=== PATIENT | female | born 2000 | race Caucasian/White ===

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

== ENCOUNTER → 2021-02-01 13:47 | Outpatient (BNVA) | payer BC, MEDICAID, SELFPAY | PROVIDERS: Family Provider Nurse Practitioner Family; PCP Nurse Practitioner; Visit Provider Specialist | DX: G43.709 Chronic migraine without aura, not intractable, without status migrainosus (principal); M79.7 Fibromyalgia; G80.1 Spastic diplegic cerebral palsy; F41.9 Anxiety disorder, unspecified; G25.0 Essential tremor | CPT/HCPCS: 20550; 20552; 64615; 99214; J0585; J1030; J3490 ==

== ENCOUNTER → 2021-05-03 11:42 | Outpatient (BNVA) | payer BC, MEDICAID, SELFPAY | PROVIDERS: Family Provider Nurse Practitioner Family; PCP Nurse Practitioner; Visit Provider Specialist | DX: G43.711 Chronic migraine without aura, intractable, with status migrainosus (principal); G80.1 Spastic diplegic cerebral palsy; M46.1 Sacroiliitis, not elsewhere classified; M79.7 Fibromyalgia; F41.9 Anxiety disorder, unspecified; G25.0 Essential tremor | CPT/HCPCS: 64615; J0585 ==

== ENCOUNTER 2021-06-28 13:09 | Emergency (ER) | payer BC, MEDICAID, SELFPAY ==
[2021-06-28 13:30] VITALS: BP 143/94; PULSE 97; RESP 16; TEMP 36.7; O2SAT 96; BMI 35.2
--- NOTE | 2021-06-28 15:24 | W.ED.GENADLT ---
HPI - General Adult General: Chief complaint: General Medical Stated complaint: LOWER ABD PAIN/PRESSURE, NAUSEA Time Seen by Provider: 06/28/21 14:45 History of Present Illness: HPI narrative: Patient comes in complaining of numbness in her bilateral legs that started yesterday. States it started in her right leg and moved to the left leg. Denies any weakness. States this started after getting the COVID-vaccine. Denies any fever, nausea, vomiting, diarrhea. Associated symptoms: Deny chest pain, dyspnea, headache(s), nausea, rash, palpitations or vomiting Review of Systems Const: Denies: fever(s) or body aches Eyes: Denies: change in vision or blurry vision ENMT: Denies: throat pain or odynophagia Card: Denies: chest pain or palpitations Resp: Denies: dyspnea or productive cough GI: Reports: abdominal pain; Denies: nausea or vomiting : Denies: flank pain or dysuria Musc: Denies: neck pain or back pain Skin/Breast: Denies: rash or pruritus Neuro: Reports: numbness in extremities; Denies: headache(s) Psych: Denies: anxiety or change in appetite Endo: Denies: polyuria or excessive sweating PFSH ED PFSH: Medical History Cerebral palsy Chronic migraine without aura, intractable, with status migrainosus Foot anomaly, congenital Surgical History H/O release of tendon Social History Smoking risk assessment/counseling performed?: No Alcohol intake: never Counseling given: No Counseling given: No Lives independently: Yes Household members: family Marital status: Single Current occupational status: student and disabled History of recent travel: No Current gender identity: Female Physical Exam Const: COMMON NORMALS: no acute distress, patient oriented x3, healthy appearing and alert HENMT: COMMON NORMALS: normocephalic and atraumatic HEAD & SCALP: normocephalic and atraumatic Eye: COMMON NORMALS: Equal, round and reactive pupils present and EOMs intact bilaterally PUPIL: Yes Equal, round and reactive pupils present Neck/C-Spine: COMMON NORMALS: full ROM and supple Resp: COMMON NORMALS: normal respiratory effort, No retractions and No use of accessory muscles Cardio: COMMON NORMALS: regular rate and regular rhythm RATE: regular rate RHYTHM: regular rhythm GI: COMMON NORMALS: Normal to inspection, nondistended, normoactive bowel sounds present, Soft to palpation and non-tender PALPATION: Yes Soft to palpation Back/Pelvis: COMMON NORMALS: thoracic and lumbar spine normal to inspection and no thoracic nor lumbar tenderness Extremity: COMMON NORMALS: normal to inspection and full ROM Neuro: COMMON NORMALS: patient oriented x3 SENSORIUM/ORIENTATION: Yes alert SENSORY EXAM: Yes extremities (Subjective mild decrease in sensation of bilateral legs) Psych: COMMON NORMALS: mental status grossly normal and cooperative Skin: COMMON NORMALS: no rashes or lesions noted and no wounds GENERAL SKIN EXAM: no rashes or lesions noted Course Vital Signs: Vital signs: Vital Signs Temperature 98.0 F 06/28/21 13:30 Pulse Rate 97 06/28/21 13:30 Respiratory Rate 16 06/28/21 13:30 Blood Pressure 143/94 06/28/21 13:30 Pulse Oximetry 96 06/28/21 13:30 MDM - General Adult MDM Narrative: Medical decision making narrative: Patient comes in complaining of numbness in her bilateral legs that started yesterday. States it started in her right leg and moved to the left leg. Denies any weakness. States this started after getting the COVID-vaccine. Denies any fever, nausea, vomiting, diarrhea. She also complains of some mild suprapubic abdominal pain. Physical exam is unremarkable. Strength is 5 out of 5 in bilateral lower extremities. Reflexes are equal in all 4 extremities. Will check labs, and reassess. On reassessment I talked to the patient about the test results. Will discharge at this time with precautions return for worsening or changing symptoms. Lab Data: Labs: Lab Results 06/28/21 06/28/21 16:30 16:30 WBC 7.9 10^3/uL 10^3/ uL (4.5-13.0) RBC 5.20 10^6/uL 10^6 /uL (4.1-5.3) Hgb 15.8 g/dL H g/dL (11.5-15.3) Hct 47.3 % H % (37.0-47.0) MCV 91.0 fl fl (81-99) MCH 30.4 pg pg (28.0-34.0) MCHC 33.4 g/dL g/dL (30.0-36.0) RDW 12.2 % % (12.1-15.1) Plt Count 375 10^3/cmm 10^3 /cmm (130-400) MPV 8.8 fL fL (7.4-10.4) Neut % (Auto) 49.6 % % Lymph % (Auto) 39.7 % % [place] % (Auto) 9.1 % % Eos % (Auto) 0.9 % % Baso % (Auto) 0.6 % % Neut # (Auto) 3.91 10^3/uL 10^3 /uL (1.8-8.0) Lymph # (Auto) 3.1 10^3/uL 10^3/ uL (1.5-6.5) [place] # (Auto) 0.7 10^3/uL 10^3/ uL (0.2-0.9) Eos # (Auto) 0.1 10^3/uL 10^3/ uL (0.0-0.8) Baso # (Auto) 0.1 10^3/uL 10^3/ uL (0.0-0.1) Nucleated RBC % (a uto) 0 % % Nucleated RBCs # 0.0 /100WBC /100W BC ESR 30 mm/hr H mm/hr (0-15) Sodium 138 mmol/L mmol/L (136-145) Potassium 3.9 mmol/L mmol/L (3.5-5.1) Chloride 100 mmol/L mmol/L (98-107) Carbon Dioxide 22 mmol/L mmol/L (22-29) Anion Gap 19.9 H (5-19) BUN 6 mg/dL mg/dL (6-20) Creatinine 0.5 mg/dL mg/dL (0.5-0.9) GFR Calculation 158.9 mL/min H mL /min (90-130) Glucose 87 mg/dL mg/dL (65-115) Calculated Osmolal ity 283 mOsm/kg L mOs m/kg (285-295) Calcium 9.0 mg/dL mg/dL (8.5-10.5) Total Bilirubin 0.9 mg/dL mg/dL (0.15-1.2) AST 33 U/L H U/L (0-32) ALT 39 U/L H U/L (0-33) Alkaline Phosphata se 103 IU/L IU/L (35-105) C-Reactive Protein 48.0 mg/L H mg/L (0.0-4.9) Total Protein 8.0 g/dL g/dL (6.6-8.7) Albumin 4.3 g/dL g/dL (3.5-5.2) Globulin 3.7 g/dL g/dL (1.3-4.6) Lipase 26 U/L U/L (13-60) Discharge Plan Discharge Patient Disposition: Home Clinical Impression: Adverse effect of COVID-19 vaccine Condition: Stable Prescriptions: No Action ciprofloxacin 250 mg/5 mL suspension,microcapsule recon 250 mg PO BID RF: 0 desvenlafaxine 50 mg tablet extended release 24 hr 50 mg PO DAILY RF: 0 cranberry 400 mg capsule 400 mg PO DAILY RF: 0 wenyfgsotjis-Dn-mnbc-minerals 18-0.4 mg tablet PO RF: 0 multivitamin with minerals [Hair,Skin and Nails] Tablet 1 tab PO DAILY RF: 0 ondansetron HCl [Zofran] 4 mg tablet 4 mg PO Q6H RF: 0 diclofenac potassium 50 mg tablet 50 mg PO BID RF: 0 cetirizine 10 mg capsule 10 mg PO QDAY RF: 0 melatonin 10 mg capsule 10 mg PO QDAY PRNRF: 0 tizanidine 4 mg capsule 4 mg PO Q8H PRNRF: 0 omeprazole 40 mg capsule,delayed release(DR/EC) 40 mg PO DAILY RF: 0 diazepam [Valium] 10 mg tablet 10 mg PO .PRN PRN (Reason: anxiety) 90 Days Qty: 7 RF: 2 Mirena 20 mcg/24 hours (6 yrs) 52 mg intrauterine device intrauterine RF: 0 sumatriptan succinate [Imitrex] 100 mg tablet 100 mg PO Q2H Qty: 9 RF: 3 venlafaxine [Effexor XR] 150 mg capsule,extended release 24hr 150 mg PO DAILY Qty: 30 RF: 4 propranolol 40 mg tablet 20 mg PO BID Qty: 60 RF: 2 Discharge Orders: Discharge ED (Routine); Ordered 06/28/21 Ordered By: Juan Pablo Ayala Referrals: Magnus Jiang, DOCTOR OF NURSE ANESTHESIA [Primary Care Provider] - Coding Level of Care Code ED Network Security Consultant for Chg Fwd Exam Comprehensive
[2021-06-28 16:44] LABS: Basophils # 0.1 10^3/uL (0.0-0.1); Basophils % 0.6 %; Eosinophils # 0.1 10^3/uL (0.0-0.8); Eosinophils % 0.9 %; Hematocrit 47.3 % (37.0-47.0); Hemoglobin 15.8 g/dL (11.5-15.3); Lymphocytes # 3.1 10^3/uL (1.5-6.5); Lymphocytes % 39.7 %; Mean Corpuscular HGB Conc 33.4 g/dL (30.0-36.0); Mean Corpuscular Hemoglobin 30.4 pg (28.0-34.0); Mean Platelet Volume 8.8 fL (7.4-10.4); Monocytes # 0.7 10^3/uL (0.2-0.9); Monocytes % 9.1 %; Neutrophils # 3.91 10^3/uL (1.8-8.0); Neutrophils % 49.6 %; Nucleated Red Blood Cells % 0 %; Platelet Count 375 10^3/cmm (130-400); Red Cell Distribution Width 12.2 % (12.1-15.1); White Blood Count 7.9 10^3/uL (4.5-13.0)
[2021-06-28 16:53] LABS: Erythrocyte Sedimentation Rate 30 mm/hr (0-15)
[2021-06-28 17:17] LABS: Alanine Aminotransferase 39 U/L (0-33); Albumin Level 4.3 g/dL (3.5-5.2); Alkaline Phosphatase 103 IU/L (35-105); Anion Gap 19.9 (5-19); Aspartate Amino Transferase 33 U/L (0-32); Blood Urea Nitrogen 6 mg/dL (6-20); Carbon Dioxide 22 mmol/L (22-29); Chloride 100 mmol/L (98-107); Globulin 3.7 g/dL (1.3-4.6); Glomerular Filtration Rate 158.9 mL/min (90-130); Glucose 87 mg/dL (65-115); Lipase 26 U/L (13-60); Osmolality Calculated 283 mOsm/kg (285-295); Potassium 3.9 mmol/L (3.5-5.1); Sodium 138 mmol/L (136-145); Total Bilirubin 0.9 mg/dL (0.15-1.2)
[2021-06-28 19:05] VITALS: BP 143/94; PULSE 96; RESP 16; O2SAT 97
== END 2021-06-28 19:07 | disposition home or self-care (01) ==
PROVIDERS: Nurse Practitioner Family; Emergency Provider Emergency Medicine; PCP Nurse Practitioner
DX: T88.7XXA Unspecified adverse effect of drug or medicament, initial encounter (principal); T50.B95A Adverse effect of other viral vaccines, initial encounter; G80.9 Cerebral palsy, unspecified
CPT/HCPCS: 36415; 80053; 83690; 85025; 85651; 86140; 99282

== ENCOUNTER → 2021-07-26 11:39 | Outpatient (BNVA) | payer BC, MEDICAID, SELFPAY | PROVIDERS: PCP Nurse Practitioner; Visit Provider Specialist | DX: G43.711 Chronic migraine without aura, intractable, with status migrainosus (principal) | CPT/HCPCS: 64615; J0585 ==

== ENCOUNTER → 2021-09-27 07:50 | Outpatient (BNVA) | payer BC, MEDICAID, SELFPAY | PROVIDERS: PCP Nurse Practitioner; Visit Provider Podiatrist Foot & Ankle Surgery | DX: L60.0 Ingrowing nail (principal); Z98.890 Other specified postprocedural states; L60.3 Nail dystrophy | CPT/HCPCS: 11750; 99213 ==

== ENCOUNTER → 2021-10-09 08:51 | Outpatient (BNVA) | payer BC, MEDICAID, SELFPAY | PROVIDERS: PCP Nurse Practitioner; Visit Provider Podiatrist Foot & Ankle Surgery | DX: L60.0 Ingrowing nail (principal); Z98.890 Other specified postprocedural states | CPT/HCPCS: 99213 ==

== ENCOUNTER → 2021-10-18 11:46 | Outpatient (BNVA) | payer BC, MEDICAID, SELFPAY | PROVIDERS: PCP Nurse Practitioner; Visit Provider Specialist | DX: G43.711 Chronic migraine without aura, intractable, with status migrainosus (principal) | CPT/HCPCS: 64615; J0585 ==

== ENCOUNTER → 2022-01-10 13:19 | Outpatient (BNVA) | payer MEDICARE, BC, MEDICAID, SELFPAY | PROVIDERS: PCP Nurse Practitioner; Visit Provider Specialist | DX: G43.711 Chronic migraine without aura, intractable, with status migrainosus (principal) | CPT/HCPCS: 64615; J0585 ==

== ENCOUNTER 2022-01-15 23:18 | Emergency (ER) | payer MEDICARE, BC, MEDICAID, SELFPAY ==
[2022-01-15 23:44] VITALS: BP 157/108; PULSE 98; RESP 18; TEMP 36.7; O2SAT 98; BMI 37.1
[2022-01-16 00:15] LABS: Basophils # 0.1 10^3/uL (0.0-0.1); Basophils % 0.7 %; Eosinophils % 0.2 %; Hematocrit 46.2 % (37.0-47.0); Hemoglobin 15.7 g/dL (11.5-15.3); Lymphocytes # 4.2 10^3/uL (1.5-6.5); Mean Corpuscular Hemoglobin 30.5 pg (28.0-34.0); Mean Corpuscular Volume 89.9 fl (81-99); Mean Platelet Volume 8.8 fL (7.4-10.4); Monocytes # 0.7 10^3/uL (0.2-0.9); Monocytes % 4.7 %; Neutrophils # 10.37 10^3/uL (1.8-8.0); Neutrophils % 67.1 %; Nucleated Red Blood Cells % 0 %; Platelet Count 481 10^3/cmm (130-400); Red Blood Count 5.14 10^6/uL (4.1-5.3); Red Cell Distribution Width 11.9 % (12.1-15.1); White Blood Count 15.5 10^3/uL (4.5-13.0)
[2022-01-16 00:29] LABS: Alanine Aminotransferase 36 U/L (0-33); Albumin Level 4.3 g/dL (3.5-5.2); Alkaline Phosphatase 105 IU/L (35-105); Anion Gap 18.8 (5-19); Aspartate Amino Transferase 31 U/L (0-32); Blood Urea Nitrogen 9 mg/dL (6-20); Calcium 9.9 mg/dL (8.5-10.5); Carbon Dioxide 22 mmol/L (22-29); Chloride 103 mmol/L (98-107); Glomerular Filtration Rate 157.3 mL/min (90-130); Glucose 98 mg/dL (65-115); Lipase 42 U/L (13-60); Osmolality Calculated 289 mOsm/kg (285-295); Potassium 3.8 mmol/L (3.5-5.1); Sodium 140 mmol/L (136-145); Total Bilirubin 0.9 mg/dL (0.15-1.2); Total Protein 8.3 g/dL (6.6-8.7)
[2022-01-16 00:35] LABS: HCG, Serum Qual Negative (Negative)
[2022-01-16] MEDS: ondansetron 2 mg/ML SDV 2 mL 4 MG IVP (00:58)
--- NOTE | 2022-01-16 01:44 | CTR_ITS ---
PROCEDURE INFORMATION: Exam: CT Abdomen And Pelvis Without Contrast Exam date and time: 01/16/2022 2:01 AM Age: 21 years old Clinical indication: Nausea and vomiting; Abdominal pain; Generalized; Prior surgery; Surgery type: Iud. Back. Patient HX: Abd pain with n/v and recent abnormal weight loss. TECHNIQUE: Imaging protocol: Computed tomography of the abdomen and pelvis without contrast. Radiation optimization: All CT scans at this facility use at least one of these dose optimization techniques: automated exposure control; mA and/or kV adjustment per patient size (includes targeted exams where dose is matched to clinical indication); or iterative reconstruction. COMPARISON: CT abdomen pelvis w con* [id number] 06/04/2018 12:00 PM RADIATION DOSE METRICS: Total DLP (mGy-cm): 994.97 FINDINGS: Lungs: The lung bases are clear. Liver: There is fatty infiltration of the liver. Evaluated portions of the liver otherwise appear essentially unremarkable. The upper liver is not included. Gallbladder and bile ducts: No definite gallbladder abnormality by CT. No biliary tree dilation. Pancreas: Unremarkable. Spleen: Unremarkable. Adrenal glands: Unremarkable. Kidneys and ureters: Relatively small right kidney, with areas of parenchymal scarring, similar to the prior exam. No hydronephrosis of either kidney. No visible renal or ureteral calculus. No perinephric fluid. Stomach and bowel: Possibility of somewhat thickened mucosa/wall in the distal antrum of the stomach. This is a nonspecific appearance, and could be transient on CT, but could also represent evidence for gastritis or peptic ulcer disease. Please correlate clinically. No significant bowel distention. There are no CT findings to strongly suggest diverticulitis. Appendix: The appendix is visualized and appears normal. Intraperitoneal space: No free intraperitoneal air, or ascites. Vasculature: No evidence for abdominal aortic aneurysm. Lymph nodes: No retroperitoneal adenopathy. Urinary bladder: No visible calculus in the urinary bladder. Possibly some mild diffuse urinary bladder wall thickening. However, evaluation is somewhat limited, as the bladder is not well distended. While nonspecific, this could indicate evidence for cystitis. Please correlate clinically. Reproductive: An IUD is present within the uterus. 55 x 43 x 55 mm right adnexal/ovarian cyst. This is somewhat large for a physiologic cyst, but that is still fairly likely in this young age group. Other etiologies are not excluded. Ultrasound could further evaluate these ovarian findings if felt clinically indicated, and could also be used for appropriate follow-up, to insure against a persistent or enlarging lesion/neoplasm. Ultrasound may also be useful if there is clinical concern for ovarian torsion. No significant cul-de-sac fluid. Bones/joints: No significant acute finding. Soft tissues: No significant acute finding. CT/CT abdomen pelvis wo con [id number] IMPRESSION: 1. 55 x 43 x 55 mm right adnexal/ovarian cyst, see above discussion. 2. No free air or bowel distention. No evidence for bowel obstruction. 3. Normal appendix. 4. Possible thickened mucosa/wall in the distal stomach, see above discussion. 5. No hydronephrosis of either kidney. No visible ureteral calculus. 6. Possible mild urinary bladder wall thickening, see above. 7. Other findings discussed above.
--- NOTE | 2022-01-16 01:44 | ED_ITS ---
HPI - Abdominal Pain General: Chief Complaint: Abdominal Pain Stated Complaint: ABD Pain/N/V/D Time Seen by Provider: 01/15/22 23:43 Source: patient Mode of arrival: ambulatory Limitations: no limitations History of Present Illness: 21-year-old female who has chronic history of GI issues. States she is actually scheduled next week for scope with general surgeon here. States that tonight started having vomiting diarrhea but is having more pain than typical she is having diffuse pain she rates a 7 out of 10 denies any fevers. She denies any worsening improving factors. Associated Symptoms: Reports diarrhea, nausea and vomiting; Denies chills, dysuria and fever(s) Review of Systems Const: Denies: fever(s), chills, body aches or change in appetite Eyes: Denies: blurry vision or eye discomfort ENMT: Denies: throat pain or dental pain Card: Denies: chest pain Resp: Denies: dyspnea GI: Reports: abdominal pain, nausea, vomiting and diarrhea : Denies: dysuria Musc: Denies: neck pain or back pain Skin/Breast: Denies: rash Neuro: Denies: headache(s) Psych: Denies: depression Madhu/Lymph: Denies: easy bruising All/Imm: Denies: urticaria PFSH ED PFSH: Medical History Cerebral palsy Chronic migraine without aura, intractable, with status migrainosus Foot anomaly, congenital Surgical History H/O release of tendon Social History Smoking and tobacco status: never smoked Smoking risk assessment/counseling performed?: No Alcohol intake: never Counseling given: No Counseling given: No Lives independently: Yes Household members: family Marital status: Single Current occupational status: student and disabled History of recent travel: No Current gender identity: Female Physical Exam Const: COMMON NORMALS: no acute distress, patient oriented x3 and healthy appearing HENMT: COMMON NORMALS: normocephalic and atraumatic HEAD & SCALP: normocephalic and atraumatic Eye: COMMON NORMALS: Equal, round and reactive pupils present and EOMs intact bilaterally PUPIL: Yes Equal, round and reactive pupils present Neck/C-Spine: COMMON NORMALS: full ROM and supple Chest: COMMONS NORMALS: normal inspection of the chest and normal palpation of entire chest wall Resp: COMMON NORMALS: normal respiratory effort, No retractions, No use of accessory muscles and clear to auscultation bilaterally AUSCULTATION: clear to auscultation bilaterally Cardio: COMMON NORMALS: regular rate, regular rhythm and No murmurs present (Cardio) RATE: regular rate RHYTHM: regular rhythm GI: COMMON NORMALS: Soft to palpation, non-tender and no masses PALPATION: Yes Soft to palpation OTHER: diffuse tenderness Extremity: COMMON NORMALS: normal to inspection and full ROM Neuro: COMMON NORMALS: patient oriented x3, moves all extremities and no focal motor deficits Psych: COMMON NORMALS: mental status grossly normal, Normal thought process present and cooperative THOUGHT PROCESS: Normal thought process present Skin: COMMON NORMALS: no rashes or lesions noted and no wounds GENERAL SKIN EXAM: no rashes or lesions noted Course Vital Signs: Vital signs: Vital Signs Temperature 98.1 F 01/15/22 23:44 Pulse Rate 98 01/15/22 23:44 Respiratory Rate 18 01/16/22 01:59 Blood Pressure 157/108 01/15/22 23:44 Pulse Oximetry 98 01/16/22 01:59 Oxygen Delivery Me thod 01/15/22 23:44 MDM - Abdominal Pain Medical Decision Making Patient presents here with vomiting is been chronic in nature she feels much improved here after Reglan she has follow-up with Dr. Pringle of surgery for scope on Friday. Her CT showed a ovarian cyst she has a history of ovarian cyst she is not in severe pain she has no signs of torsion here she stable for discharge we will get her OB follow-up as well she is to return if worsening she understands agrees to plan. 0 Lab Data : 01/15/22 23:57 01/15/22 23:57 Labs/Radiology: Radiology Impressions Abdomen/Pelvis CT 01/16/22 01:44 IMPRESSION: 1. 55 x 43 x 55 mm right adnexal/ovarian cyst, see above discussion. 2. No free air or bowel distention. No evidence for bowel obstruction. 3. Normal appendix. 4. Possible thickened mucosa/wall in the distal stomach, see above discussion. 5. No hydronephrosis of either kidney. No visible ureteral calculus. 6. Possible mild urinary bladder wall thickening, see above. 7. Other findings discussed above. Laboratory Results WBC 15.5 10^3/uL (4.5-13.0) H 01/15/22 23:57 RBC 5.14 10^6/uL (4.1-5.3) 01/15/22 23:57 Hgb 15.7 g/dL (11.5-15.3) H 01/15/22 23:57 Hct 46.2 % (37.0-47.0) 01/15/22 23:57 MCV 89.9 fl (81-99) 01/15/22 23:57 MCH 30.5 pg (28.0-34.0) 01/15/22 23:57 MCHC 34.0 g/dL (30.0-36.0) 01/15/22 23:57 RDW 11.9 % (12.1-15.1) L 01/15/22 23:57 Plt Count 481 10^3/cmm (130-400) H 01/15/22 23:57 MPV 8.8 fL (7.4-10.4) 01/15/22 23:57 Neut % (Auto) 67.1 % 01/15/22 23:57 Lymph % (Auto) 27.0 % 01/15/22 23:57 [place] % (Auto) 4.7 % 01/15/22 23:57 Eos % (Auto) 0.2 % 01/15/22 23:57 Baso % (Auto) 0.7 % 01/15/22 23:57 Neut # (Auto) 10.37 10^3/uL (1.8-8.0) H 01/15/22 23:57 Lymph # (Auto) 4.2 10^3/uL (1.5-6.5) 01/15/22 23:57 [place] # (Auto) 0.7 10^3/uL (0.2-0.9) 01/15/22 23:57 Eos # (Auto) 0.0 10^3/uL (0.0-0.8) 01/15/22 23:57 Baso # (Auto) 0.1 10^3/uL (0.0-0.1) 01/15/22 23:57 Nucleated RBC % (auto) 0 % 01/15/22 23:57 Nucleated RBCs # 0.0 /100WBC 01/15/22 23:57 Sodium 140 mmol/L (136-145) 01/15/22 23:57 Potassium 3.8 mmol/L (3.5-5.1) 01/15/22 23:57 Chloride 103 mmol/L (98-107) 01/15/22 23:57 Carbon Dioxide 22 mmol/L (22-29) 01/15/22 23:57 Anion Gap 18.8 (5-19) 01/15/22 23:57 BUN 9 mg/dL (6-20) 01/15/22 23:57 Creatinine 0.5 mg/dL (0.5-0.9) 01/15/22 23:57 GFR Calculation 157.3 mL/min (90-130) H 01/15/22 23:57 Glucose 98 mg/dL (65-115) 01/15/22 23:57 Calculated Osmolality 289 mOsm/kg (285-295) 01/15/22 23:57 Calcium 9.9 mg/dL (8.5-10.5) 01/15/22 23:57 Total Bilirubin 0.9 mg/dL (0.15-1.2) 01/15/22 23:57 AST 31 U/L (0-32) 01/15/22 23:57 ALT 36 U/L (0-33) H 01/15/22 23:57 Alkaline Phosphatase 105 IU/L (35-105) 01/15/22 23:57 Total Protein 8.3 g/dL (6.6-8.7) 01/15/22 23:57 Albumin 4.3 g/dL (3.5-5.2) 01/15/22 23:57 Globulin 4.0 g/dL (1.3-4.6) 01/15/22 23:57 Lipase 42 U/L (13-60) 01/15/22 23:57 HCG, Qual Negative (Negative) 01/15/22 23:57 Urine Color Yellow (Yellow) 01/16/22 01:17 Urine Appearance Clear (CLEAR) 01/16/22 01:17 Urine pH 6 (5-7) 01/16/22 01:17 Ur Specific Revloc 1.020 (1.005-1.030) 01/16/22 01:17 Urine Protein Neg (Negative) 01/16/22 01:17 Urine Glucose (UA) Norm (Normal) 01/16/22 01:17 Urine Ketones 2+ (Negative) H 01/16/22 01:17 Urine Blood 3+ (Negative) H 01/16/22 01:17 Urine Nitrate Negative (Negative) 01/16/22 01:17 Urine Bilirubin Neg (Negative) 01/16/22 01:17 Urine Urobilinogen Norm mg/dL (Negative) 01/16/22 01:17 Ur Leukocyte Esterase Negative (Negative) 01/16/22 01:17 Urine RBC 0-4 /hpf (0-2) H 01/16/22 01:17 Urine WBC 15-25 /hpf (0-5) H 01/16/22 01:17 Ur Squamous Epith Cells 25-40 /hpf (0-5) H 01/16/22 01:17 Amorphous Sediment Not Reportable 01/16/22 01:17 Urine Bacteria 2+ /hpf (NONE) H 01/16/22 01:17 Urine Mucus 2+ /hpf 01/16/22 01:17 Discharge Plan Discharge Patient Disposition: Home Clinical Impression: Vomiting, Ovarian cyst Condition: Stable Prescriptions: New hydrocodone-acetaminophen 5-325 mg tablet 1 tab PO Q6H PRN (Reason: pain) Qty: 14 0RF ondansetron 4 mg tablet,disintegrating 4 mg PO Q6H PRN (Reason: nausea and vomiting) Qty: 14 0RF No Action desvenlafaxine 50 mg tablet extended release 24 hr 50 mg PO DAILY diclofenac potassium 50 mg tablet 50 mg PO BID cetirizine 10 mg capsule 10 mg PO QDAY tizanidine 4 mg capsule 4 mg PO Q8H PRN diazepam [Valium] 10 mg tablet 10 mg PO .PRN PRN (Reason: anxiety) 90 Days Qty: 7 2RF Rx Instructions: As needed for Botox Mirena 20 mcg/24 hours (6 yrs) 52 mg intrauterine device intrauterine escitalopram oxalate [Lexapro] 10 mg tablet 10 mg PO DAILY fluticasone propionate [Children's Flonase Allergy Rlf] 50 mcg/actuation sp ray,suspension 1 spray intranasal BID Rx Instructions: administer into each nostril pantoprazole 40 mg tablet,delayed release (DR/EC) 40 mg PO DAILY famotidine 20 mg tablet 20 mg PO DAILY ondansetron 8 mg tablet,disintegrating 8 mg PO Q8H imipramine HCl 10 mg tablet 50 mg PO .at bedtime sumatriptan succinate [Imitrex] 100 mg tablet 100 mg PO Q2H Qty: 9 3RF propranolol 40 mg tablet See Rx Instructions .ROUTE .COMPLEX Qty: 60 2RF Dose Instruction: TAKE ONE HALF (1/2) TABLET BY MOUTH TWICE A DAY Rx Instructions: TAKE ONE HALF (1/2) TABLET BY MOUTH TWICE A DAY peg 3350-electrolytes [Golytely] 236-22.74-6.74 -5.86 gram recon soln 240 ml PO Q10M Qty: 4000 0RF Rx Instructions: until fecal effluent is clear Discharge Orders: Discharge ED (Routine); Ordered 01/16/22 Ordered By: Belia Roche Referrals: Magnus Jiang FNP [Primary Care Provider] - Ashlee Leija MD [Physician] - 1-3 days Discharge Diet: Advance as tolerated Discharge Activity: Resume usual activity Patient Instructions: Ovarian Cyst (ED), Opioid Safety Coding Level of Care Code ED Orthopaedic General for Chg Fwd Exam Comprehensive
[2022-01-16 01:59] VITALS: RESP 18; O2SAT 98
[2022-01-16] MEDS: morphine 4 mg/mL SDV 1 mL IVP (01:59)
--- NOTE | 2022-01-16 01:59 | PC.NURSE ---
patient transported to ct via wheelchair per Ct techinican with no difficulties.
[2022-01-16 02:02] LABS: Add Urine Microscopic? YES; Bacteria Urine 2+ /hpf; Bilirubin Urine Neg (Negative); Blood Urine 3+ (Negative); Glucose Urine UA Norm (Normal); Ketones Urine 2+ (Negative); Leukocyte Esterase Urine Negative (Negative); Mucus Urine 2+ /hpf; Nitrate Urine Negative (Negative); Protein Urine Neg (Negative); RBC Urine 0-4 /hpf (0-2); Squamous Epithelial Cell Urine 25-40 /hpf (0-5); Urine Appearance Clear (CLEAR); Urine Color Yellow (Yellow); Urobilinogen Urine Norm (Negative); WBC Urine 15-25 /hpf (0-5); pH Urine 6 (5-7)
[2022-01-16 02:03] LABS: Add Urine Culture? No
[2022-01-16] MEDS: diphenhydrAMINE 50 mg/mL SDV 1mL IVP (02:36)
[2022-01-16] MEDS: metoclopramide 5 mg/mL SDV 2 mL 10 MG IVP (02:36)
[2022-01-16] MEDS: sodium chloride 0.9% 1,000 ML 999 ML IV ×2 (02:36)
[2022-01-16 05:12] VITALS: BP 157/101; PULSE 94; RESP 18; TEMP 37.1; O2SAT 98
--- NOTE | 2022-01-16 21:04 | DCPLANNER ---
Addendum entered by Lilian Salgado 02/14/22 08:02: manager commercial was sent the following message from [facility] regarding follow up appointment: LEFT PT. TO VOICEMAILS AND SENT LETTER Original Note: manager commercial had message to schedule a follow up appointment for patient with [facility]. manager commercial sent patients information to the front office staff at [facility]. Patients information will be printed and reviewed. Clinic will call patient with appointment information.
== END 2022-01-16 05:14 | disposition home or self-care (01) ==
PROVIDERS: Emergency Provider Emergency Medicine; PCP Nurse Practitioner
DX: N83.201 Unspecified ovarian cyst, right side (principal); R11.11 Vomiting without nausea; G80.9 Cerebral palsy, unspecified
CPT/HCPCS: 74176; 80053; 81001; 83690; 84703; 85025; 96361; 96374; 96375; 99285; J1200; J2270; J2405; J2765; J7030

== ENCOUNTER 2022-01-21 06:06 | Day surgery (SDC) | payer MEDICARE, BC, MEDICAID, SELFPAY ==
[2022-01-18 07:41] VITALS: BMI 37.0
[2022-01-21 06:29] VITALS: BP 140/107; PULSE 97; RESP 18; TEMP 36.3; O2SAT 95
[2022-01-21] MEDS: sodium chloride 0.9% 1,000 ML 30 ML IV (06:43)
[2022-01-21 06:46] LABS: OR HCG Qualitative Urine Negative (Negative)
--- NOTE | 2022-01-21 06:54 | P.ANESASSM_ITS ---
Pre-Anesthetic Assessment Height/Weight: Height 1.52 m Weight 86.183 kg Temp Pulse Resp BP Pulse Ox O2 Del Method 97.4 F L 97 18 140/107 95 01/21/22 06:29 01/21/22 06:29 01/21/22 06:29 01/21/22 06:29 01/21/22 06:29 01/21/22 06:29 Preop Diagnosis: Heartburn Operation Date: 01/21/22 07:30 Proposed Procedures p EGD 15824,R10.3(Not Applicable) - Artie Do MD Familial anesthetic complications: none Was Beta Gavin taken within 24 hours: N/A Was Clonidine taken within 24 hours: N/A Last intake: Intake Last Liquid Date 01/20/22 Last Liquid Time 21:00 Last Solid Date 01/20/22 Last Solid Time 17:45 Last Intake: 20:00 Social No alcohol and No tobacco Exam alert and oriented x 3 Airway Submandibular: within normal limits Cervical ROM: within normal limits Mallampati: Class III Dentition: full History/ROS No significant history except as noted Pulmonary None reported CV/HEM None reported None reported Hepatic None reported GI Gastroesophageal Reflux Disease Metabolic Morbid Obesity [facility] [place] Lower Back Pain Neuropsych Anxiety and Depression Anesthetic Plan ASA status: 3 Anesthesia: Anesthesia Evaluation and MAC Risk of > 500 ml blood loss (7ml/kg in children): No Medications/Allergies Home Medications Medication Instructions Recorded Confirmed Last Taken Type cetirizine 10 mg capsule 10 mg PO QDAY 07/01/19 01/21/22 01/20/22 History diclofenac potassium 50 mg tablet 50 mg PO BID 07/01/19 01/21/22 01/20/22 His tory diazepam 10 mg tablet (Valium) 10 mg PO .PRN PRN anxiety 3 months 03/16/20 01/21/22 Unknown Rx #7 tabs tizanidine 4 mg capsule 4 mg PO Q8H PRN Muscle Spasm 03/16/20 01/21/22 01/20/22 History levonorgestrel 20 mcg/24 hours (7 20 mcg intrauterine DIRECTED 12/27/20 01/21/22 Unknown History yrs) 52 mg intrauterine device (Mirena) desvenlafaxine 50 mg 50 mg PO DAILY 02/01/21 01/21/22 01/20/22 History tablet,extended release 24 hr famotidine 20 mg tablet 20 mg PO DAILY 11/27/21 01/21/22 01/20/22 History fluticasone propionate 50 1 spray intranasal BID 11/27/21 01/21/22 Unknown History mcg/actuation nasal spray,suspension (Children's Flonase Allergy Relief) imipramine HCl 10 mg tablet 50 mg PO .at bedtime 11/27/21 01/21/22 01/20/22 H istory pantoprazole 40 mg tablet,delayed 40 mg PO DAILY 11/27/21 01/21/22 01/20/22 History release propranolol 40 mg tablet See Rx Instructions .Route 12/18/21 01/21/22 01/20/22 Rx .COMPLEX #60 tabs hydrocodone 5 mg-acetaminophen 325 1 tab PO Q6H PRN pain #14 tabs 01/16/22 01/21/22 Unknown Rx mg tablet ondansetron 4 mg disintegrating 4 mg PO Q6H PRN nausea and 01/16/22 01/21/22 01/20/22 Rx tablet vomiting #14 tabs sumatriptan succinate 100 mg 100 mg PO Q2H PRN migraines 01/18/22 01/21/22 01/19/22 History tablet (Imitrex) Allergies Allergy/AdvReac Type Severity Reaction Status Date / Time Penicillins Allergy rash Verified 01/21/22 06:25 Current Medications Generic Name Dose Route Start Last Admin Trade Name Freq PRN Reason Stop Dose Admin Sodium Chloride 1,000 mls @ 30 mls/hr 01/21/22 06:15 01/21/22 06:43 Sodium Chloride 0.9% IV 30 mls/hr .Q24H DEMETRI Administration PFSH Anesthesia Medical History Cerebral palsy Chronic migraine without aura, intractable, with status migrainosus Foot anomaly, congenital Surgical History H/O release of tendon Social History Smoking and tobacco status: never smoked Smoking risk assessment/counseling performed?: No Alcohol intake: never Counseling given: No Counseling given: No Lives independently: Yes Household members: family Marital status: Single Current occupational status: student and disabled History of recent travel: No Current gender identity: Female Female Reproductive History Date of last menstrual period: 01/17/22 Data Anesthesia Cardiac Studies: No Data to Display
--- NOTE | 2022-01-21 07:33 | P.HP_ITS ---
Same Day Surgery H&P Indication for Procedure/HPI DATE OF PROCEDURE: January 21, 2022 CHIEF COMPLAINT/INDICATIONFOR SURGICAL PROCEDURE: Abdominal pain PREOP DIAGNOSIS: Heartburn PLANNED PROCEDURE: Operation Date: 01/21/22 07:30 Proposed Procedures p EGD 30625,R10.3(Not Applicable) - Artie Do MD Medications/Allergies* Home Medications Medication Instructions Recorded Confirmed Type cetirizine 10 mg capsule 10 mg PO QDAY 07/01/19 01/21/22 History diclofenac potassium 50 mg tablet 50 mg PO BID 07/01/19 01/21/22 History tizanidine 4 mg capsule 4 mg PO Q8H PRN Muscle Spasm 03/16/20 01/21/22 History levonorgestrel 20 mcg/24 hours (7 20 mcg intrauterine DIRECTED 12/27/20 01/21/22 History yrs) 52 mg intrauterine device (Mirena) desvenlafaxine 50 mg 50 mg PO DAILY 02/01/21 01/21/22 History tablet,extended release 24 hr famotidine 20 mg tablet 20 mg PO DAILY 11/27/21 01/21/22 History fluticasone propionate 50 1 spray intranasal BID 11/27/21 01/21/22 History mcg/actuation nasal spray,suspension (Children's Flonase Allergy Relief) imipramine HCl 10 mg tablet 50 mg PO .at bedtime 11/27/21 01/21/22 History pantoprazole 40 mg tablet,delayed 40 mg PO DAILY 11/27/21 01/21/22 History release sumatriptan succinate 100 mg 100 mg PO Q2H PRN migraines 01/18/22 01/21/22 History tablet (Imitrex) Allergies/Adverse Reactions Allergy/AdvReac Type Severity Reaction Status Date / Time Penicillins Allergy rash Verified 01/21/22 06:25 Current Medications: Generic Name Dose Route Start Last Admin Trade Name Freq PRN Reason Stop Dose Admin Sodium Chloride 1,000 mls @ 30 mls/hr 01/21/22 06:15 01/21/22 06:43 Sodium Chloride 0.9% IV 30 mls/hr .Q24H DEMETRI Administration Pertinent History/Comorbid Conditions* Medical History (Updated 01/16/22 @ 05:04 by Belia Roche MD) Cerebral palsy Chronic migraine without aura, intractable, with status migrainosus Foot anomaly, congenital Surgical History (Updated 10/09/21 @ 09:26 by Binh Mcfarland DPM) H/O release of tendon Social History Smoking and tobacco status: never smoked Smoking risk assessment/counseling performed?: No Alcohol intake: never Counseling given: No Counseling given: No Lives independently: Yes Household members: family Marital status: Single Current occupational status: student and disabled History of recent travel: No Current gender identity: Female Pertinent Exam Findings alert, oriented x 3, clear to auscultation bilaterally, regular rate & rhythm, operative site marked and procedure specific exam findings Recommendations Surgery/Procedure today Coding Level of Care Code Acute 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
[2022-01-21 07:50] VITALS: BP 151/95; PULSE 103; RESP 18; TEMP 36.6; O2SAT 93
[2022-01-21 07:59] VITALS: BP 128/109; PULSE 102; RESP 18; O2SAT 94
--- NOTE | 2022-01-21 08:21 | ANE.PACU2 ---
Inpatient post-anesthesia follow up: Airway intact: Yes Vital signs: Temperature 98 F Pulse Rate 102 Respiratory Rate 18 Blood Pressure 128/109 Pulse Oximetry 94 Oxygen Delivery Me thod Room Air Oxygen Flow Rate Fraction of Inspir ed Oxygen Hydration adequate: Yes Nausea and vomiting: No Pain level: 1 Mental status: Baseline
[2022-01-22 13:01] LABS: H. Pylori / CLO Test Negative
== END 2022-01-21 08:20 | disposition home or self-care (01) ==
PROVIDERS: Anesthesiology; PCP Nurse Practitioner; Visit Provider Internal Medicine
PROC: 0DJ08ZZ Inspection of Upper Intestinal Tract, Via Natural or Artificial Opening Endoscopic (ICD-10-PCS; CPT 43235; principal; 2022-01-21 07:30)
DX: R12 Heartburn (principal); R10.9 Unspecified abdominal pain; K31.89 Other diseases of stomach and duodenum; K29.70 Gastritis, unspecified, without bleeding
CPT/HCPCS: 43239; 81025; 84703; 87077; J2704; J7030

== ENCOUNTER 2022-04-04 | Outpatient (CLI) | payer MEDICARE, BC, MEDICAID, SELFPAY | END 2022-04-04 23:00 | disposition home or self-care (01) | LOC: RAD 04-16 01:48 | PROVIDERS: PCP Nurse Practitioner; Visit Provider Nurse Practitioner | DX: G43.711 Chronic migraine without aura, intractable, with status migrainosus (principal); G56.03 Carpal tunnel syndrome, bilateral upper limbs; G80.1 Spastic diplegic cerebral palsy | CPT/HCPCS: 64615; 99212; 99213; J0585 ==

== ENCOUNTER → 2022-04-19 11:50 | Outpatient (BNVA) | payer MEDICARE, BC, MEDICAID, SELFPAY | PROVIDERS: PCP Nurse Practitioner; Visit Provider Nurse Practitioner Women's Health | DX: N92.1 Excessive and frequent menstruation with irregular cycle (principal); Z97.5 Presence of (intrauterine) contraceptive device; G25.0 Essential tremor; R10.2 Pelvic and perineal pain | CPT/HCPCS: 84443; 84702; 85025; 87491; 87591; 87661 ==

== ENCOUNTER → 2022-05-16 10:47 | Outpatient (BNVA) | payer MEDICARE, BC, MEDICAID, SELFPAY | PROVIDERS: PCP Nurse Practitioner; Visit Provider Nurse Practitioner Women's Health | DX: R10.2 Pelvic and perineal pain (principal) | CPT/HCPCS: 76830 ==

== ENCOUNTER → 2022-06-27 12:25 | Outpatient (BNVA) | payer MEDICARE, BC, MEDICAID, SELFPAY | PROVIDERS: PCP Nurse Practitioner; Visit Provider Specialist | DX: G43.711 Chronic migraine without aura, intractable, with status migrainosus (principal) | CPT/HCPCS: 64615; J0585 ==

== ENCOUNTER → 2022-09-19 10:50 | Outpatient (BNVA) | payer MEDICARE, BC, MEDICAID, SELFPAY | PROVIDERS: PCP Nurse Practitioner; Visit Provider Specialist | DX: G43.711 Chronic migraine without aura, intractable, with status migrainosus (principal) | CPT/HCPCS: 64615; J0585 ==

== ENCOUNTER 2022-09-25 20:56 | Emergency (ER) | payer MEDICARE, BC, MEDICAID, SELFPAY ==
[2022-09-25 21:00] VITALS: BP 110/62; PULSE 88; RESP 16; TEMP 36.3; O2SAT 99; BMI 36.7
--- NOTE | 2022-09-26 00:24 | CTR_ITS ---
PROCEDURE INFORMATION: Exam: CT Abdomen And Pelvis With Contrast Exam date and time: 09/26/2022 1:23 AM Age: 21 years old Clinical indication: Nausea and vomiting; Abdominal pain; Localized; Right; Prior surgery; Surgery type: Iud; Patient HX: C/O RT sided abd pain with n/v/d. ; Additional info: Right side abdominal pain, n/v/d TECHNIQUE: Imaging protocol: Computed tomography of the abdomen and pelvis with contrast. Radiation optimization: All CT scans at this facility use at least one of these dose optimization techniques: automated exposure control; mA and/or kV adjustment per patient size (includes targeted exams where dose is matched to clinical indication); or iterative reconstruction. Contrast material: OMNI 350; Contrast volume: 100 ml; Contrast route: INTRAVENOUS (IV); REPORTING DATA: Count of CT and Cardiac NM exams in prior 12 months: This patient has received [address] and 0 known cardiac nuclear medicine studies in the 12 months prior to the current study. COMPARISON: CT abdomen pelvis wo con [id number] 01/16/2022 2:01 AM RADIATION DOSE METRICS: Total DLP (mGy-cm): 758.36 FINDINGS: Liver: Normal. No mass. Gallbladder and bile ducts: Normal. No calcified stones. No ductal dilation. Pancreas: Normal. No ductal dilation. Spleen: Normal. No splenomegaly. Adrenal glands: Normal. No mass. Kidneys and ureters: Lobulated right renal cortex with multiple cortical defects. Unremarkable renal parenchyma enhancement. Negative for hydronephrosis. Negative for renal stones. Negative for perinephric inflammation. Stomach and bowel: Unremarkable. No obstruction. No mucosal thickening. Appendix: Normal appendix. Intraperitoneal space: Unremarkable. No free air. No significant fluid collection. Vasculature: Unremarkable. No abdominal aortic aneurysm. Lymph nodes: Unremarkable. No enlarged lymph nodes. Urinary bladder: Unremarkable as visualized. Reproductive: IUD is present with grossly unremarkable position. Unremarkable uterus and adnexa. Bones/joints: Unremarkable. No acute fracture. Soft tissues: Unremarkable. CT/CT abdomen pelvis w con* [id number] IMPRESSION: Negative for acute abdominopelvic pathology.
--- NOTE | 2022-09-26 00:25 | ED_ITS ---
HPI - Abdominal Pain General: Chief Complaint: Nausea/Vomiting/Diarrhea Stated Complaint: N/V/D Time Seen by Provider: 09/25/22 23:31 History of Present Illness: Patient is a 21-year-old female comes to the ED via EMS with abdominal pain, nausea/vomiting/diarrhea. Patient was given a dose of morphine and Zofran while in ambulance. Past medical history of GERD and cerebral palsy. Symptoms started approximately a week ago with diarrhea and states she has been having approximately 5-7 episodes of diarrhea a day. Stool was brown at first but now is gotten more yellow in color. Within the last 24 hours she started developing right-sided abdominal pain, nausea and vomiting. Symptoms worsen after she tries to eat or drink anything. She rates her pain currently a 7 out of 10. Pain is located in the right side of her abdomen and radiates to right side of back. Endorses mouth feeling dry and dehydrated. Denies any fevers, dysuria or hematuria. Associated Symptoms: Reports diarrhea, nausea and vomiting; Denies chills, constipation, dysuria, fever(s), hematochezia and hematuria Review of Systems Const: Denies: fever(s), chills or fatigue Eyes: Denies: change in vision or eye discomfort ENMT: Denies: throat pain, odynophagia, nasal discharge or nasal congestion Card: Denies: chest pain, palpitations, edema, swelling of feet/ankles, dyspnea on exertion or orthopnea Resp: Denies: dyspnea, productive cough or non-productive cough GI: Reports: abdominal pain, nausea, vomiting and diarrhea; Denies: constipation or hematochezia : Denies: flank pain, dysuria or hematuria Musc: Denies: neck pain, back pain or extremity swelling Skin/Breast: Denies: rash or new lesions Neuro: Denies: headache(s), numbness in extremities or weakness in extremities PFS ED PFSH: Medical History Adverse effect of COVID-19 vaccine Cerebral palsy Brain injury at Chronic migraine without aura, intractable, with status migrainosus Foot anomaly, congenital Hypertension No pertinent past medical history negx: dm,thyroid,dvt/pe PCP: [facility] Surgical History History of back surgery at age 13 Hx of release of tendon multiple, most recently was in 2019 S/P matrixectomy of toe Family History Grandmother Diabetes Maternal Hypertension Maternal Stroke Maternal Grandfather Diabetes Maternal Heart disease Paternal Mother Hypertension Denies family history of Colon cancer Ovarian cancer Hypercholesteremia Breast cancer Uterine cancer Thyroid disease Physical Exam Const: COMMON NORMALS: no acute distress, patient oriented x3 and alert GENERAL APPEARANCE: cooperative HENMT: COMMON NORMALS: normocephalic HEAD & SCALP: normocephalic MOUTH: moist mucous membranes abnormal Details: parched THROAT: posterior oropharynx normal and uvula midline Neck/C-Spine: COMMON NORMALS: supple GENERAL: Yes normal visual inspection Resp: COMMON NORMALS: normal respiratory effort, No retractions, No use of ac cessory muscles and clear to auscultation bilaterally AUSCULTATION: clear to auscultation bilaterally Cardio: COMMON NORMALS: regular rate, regular rhythm, S1 normal heart sound present, S2 normal heart sound present, No gallops present (Cardio), No clicks present (Cardio), No murmurs present (Cardio) and Peripheral pulses 2+ throughout RATE: regular rate RHYTHM: regular rhythm HEART SOUNDS: S1 normal heart sound present and S2 normal heart sound present PERIPHERAL PULSES: Peripheral pulses 2+ throughout GI: COMMON NORMALS: Normal to inspection, nondistended, normoactive bowel sounds present, Soft to palpation and no masses PALPATION: Yes Soft to palpation and Yes Tenderness to palpation present (GI) Details: RLQ and RUQ : COMMON NORMALS: Yes no CVA tenderness BLADDER/KIDNEY EXAM: Yes no CVA tenderness Back/Pelvis: COMMON NORMALS: no CVA tenderness Extremity: COMMON NORMALS: normal to inspection Neuro: COMMON NORMALS: patient oriented x3 SENSORIUM/ORIENTATION: Yes alert GAIT: Yes Normal gait present Skin: GENERAL SKIN EXAM: dry skin Course Vital Signs: Vital signs: Vital Signs Temperature 97.4 F L 09/25/22 21:00 Pulse Rate 82 09/26/22 01:25 Respiratory Rate 16 09/26/22 01:25 Blood Pressure 115/63 09/26/22 01:25 Pulse Oximetry 99 09/26/22 01:25 Oxygen Delivery Me thod Room Air 09/26/22 01:25 MDM - Abdominal Pain Medical Decision Making Patient is a 21-year-old female comes to the ED via EMS with abdominal pain, nausea/vomiting/diarrhea. Patient was given a dose of morphine and Zofran while in ambulance. Past medical history of GERD and cerebral palsy. Symptoms started approximately a week ago with diarrhea and states she has been having approximately 5-7 episodes of diarrhea a day. Stool was brown at first but now is gotten more yellow in color. Within the last 24 hours she started developing right-sided abdominal pain, nausea and vomiting. Symptoms worsen after she trie s to eat or drink anything. She rates her pain currently a 7 out of 10. Pain is located in the right side of her abdomen and radiates to right side of back. Endorses mouth feeling dry and dehydrated. Denies any fevers, dysuria or hematuria. Vital stable. Patient appears nontoxic in no acute distress or pain. She has some generalized right sided abdominal tenderness but rest of exam is benign. Labs are all unremarkable. CT of abdomen pelvis shows no acute findings. Patient was given 1 L of IV fluids, pain meds and nausea meds and her symptoms did improve. She was stable for discharge home symptoms likely due to viral gastroenteritis. She was sent home with a prescription for pain med, nausea med and some dicyclomine. Told to follow-up with her PCP in the next week for reevaluation. Return ED precautions given. Patient understood and agreed with plan. Lab Data I reviewed the patient's lab results. 09/25/22 21:09 09/25/22 21:09 Labs/Radiology: Radiology Impressions Abdomen/Pelvis CT 09/26/22 00:24 IMPRESSION: Negative for acute abdominopelvic pathology. Laboratory Results WBC 12.3 10^3/uL (4.5-13.0) 09/25/22 21:09 RBC 5.16 10^6/uL (4.1-5.3) 09/25/22 21:09 Hgb 15.5 g/dL (11.5-15.3) H 09/25/22 21:09 Hct 45.6 % (37.0-47.0) 09/25/22 21:09 MCV 88.4 fl (81-99) 09/25/22 21:09 MCH 30.0 pg (28.0-34.0) 09/25/22 21:09 MCHC 34.0 g/dL (30.0-36.0) 09/25/22 21:09 RDW 12.0 % (12.1-15.1) L 09/25/22 21:09 Plt Count 465 10^3/cmm (130-400) H 09/25/22 21:09 MPV 8.7 fL (7.4-10.4) 09/25/22 21:09 Neut % (Auto) 61.4 % 09/25/22 21:09 Lymph % (Auto) 30.1 % 09/25/22 21:09 [place] % (Auto) 6.7 % 09/25/22 21:09 Eos % (Auto) 0.9 % 09/25/22 21:09 Baso % (Auto) 0.7 % 09/25/22 21:09 Neut # (Auto) 7.54 10^3/uL (1.8-8.0) 09/25/22 21:09 Lymph # (Auto) 3.7 10^3/uL (1.5-6.5) 09/25/22 21:09 [place]erry # (Auto) 0.8 10^3/uL (0.2-0.9) 09/25/22 21:09 Eos # (Auto) 0.1 10^3/uL (0.0-0.8) 09/25/22 21:09 Baso # (Auto) 0.1 10^3/uL (0.0-0.1) 09/25/22 21:09 Nucleated RBC % (auto) 0 % 09/25/22 21:09 Nucleated RBCs # 0.0 /100WBC 09/25/22 21:09 Sodium 140 mmol/L (136-145) 09/25/22 21:09 Potassium 3.6 mmol/L (3.5-5.1) 09/25/22 21:09 Chloride 103 mmol/L (98-107) 09/25/22 21:09 Carbon Dioxide 23 mmol/L (22-29) 09/25/22 21:09 Anion Gap 17.6 (5-19) 09/25/22 21:09 BUN 8 mg/dL (6-20) 09/25/22 21:09 Creatinine 0.5 mg/dL (0.5-0.9) 04/12/23 21:09 GFR Calculation 157.3 mL/min (90-130) H 09/25/22 21:09 Glucose 98 mg/dL (65-115) 09/25/22 21:09 Calculated Osmolality 288 mOsm/kg (285-295) 09/25/22 21:09 Calcium 9.4 mg/dL (8.5-10.5) 09/25/22 21:09 Total Bilirubin 1.3 mg/dL (0.15-1.2) H 09/25/22 21:09 AST 46 U/L (0-32) H 09/25/22 21:09 ALT 44 U/L (0-33) H 09/25/22 21:09 Alkaline Phosphatase 96 U/L (35-105) 09/25/22 21:09 Total Protein 8.5 g/dL (6.6-8.7) 09/25/22 21:09 Albumin 4.7 g/dL (3.5-5.2) 09/25/22 21:09 Globulin 3.8 g/dL (1.3-4.6) 09/25/22 21:09 Lipase 27 U/L (13-60) 09/25/22 21:09 HCG, Qual Negative (Negative) 09/25/22 21:09 Urine Color Dark yellow (Yellow) 09/26/22 01:26 Urine Appearance Cloudy (CLEAR) A 09/26/22 01:26 Urine pH 5 (5-7) 09/26/22 01:26 Ur Specific [place] 1.030 (1.005-1.030) 09/26/22 01:26 Urine Protein Trace (Negative) 09/26/22 01:26 Urine Glucose (UA) Norm (Normal) 09/26/22 01:26 Urine Ketones 3+ (Negative) H 09/26/22 01:26 Urine Blood 2+ (Negative) H 09/26/22 01:26 Urine Nitrate Negative (Negative) 09/26/22 01:26 Urine Bilirubin Neg (Negative) 09/26/22 01:26 Urine Urobilinogen 1 mg/dL (Negative) H 09/26/22 01:26 Ur Leukocyte Esterase Negative (Negative) 09/26/22 01:26 Urine RBC 0-4 /hpf (0-2) H 09/26/22 01:26 Urine WBC None /hpf (0-5) 09/26/22 01:26 Ur Squamous Epith Cells 5-10 /hpf (0-5) H 09/26/22 01:26 Amorphous Sediment Not Reportable 09/26/22 01:26 Urine Bacteria 1+ /hpf (NONE) H 09/26/22 01:26 Urine Mucus 2+ /hpf 09/26/22 01:26 Discharge Plan Discharge Patient Disposition: Home Clinical Impression: Viral gastroenteritis Condition: Stable Prescriptions: New dicyclomine 20 mg tablet 20 mg PO QID PRN (Reason: Abdominal cramping and diarrhea) Qty: 20 0RF ondansetron 4 mg tablet,disintegrating 4 mg PO Q8H PRN (Reason: nausea and vomiting) Qty: 20 0RF No Action desvenlafaxine 50 mg tablet extended release 24 hr 100 mg PO DAILY cetirizine 10 mg capsule 10 mg PO QDAY tizanidine 4 mg capsule 4 mg PO Q8H PRN (Reason: Muscle Spasm) diazepam [Valium] 10 mg tablet 10 mg PO .PRN PRN (Reason: anxiety) 90 Days Qty: 7 2RF Rx Instructions: As needed for Botox Mirena 20 mcg/24 hours (6 yrs) 52 mg intrauterine device 20 mcg intrauterine DIRECTED multivitamin [One-A-Day Essential] Tablet 1 tab PO DAILY fluticasone propionate [Children's Flonase Allergy Rlf] 50 mcg/actuation spray,suspension 1 spray intranasal BID Rx Instructions: administer into each nostril imipramine HCl 10 mg tablet 50 mg PO .at bedtime (DME) [place] [facility] [place]ructions .Route Qty: 2 0RF Rx Instructions: As directed propranolol 40 mg tablet See Rx Instructions .ROUTE .COMPLEX Qty: 60 2RF Dose Instruction: TAKE ONE HALF (1/2) TABLET BY MOUTH TWICE A DAY Rx Instructions: TAKE ONE HALF (1/2) TABLET BY MOUTH TWICE A DAY sumatriptan succinate [Imitrex] 100 mg tablet 100 mg PO Q2H PRN (Reason: migraines) pantoprazole 40 mg tablet,delayed release (DR/EC) 40 mg PO BID Qty: 90 8RF Discharge Orders: Discharge ED (Routine); Ordered 09/26/22 Ordered By: Abilio Beltran Referrals: Magnus Jiang FNP [Primary Care Provider] - Discharge Diet: Advance as tolerated and Clear Liquid Discharge Activity: Increase activity as tolerated Patient Instructions: Gastroenteritis (ED) Activity Restrictions/Additional Instructions: Follow-up with medical provider as directed in the next 5 to 7 days for reev aluation. Drink plenty fluids and stay hydrated. Take medications as prescribed. Return to the ER or your medical provider if condition worsens. Please read and understand discharge instructions. Thank you for choosing [facility] for your healthcare needs today. Please realize this is an emergency room and that we are providing you with a medical screening exam and this may not be complete and all inclusive of all the testing and or work up that you may need to determine your ailment or severity of your illness. It is very important that you follow up as instructed or that you return to the Emergency Department should you have concerns or if your condition changes or worsens in any way. Stand Alone Forms: Work/School Release Coding Level of Care Code ED Regulator Tester for Shelby Barron
[2022-09-26 00:44] LABS: Basophils # 0.1 10^3/uL (0.0-0.1); Basophils % 0.7 %; Eosinophils # 0.1 10^3/uL (0.0-0.8); Eosinophils % 0.9 %; Hematocrit 45.6 % (37.0-47.0); Hemoglobin 15.5 g/dL (11.5-15.3); Lymphocytes # 3.7 10^3/uL (1.5-6.5); Lymphocytes % 30.1 %; Mean Corpuscular Volume 88.4 fl (81-99); Mean Platelet Volume 8.7 fL (7.4-10.4); Monocytes # 0.8 10^3/uL (0.2-0.9); Monocytes % 6.7 %; Neutrophils # 7.54 10^3/uL (1.8-8.0); Neutrophils % 61.4 %; Nucleated Red Blood Cells % 0 %; Platelet Count 465 10^3/cmm (130-400); Red Blood Count 5.16 10^6/uL (4.1-5.3); White Blood Count 12.3 10^3/uL (4.5-13.0)
[2022-09-26 00:50] LABS: HCG, Serum Qual Negative (Negative)
[2022-09-26 00:57] LABS: Alanine Aminotransferase 44 U/L (0-33); Albumin Level 4.7 g/dL (3.5-5.2); Alkaline Phosphatase 96 U/L (35-105); Anion Gap 17.6 (5-19); Aspartate Amino Transferase 46 U/L (0-32); Blood Urea Nitrogen 8 mg/dL (6-20); Calcium 9.4 mg/dL (8.5-10.5); Carbon Dioxide 23 mmol/L (22-29); Chloride 103 mmol/L (98-107); Globulin 3.8 g/dL (1.3-4.6); Glomerular Filtration Rate 157.3 mL/min (90-130); Glucose 98 mg/dL (65-115); Lipase 27 U/L (13-60); Osmolality Calculated 288 mOsm/kg (285-295); Potassium 3.6 mmol/L (3.5-5.1); Sodium 140 mmol/L (136-145); Total Bilirubin 1.3 mg/dL (0.15-1.2); Total Protein 8.5 g/dL (6.6-8.7)
[2022-09-26] MEDS: sodium chloride 0.9% 1,000 ML 999 ML IV (01:03)
[2022-09-26 01:06] VITALS: RESP 18; O2SAT 95
[2022-09-26] MEDS: morphine 4 mg/mL SDV 1 mL IVP (01:06)
[2022-09-26] MEDS: metoclopramide 5 mg/mL SDV 2 mL 10 MG IVP (01:06)
[2022-09-26 01:25] VITALS: BP 115/63; PULSE 82; RESP 16; O2SAT 99
[2022-09-26] MEDS: iohexol 350 mg/mL 500 mL Btl (per mL) IV (01:26)
[2022-09-26 01:49] LABS: Add Urine Microscopic? YES; Bilirubin Urine Neg (Negative); Blood Urine 2+ (Negative); Glucose Urine UA Norm (Normal); Ketones Urine 3+ (Negative); Leukocyte Esterase Urine Negative (Negative); Nitrate Urine Negative (Negative); Protein Urine Trace (Negative); RBC Urine 0-4 /hpf (0-2); Urine Appearance Cloudy (CLEAR); Urine Color Dark Yellow (Yellow); Urobilinogen Urine 1 mg/dL (Negative); pH Urine 5 (5-7)
[2022-09-26 01:50] LABS: Add Urine Culture? No; Bacteria Urine 1+ /hpf; Mucus Urine 2+ /hpf
[2022-09-26] MEDS: ondansetron 2 mg/ML SDV 2 mL 4 MG IVP (02:54)
[2022-09-26] MEDS: morphine 4 mg/mL SDV 1 mL 2 MG IVP (02:54)
[2022-09-26] MEDS: HYDROcodone-acetaminophen 7.5-325 mg Tablet 1 TAB PO (03:08)
[2022-09-26 03:09] VITALS: PULSE 84; RESP 18; O2SAT 99
== END 2022-09-26 03:09 | disposition home or self-care (01) ==
PROVIDERS: Emergency Provider Physician Assistant; PCP Nurse Practitioner
DX: K52.9 Noninfective gastroenteritis and colitis, unspecified (principal)
CPT/HCPCS: 74177; 80053; 81001; 83690; 84703; 85025; 96374; 96375; 96376; 99285; J2270; J2405; J2765; J7030; Q9967

== ENCOUNTER → 2022-12-26 09:40 | Outpatient (BNVA) | payer MEDICARE, BC, MEDICAID, SELFPAY | PROVIDERS: PCP Nurse Practitioner; Visit Provider Specialist | DX: G43.711 Chronic migraine without aura, intractable, with status migrainosus (principal) | CPT/HCPCS: 64615; J1030; J3490 ==

== ENCOUNTER → 2023-03-27 09:59 | Outpatient (BNVA) | payer MEDICARE, MEDICAID, SELFPAY | PROVIDERS: PCP Nurse Practitioner; Visit Provider Specialist | DX: M79.7 Fibromyalgia (principal); G43.711 Chronic migraine without aura, intractable, with status migrainosus | CPT/HCPCS: 64615; 99214; J0585 ==

== ENCOUNTER → 2023-07-03 11:20 | Outpatient (BNVA) | payer MEDICARE, MEDICAID, SELFPAY | PROVIDERS: PCP Nurse Practitioner; Visit Provider Specialist | DX: G43.711 Chronic migraine without aura, intractable, with status migrainosus (principal); G80.1 Spastic diplegic cerebral palsy; M54.50 Low back pain, unspecified | CPT/HCPCS: 99212; 64615 ==

== ENCOUNTER → 2023-10-09 13:53 | Outpatient (BNVA) | payer MEDICARE, MEDICAID, SELFPAY | PROVIDERS: PCP Nurse Practitioner; Visit Provider Specialist | DX: G43.711 Chronic migraine without aura, intractable, with status migrainosus (principal); G80.1 Spastic diplegic cerebral palsy | CPT/HCPCS: 64615 ==

== ENCOUNTER → 2024-01-08 13:40 | Outpatient (BNVA) | payer MEDICARE, MEDICAID, SELFPAY | PROVIDERS: PCP Nurse Practitioner; Visit Provider Specialist | DX: G43.711 Chronic migraine without aura, intractable, with status migrainosus (principal); G80.1 Spastic diplegic cerebral palsy | CPT/HCPCS: 64615 ==

== ENCOUNTER → 2024-04-02 13:58 | Outpatient (BNVA) | payer MEDICARE, MEDICAID, SELFPAY | PROVIDERS: PCP Nurse Practitioner; Visit Provider Specialist | DX: G43.711 Chronic migraine without aura, intractable, with status migrainosus (principal); G80.1 Spastic diplegic cerebral palsy; G25.0 Essential tremor; M79.7 Fibromyalgia | CPT/HCPCS: 64615; 99214; 99215 ==

== ENCOUNTER 2024-04-28 12:43 | Emergency (ER) | payer MEDICARE, SELFPAY ==
[2024-04-28] VITALS (10 sets, daily range): BP systolic 140–160; BP diastolic 72–109; PULSE 96–134; RESP 11–18; TEMP 36.7; O2SAT 96–100; BMI 33.8
--- NOTE | 2024-04-28 13:07 | ED_ITS ---
HPI - Abdominal Pain 2 General: Chief Complaint: Abdominal Pain Stated Complaint: abd pain, NV, poss fever Time Seen by Provider: 04/28/24 12:52 History of Present Illness: 21-year-old female presents emergency ro om with complaint of left lower quadrant pain this been going on for several days. She is very anxious and tachycardic on arrival she is complaining of some abdominal pain and nausea. No hematemesis or coffee-ground emesis. Associated Symptoms: Reports nausea and vomiting; Denies chills, dysuria and fever(s) Related Data Home Medications Medication Instructions Recorded Confirmed levonorgestrel 21 mcg/24 hr (up to 20 mcg intrauterine DIRECTED 12/27/20 04/28/24 8 years) 52 mg intrauterine device (Mirena) imipramine HCl 10 mg tablet 50 mg PO .at bedtime 11/27/21 04/28/24 desvenlafaxine 50 mg 100 mg PO DAILY 04/19/22 04/28/24 tablet,extended release 24 hr multivitamin (One-A-Day Essential 1 tab PO DAILY 04/19/22 04/28/24 tablet) buspirone 5 mg tablet 5 mg PO TID 07/03/23 04/28/24 diclofenac potassium 50 mg tablet 50 mg PO TID PRN Pain 04/02/24 04/28/24 gabapentin 300 mg capsule 300 mg PO BID 04/02/24 04/28/24 dicyclomine 10 mg capsule 10 mg PO TID 04/28/24 04/28/24 Previous Rx's Medication Instructions Recorded pantoprazole 40 mg tablet,delayed 40 mg PO BID #90 tabs 01/21/22 release arm brace #2 ea 06/27/22 onabotulinumtoxinA 100 unit 155 unit IM ONCE #2 ea 03/09/24 solution for injection (Botox) diazepam 10 mg tablet (Valium) 10 mg PO .PRN PRN anxiety 3 months 04/08/24 #7 tabs propranolol 40 mg tablet See Rx Instructions .Route 04/08/24 .COMPLEX #60 tabs sumatriptan succinate 100 mg 100 mg PO Q2H PRN migraines #30 04/08/24 tablet (Imitrex) tabs tizanidine 4 mg capsule 8 mg (2 x 4 mg) PO Q8H PRN Muscle 04/08/24 Spasm #360 caps cefdinir 300 mg capsule 300 mg PO BID 10 days #14 caps 04/28/24 hydrocodone 5 mg-acetaminophen 325 1 tab PO Q6H PRN pain #10 tabs 04/28/24 mg tablet promethazine 25 mg tablet 25 mg PO Q6H PRN nausea and 04/28/24 vomiting #20 tabs Allergies Allergy/AdvReac Type Severity Reaction Status Date / Time Penicillins Allergy rash Verified 04/02/24 14:08 Review of Systems 2 Const: Denies: fever(s) or chills Card: Denies: chest pain Resp: Denies: dyspnea GI: Reports: abdominal pain, nausea and vomiting : Denies: dysuria, urinary frequency or urinary urgency Musc: Denies: neck pain or back pain Skin/Breast: Denies: rash PFSH ED 2 PFSH: Medical History Hypertension No pertinent past medical history negx: dm,thyroid,dvt/pe PCP: [facility] Adverse effect of COVID-19 vaccine Cerebral palsy Brain injury at Chronic migraine without aura, intractable, with status migrainosus Foot anomaly, congenital Surgical History History of back surgery at age 13 Hx of release of tendon multiple, most recently was in 2019 S/P matrixectomy of toe Family History Grandmother Diabetes Maternal Hypertension Maternal Stroke Maternal Grandfather Diabetes Maternal Heart disease Paternal Mother Hypertension Denies family history of Colon cancer Ovarian cancer Hypercholesteremia Breast cancer Uterine cancer Thyroid disease Social History Smoking and tobacco/nicotine status: never used tobacco/nicotine Substance/Drug Use: never Do you think of yourself as: Straight/Heterosexual Physical Exam 2 Const: GENERAL APPEARANCE: cooperative ORIENTATION/CONSCIOUSNESS: Yes awake, Yes oriented to person, Yes oriented to place and Yes oriented to time HENMT: COMMON NORMALS: normocephalic, atraumatic and hearing grossly normal bilaterally HEAD & SCALP: normocephalic and atraumatic Resp: COMMON NORMALS: normal respiratory effort, No retractions, No use of accessory muscles and clear to auscultation bilaterally AUSCULTATION: clear to auscultation bilaterally Cardio: COMMON NORMALS: regular rate, regular rhythm and No murmurs present (Cardio) RATE: regular rate RHYTHM: regular rhythm GI: COMMON NORMALS: Soft to palpation and No hepatosplenomegaly present A USCULTATION: Yes normoactive bowel sounds PALPATION: Yes Soft to palpation, No Tenderness to palpation present (GI), No Guarding due to palpation present (GI) and Yes No hepatosplenomegaly present Extremity: COMMON NORMALS: normal to inspection, capillary refill normal, no clubbing, cyanosis or edema, no calf tenderness and no pedal edema Neuro: SENSORIUM/ORIENTATION: Yes oriented to person, Yes oriented to place and Yes oriented to time Skin: COMMON NORMALS: no rashes or lesions noted GENERAL SKIN EXAM: no rashes or lesions noted Course 2 Vital Signs: Vital signs: Vital Signs Temperature 98.0 F 04/28/24 12:47 Pulse Rate 120 H 04/28/24 19:23 Respiratory Rate 16 04/28/24 19:23 Blood Pressure 140/82 04/28/24 19:23 Pulse Oximetry 96 04/28/24 19:23 Oxygen Delivery Me thod Room Air 04/28/24 18:04 MDM - Abdominal Pain Medical Decision Making CT of the abdomen did not show any acute findings. There is a 5.5 x 4.7 cm ovarian cyst which was further evaluated by ultrasound. No fever. No evidence ovarian torsion there is good blood flow to the ovary. White count is markedly elevated and she is tachycardic I think this is from demargination and abdominal discomfort she is improved by the time we discharged the patient. Repeat abdominal exam did not show any acute abdominal findings no peritoneal signs. Discharged home on oral antibiotics. She was given IV fluids here as well. Medical Records I reviewed the patient's medical records. Lab Data I reviewed the patient's lab results. 04/28/24 13:18 04/28/24 13:18 Labs/Radiology: Radiology Impressions Abdomen/Pelvis CT 04/28/24 13:34 IMPRESSION: 1. 5.5 x 4.7 cm right ovarian cyst. 2. Stable smaller right kidney with cortical scarring. Pelvic/Transvag US 04/28/24 16:54 IMPRESSION: 1. No evidence of ovarian torsion. 2. 5.7 x 3.6 x 5.5 cm right ovarian cyst, recommend follow-up in 2-6 months to confirm resolution. Laboratory Results WBC 21.70 10^3/uL (3.29-11.43) H 04/28/24 13:18 RBC 5.11 10^6/uL (3.85-5.65) 04/28/24 13:18 Hgb 16.20 g/dL (11.27-16.99) 04/28/24 13:18 Hct 46.4 % (36-47) 04/28/24 13:18 MCV 90.8 fl (85-98) 04/28/24 13:18 MCH 31.7 pg (27-33) 04/28/24 13:18 MCHC 34.9 g/dL (30-55) 04/28/24 13:18 RDW 11.9 % (12.1-15.1) L 04/28/24 13:18 Plt Count 473 10^3/cmm (157-399) H 04/28/24 13:18 MPV 8.3 fL (7.4-10.4) 04/28/24 13:18 Neut % (Auto) 80.2 % 04/28/24 13:18 Lymph % (Auto) 13.3 % 04/28/24 13:18 [place] % (Auto) 5.5 % 04/28/24 13:18 Eos % (Auto) 0.1 % 04/28/24 13:18 Baso % (Auto) 0.3 % 04/28/24 13:18 Neut # (Auto) 17.40 10^3/uL (1.8-7.7) H 04/28/24 13:18 Lymph # (Auto) 2.9 10^3/uL (0.8-4.8) 04/28/24 13:18 [place] # (Auto) 1.2 10^3/uL (0.2-0.9) H 04/28/24 13:18 Eos # (Auto) 0.0 10^3/uL (0.0-0.8) 04/28/24 13:18 Baso # (Auto) 0.1 10^3/uL (0.0-0.1) 04/28/24 13:18 Nucleated RBC % (auto) 0 % 04/28/24 13:18 Nucleated RBCs # 0.0 /100WBC 04/28/24 13:18 Sodium 136 mmol/L (136-145) 04/28/24 13:18 Potassium 3.3 mmol/L (3.5-5.1) L 04/28/24 13:18 Chloride 99 mmol/L (98-107) 04/28/24 13:18 Carbon Dioxide 21 mmol/L (22-29) L 04/28/24 13:18 Anion Gap 19.3 (5-19) H 04/28/24 13:18 BUN 7 mg/dL (6-20) 04/28/24 13:18 Creatinine 0.5 mg/dL (0.5-0.9) 04/28/24 13:18 GFR Calculation 154.3 mL/min (90-130) H 04/28/24 13:18 Glucose 107 mg/dL (65-115) 04/28/24 13:18 Calculated Osmolality 280 mOsm/kg (285-295) L 04/28/24 13:18 Lactic Acid 1.9 mmol/L (0.5-2.2) 04/28/24 13:18 Calcium 9.6 mg/dL (8.5-10.5) 04/28/24 13:18 Magnesium 1.8 mg/dL (1.7-2.3) 04/28/24 13:18 Total Bilirubin 0.9 mg/dL (0.15-1.2) 04/28/24 13:18 AST 21 U/L (0-32) 04/28/24 13:18 ALT 27 U/L (0-33) 04/28/24 13:18 Alkaline Phosphatase 86 U/L (35-105) 04/28/24 13:18 Total Protein 8.9 g/dL (6.6-8.7) H 04/28/24 13:18 Albumin 4.6 g/dL (3.5-5.2) 04/28/24 13:18 Globulin 4.3 g/dL (1.3-4.6) 04/28/24 13:18 Lipase 33 U/L (13-60) 04/28/24 13:18 HCG, Qual Negative (Negative) 04/28/24 13:18 Urine Color Yellow (Yellow) 04/28/24 13:10 Urine Appearance Clear (CLEAR) 04/28/24 13:10 Urine pH 6.5 (5-7) 04/28/24 13:10 Ur Specific [place] 1.016 (1.005-1.030) 04/28/24 13:10 Urine Protein 1+ (Negative) A 04/28/24 13:10 Urine Glucose (UA) Negative (Normal) 04/28/24 13:10 Urine Ketones 3+ (Negative) H 04/28/24 13:10 Urine Blood Negative (Negative) 04/28/24 13:10 Urine Nitrate Negative (Negative) 04/28/24 13:10 Urine Bilirubin Negative (Negative) 04/28/24 13:10 Urine Urobilinogen 1.0 mg/dL (Negative) 04/28/24 13:10 Ur Leukocyte Esterase Trace (Negative) A 04/28/24 13:10 Urine RBC 3-5 /hpf (0-2) 04/28/24 13:10 Urine WBC 11-20 /hpf (0-5) H 04/28/24 13:10 Ur Squamous Epith Cells 11-20 /hpf (0-5) 04/28/24 13:10 Amorphous Sediment Not Reportable 04/28/24 13:10 Urine Bacteria 2+ /hpf (NONE) H 04/28/24 13:10 Hyaline Casts 0.40 /lpf 04/28/24 13:10 All radiology interpretation(s) finalized by discharge Discharge Plan Discharge Patient Disposition: Home Clinical Impression: Cyst of right ovary, Cystitis Condition: Stable Prescriptions: New cefdinir 300 mg capsule 300 mg PO BID 10 Days Qty: 14 0RF hydrocodone-acetaminophen 5-325 mg tablet 1 tab PO Q6H PRN (Reason: pain) Qty: 10 0RF promethazine 25 mg tablet 25 mg PO Q6H PRN (Reason: nausea and vomiting) Qty: 20 0RF No Action desvenlafaxine 50 mg tablet extended release 24 hr 100 mg PO DAILY Mirena 20 mcg/24 hours (6 yrs) 52 mg intrauterine device 20 mcg intrauterine DIRECTED multivitamin [One-A-Day Essential] Tablet 1 tab PO DAILY diclofenac potassium 50 mg tablet 50 mg PO TID PRN (Reason: Pain) gabapentin 300 mg capsule 300 mg PO BID imipramine HCl 10 mg tablet 50 mg PO .at bedtime (DME) arm brace Misc See Rx Instructions .Route Qty: 2 0RF Rx Instructions: As directed buspirone 5 mg tablet 5 mg PO TID diazepam [Valium] 10 mg tablet 10 mg PO .PRN PRN (Reason: anxiety) 90 Days Qty: 7 2RF Rx Instructions: As needed for Botox propranolol 40 mg tablet See Rx Instructions .ROUTE .COMPLEX Qty: 60 2RF Dose Instruction: TAKE 1/2 TABLET BY MOUTH TWICE DAILY Rx Instructions: TAKE 1/2 TABLET BY MOUTH TWICE DAILY sumatriptan succinate [Imitrex] 100 mg tablet 100 mg PO Q2H PRN (Reason: migraines) Qty: 30 3RF tizanidine 4 mg capsule 8 mg PO Q8H PRN (Reason: Muscle Spasm) Qty: 360 3RF Botox 100 unit recon soln 155 unit IM ONCE Qty: 2 0RF dicyclomine 10 mg capsule 10 mg PO TID pantoprazole 40 mg tablet,delayed release (DR/EC) 40 mg PO BID Qty: 90 8RF Discharge Orders: Discharge ED (Routine); Ordered 04/28/24 Ordered By: Alexandre Sarabia Referrals: Magnus Jiang, CHILD PROTECTIVE INVESTIGATOR [Primary Care Provider] - Discharge Diet: Clear Liquid Discharge Activity: Increase activity as tolerated Patient Instructions: Opioid Safety, Pain Management Activity Restrictions/Additional Instructions: Thank you for choosing [facility] for your healthcare needs today. It is very important that you follow up as instructed or that you return to the Emergency Department should you have concerns or if your condition changes or worsens in any way. You are seen in the emergency room with complaint of pelvic abdominal pain. CT showed a right ovarian cyst there is no evidence of any acute appendicitis. There was evidence of a mild bladder infection for which we gave you antibiotics 1 pill twice a day for 7 days. Recommend you increase fluid intake and stick with a clear liquid diet for the next 24 to 48 hours. We also given promethazine to use as needed for nausea and vomiting and hydrocodone to use for pain if you symptoms change or worsen return to the emergency room. Coding Level of Care Code ED Dehydration Unit Operator for Shelby Barron
[2024-04-28 13:27] LABS: Basophils # 0.1 10^3/uL (0.0-0.1); Basophils % 0.3 %; Eosinophils % 0.1 %; Hematocrit 46.4 % (36-47); Lymphocytes # 2.9 10^3/uL (0.8-4.8); Lymphocytes % 13.3 %; Mean Corpuscular HGB Conc 34.9 g/dL (30-55); Mean Corpuscular Hemoglobin 31.7 pg (27-33); Mean Corpuscular Volume 90.8 fl (85-98); Mean Platelet Volume 8.3 fL (7.4-10.4); Monocytes # 1.2 10^3/uL (0.2-0.9); Monocytes % 5.5 %; Neutrophils % 80.2 %; Nucleated Red Blood Cells % 0 %; Platelet Count 473 10^3/cmm (157-399); Red Blood Count 5.11 10^6/uL (3.85-5.65); Red Cell Distribution Width 11.9 % (12.1-15.1)
[2024-04-28 13:31] LABS: Bilirubin Urine Negative (Negative); Blood Urine Negative (Negative); Glucose Urine UA Negative (Normal); Ketones Urine 3+ (Negative); Leukocyte Esterase Urine Trace (Negative); Nitrate Urine Negative (Negative); Protein Urine 1+ (Negative); Specific Gravity, Urine 1.016 (1.005-1.030); Urine Appearance Clear (CLEAR); Urine Color Yellow (Yellow); pH Urine 6.5 (5-7)
--- NOTE | 2024-04-28 13:34 | CTR_ITS ---
PROCEDURE INFORMATION: Exam: CT Abdomen And Pelvis With Contrast Exam date and time: 04/28/2024 4:08 PM Age: 23 years old Clinical indication: Abdominal pain; Additional info: Abd pain TECHNIQUE: Imaging protocol: Computed tomography of the abdomen and pelvis with contrast. Radiation optimization: All CT scans at this facility use at least one of these dose optimization techniques: automated exposure control; mA and/or kV adjustment per patient size (includes targeted exams where dose is matched to clinical indication); or iterative reconstruction. Contrast material: OMNI 350; Contrast volume: 100 ml; Contrast route: INTRAVENOUS (IV); COMPARISON: CT abdomen pelvis w con* [id number] 09/26/2022 1:23 AM RADIATION DOSE METRICS: Total DLP (mGy-cm): 731.05 FINDINGS: Lungs: Lung bases are unremarkable. Liver: The liver is unremarkable. Gallbladder and biliary ducts: No intrahepatic or extrahepatic biliary ductal dilatation. The gallbladder is unremarkable with no radioopaque stone. Pancreas: Pancreas is unremarkable. No ductal dilation or peripancreatic inflammation. Spleen: The spleen is unremarkable. Adrenal glands: Stable left adrenal calcification. Kidneys and ureters: Cortical scarring of a smaller right kidney. No hydronephrosis or nephrolithiasis. Stomach and bowel: The stomach is not fully distended. Small and large bowel are normal in caliber without evidence of obstruction. Appendix: Appendix is unremarkable. Intraperitoneal space: No free intraperitoneal air. No fluid collection. Vasculature: Origins of the celiac, SMA, NONA and renal arteries are patent. Lymph nodes: No pathologically enlarged lymph nodes (by short axis size criteria). Urinary bladder: Bladder is not fully distended. Reproductive: Appropriately positioned IUD in place. There is an 55 x 47 mm right adnexal cystic mass presumed to be an ovarian cyst. Bones/joints: No acute osseous abnormality. Stable 8 mm sclerotic focus in the anterior aspect of the left L5 vertebral body. Soft tissues: Unremarkable. CT/CT abdomen pelvis w con* [id number] IMPRESSION: 1. 5.5 x 4.7 cm right ovarian cyst. 2. Stable smaller right kidney with cortical scarring.
[2024-04-28 13:36] LABS: Add Urine Microscopic? YES; Bacteria Urine 2+ /hpf
[2024-04-28] MEDS: sodium chloride 0.9% 1,000 ML 999 ML IV ×2 (13:41→15:32)
[2024-04-28 13:47] LABS: Alanine Aminotransferase 27 U/L (0-33); Albumin Level 4.6 g/dL (3.5-5.2); Alkaline Phosphatase 86 U/L (35-105); Anion Gap 19.3 (5-19); Aspartate Amino Transferase 21 U/L (0-32); Blood Urea Nitrogen 7 mg/dL (6-20); Calcium 9.6 mg/dL (8.5-10.5); Carbon Dioxide 21 mmol/L (22-29); Chloride 99 mmol/L (98-107); Creatinine Clr Calc Pharmacy 170.3908; Globulin 4.3 g/dL (1.3-4.6); Glomerular Filtration Rate 154.3 mL/min (90-130); Glucose 107 mg/dL (65-115); Lipase 33 U/L (13-60); Osmolality Calculated 280 mOsm/kg (285-295); Potassium 3.3 mmol/L (3.5-5.1); Sodium 136 mmol/L (136-145); Total Bilirubin 0.9 mg/dL (0.15-1.2); Total Protein 8.9 g/dL (6.6-8.7)
--- NOTE | 2024-04-28 13:50 | PC.PHAR ---
patient hasnt been able to keep anything down so she hasnt taken any meds since pain started
[2024-04-28 13:55] LABS: HCG, Serum Qual Negative (Negative)
[2024-04-28 14:02] LABS: Lactic Sepsis W/Reflex 1.9 mmol/L (0.5-2.2)
[2024-04-28 14:17] LABS: Magnesium 1.8 mg/dL (1.7-2.3)
[2024-04-28] MEDS: ondansetron 2 mg/ML SDV 2 mL 4 MG IVP (14:25)
[2024-04-28] MEDS: morphine 4 mg/mL SDV 1 mL IVP ×2 (15:31→17:04)
[2024-04-28] MEDS: ketorolac 30 mg/mL INJ IVP (15:31)
[2024-04-28] MEDS: iohexol 350 mg/mL 500 mL Btl (per mL) IV (16:12)
--- NOTE | 2024-04-28 16:54 | USR_ITS ---
PROCEDURE INFORMATION: Exam: US Pelvis Transabdominal, Limited, and US Pelvis Transvaginal, Non-Obstetric Exam date and time: 04/28/2024 5:11 PM Age: 23 years old Clinical indication: Pelvic pain; Additional info: R ovarian cyst - eval blood flow TECHNIQUE: Imaging protocol: Real-time transabdominal and transvaginal pelvic ultrasound (non-obstetric) with image documentation. Transabdominal imaging is limited. Transvaginal imaging was used for better evaluation of the endometrium, adnexa, and/or cervix. COMPARISON: CT abdomen pelvis w con* [id number] 04/28/2024 4:08 PM FINDINGS: Uterus: Uterus measures 7.7 x 2.7 x 3.6 cm. Endometrial stripe is within normal limits. Appropriately positioned IUD in place. Right ovary/adnexa: Right ovary measures 6.9 x 6.1 x 4.7 cm. There is a 5.7 x 3.6 x 5.5 cm right ovarian cyst with low-level internal echoes, recommend follow-up in 2-6 months to confirm resolution. There is normal ovarian blood flow noted on color Doppler. Left ovary/adnexa: Left ovary measures 2.3 x 1.9 x 1.1 cm. There is normal ovarian blood flow noted on color Doppler. Urinary bladder: Urinary bladder is limited. Intraperitoneal space: There is a small amount of free fluid noted adjacent to the left cornua. US/US pelvis lmt w transvag IMPRESSION: 1. No evidence of ovarian torsion. 2. 5.7 x 3.6 x 5.5 cm right ovarian cyst, recommend follow-up in 2-6 months to confirm resolution.
[2024-04-28] MEDS: metoclopramide 5 mg/mL SDV 2 mL 10 MG IVP (17:05)
== END 2024-04-28 19:24 | disposition home or self-care (01) ==
PROVIDERS: Emergency Medicine; Family Medicine; Emergency Provider Emergency Medicine; PCP Nurse Practitioner
DX: N83.201 Unspecified ovarian cyst, right side (principal); N30.90 Cystitis, unspecified without hematuria; I10 Essential (primary) hypertension
CPT/HCPCS: 36415; 74177; 76830; 76857; 80053; 81001; 83605; 83690; 83735; 84703; 85025; 87040; 96361; 96374; 96375; 96376; 99285; J1885; J2270; J2405; J2765; J7030

== ENCOUNTER 2024-05-18 09:04 | Outpatient (CLI) | payer MEDICARE, SELFPAY ==
--- NOTE | 2024-05-18 09:07 | MR_ITS ---
WS: [id number] MRI LUMBAR SPINE NONCONTRAST HISTORY: G80.1 - Spastic diplegic cerebral palsy COMPARISON: 10/21/2018 TECHNIQUE: Sagittal and axial multisequence imaging is submitted. Mild motion artifact on several sequences. Normal lumbar alignment with no compression fractures or marrow edema. Disc spaces and vertebral body heights are well-preserved. Conus terminates normally at L1-2 disc level. Prior large bilateral laminectomy defects at L1-2. L1-L2: Normal. L2-L3: Normal. L3-L4: Mild facet arthritis and annular disc bulging. No stenosis. L4-L5: Mild annular disc bulging. Mild facet arthritis. No stenosis. L5-S1: Mild annular disc bulging. No stenosis. Normal paravertebral soft tissues. Mild atrophy of the LEFT kidney with cortical thinning. Similar to the prior study. MR/MR lumbar spine wo con* [id number] IMPRESSION: 1. Postoperative laminectomy defects at L1-2, stable. 2. No significant central or foraminal stenosis. 3. No disc protrusions.
--- NOTE | 2024-05-18 09:07 | MR_ITS ---
WS: [id number] MRI CERVICAL SPINE NONCONTRAST HISTORY: G80.1 - Spastic diplegic cerebral palsy COMPARISON: None available. Technique: Multiplanar, multisequence noncontrast imaging of the cervical spine. Normal cervical alignment with no compression fracture or significant disc space narrowing. Signal within the cervical cord is normal. Visualized posterior fossa is unremarkable. Craniocervical junction, C1 and C2 relationship, odontoid process and soft tissues are normal. C2-C3: Normal. C3-C4: Normal. C4-C5: Normal. C5-C6: Normal. C6-C7: Normal. C7-T1: Normal. Paraspinal soft tissue are normal. MR/MR cervical spin wo con* [id number] IMPRESSION: Normal MRI C-spine.
--- NOTE | 2024-05-18 09:07 | MR_ITS ---
WS: [id number] MRI THORACIC SPINE noncontrast HISTORY: G80.1 - Spastic diplegic cerebral palsy COMPARISON: None available. TECHNIQUE: Multiplanar sequences are performed in sagittal and axial planes. Normal thoracic alignment. Disc spaces and vertebral body heights are well-maintained. Signal within the cord is normal. No cord atrophy or enlargement. Conus tapers normally at L1-2. No cord syrinx. No central stenosis. T1-2: Normal. T2-3: Normal. T3-4: Normal. T4-5: Normal. T5-6: Normal. T6-7: Normal. T7-8: Normal. T8-9: Normal. T9-10: Normal. T10-11: Normal. T11-12: Normal. MR/MR thoracic spin wo con* [id number] IMPRESSION: Normal MRI thoracic spine.
== END 2024-05-18 09:05 | disposition home or self-care (01) ==
LOC: RAD 09:06
PROVIDERS: PCP Nurse Practitioner; Visit Provider Specialist
DX: G80.1 Spastic diplegic cerebral palsy (principal)
CPT/HCPCS: 72141; 72146; 72148

== ENCOUNTER 2024-06-19 14:27 | Emergency (ER) | payer MEDICARE, SELFPAY ==
[2024-06-19 14:52] VITALS: BP 150/120; PULSE 102; RESP 18; TEMP 36.9; O2SAT 96; BMI 33.0
[2024-06-19 15:28] LABS: Bilirubin Urine Negative (Negative); Blood Urine Negative (Negative); Glucose Urine UA Negative (Normal); Ketones Urine Negative (Negative); Leukocyte Esterase Urine Negative (Negative); Nitrate Urine Negative (Negative); Protein Urine Negative (Negative); Specific Gravity, Urine 1.005 (1.005-1.030); Urine Appearance Clear (CLEAR); Urine Color Yellow (Yellow); Urobilinogen Urine 0.2 mg/dL (Negative); pH Urine 6.5 (5-7)
[2024-06-19 15:31] LABS: Basophils # 0.1 10^3/uL (0.0-0.1); Basophils % 1.2 %; Eosinophils # 0.3 10^3/uL (0.0-0.8); Eosinophils % 2.7 %; Hematocrit 44.2 % (36-47); Lymphocytes # 3.8 10^3/uL (0.8-4.8); Lymphocytes % 38.8 %; Mean Corpuscular HGB Conc 33.7 g/dL (30-55); Mean Corpuscular Hemoglobin 30.7 pg (27-33); Mean Corpuscular Volume 90.9 fl (85-98); Mean Platelet Volume 8.3 fL (7.4-10.4); Monocytes # 0.8 10^3/uL (0.2-0.9); Monocytes % 7.7 %; Neutrophils # 4.88 10^3/uL (1.8-7.7); Neutrophils % 49.4 %; Nucleated Red Blood Cells % 0 %; Platelet Count 452 10^3/cmm (157-399); Red Blood Count 4.86 10^6/uL (3.85-5.65); Red Cell Distribution Width 11.9 % (12.1-15.1); White Blood Count 9.89 10^3/uL (3.29-11.43)
--- NOTE | 2024-06-19 15:31 | ED_ITS ---
HPI - Abdominal Pain 2 General: Chief Complaint: Abdominal Pain Stated Complaint: abdominal pain Time Seen by Provider: 06/19/24 15:23 History of Present Illness: 23-year-old female comes in complaining of pelvic pain. She has been seen about 2 months ago found to have a right ovarian cyst she has a follow-up with gynecology upcoming. She denies any vaginal bleeding denies any dysuria urgency or frequency no hematuria. Associated Symptoms: Denies chills, dysuria and fever(s) Related Data Date of Last Menstrual Period: 06/15/25 Home Medications Medication Instructions Recorded Confirmed levonorgestrel 21 mcg/24 hr (up to 20 mcg intrauterine DIRECTED 12/27/20 06/19/24 8 years) 52 mg intrauterine device (Mirena) imipramine HCl 10 mg tablet 50 mg PO .at bedtime 11/27/21 06/19/24 desvenlafaxine 50 mg 100 mg PO DAILY 04/19/22 06/19/24 tablet,extended release 24 hr buspirone 5 mg tablet 5 mg PO TID 07/03/23 06/19/24 diclofenac potassium 50 mg tablet 50 mg PO TID PRN Pain 04/02/24 06/19/24 gabapentin 300 mg capsule 300 mg PO BID 04/02/24 06/19/24 dicyclomine 10 mg capsule 10 mg PO TID 04/28/24 06/19/24 propranolol 40 mg tablet 20 mg PO BID 06/19/24 06/19/24 Previous Rx's Medication Instructions Recorded pantoprazole 40 mg tablet,delayed 40 mg PO BID #90 tabs 01/21/22 release arm brace #2 ea 06/27/22 diazepam 10 mg tablet (Valium) 10 mg PO .PRN PRN anxiety 3 months 04/08/24 #7 tabs sumatriptan succinate 100 mg 100 mg PO Q2H PRN migraines #30 04/08/24 tablet (Imitrex) tabs tizanidine 4 mg capsule 8 mg (2 x 4 mg) PO Q8H PRN Muscle 04/08/24 Spasm #360 caps hydrocodone 5 mg-acetaminophen 325 1 tab PO Q6H PRN pain #10 tabs 04/28/24 mg tablet promethazine 25 mg tablet 25 mg PO Q6H PRN nausea and 04/28/24 vomiting #20 tabs diclofenac sodium 75 mg 75 mg PO Q12H PRN pain #20 tabs 06/19/24 tablet,delayed release hydrocodone 5 mg-acetaminophen 325 1 tab PO Q6H PRN pain #7 tabs 06/19/24 mg tablet promethazine 25 mg tablet 25 mg PO Q6H PRN nausea and 06/19/24 vomiting #20 tabs onabotulinumtoxinA 100 unit See Rx Instructions .Route 06/21/24 solution for injection (Botox) .COMPLEX #2 ea Allergies Allergy/AdvReac Type Severity Reaction Status Date / Time Penicillins Allergy rash Verified 06/19/24 14:55 Review of Systems 2 Const: Denies: fever(s) or chills Card: Denies: chest pain Resp: Denies: dyspnea GI: Denies: abdominal pain : Denies: dysuria, urinary frequency or urinary urgency Musc: Denies: neck pain or back pain Skin/Breast: Denies: rash PFSH ED 2 PFSH: Medical History Hypertension No pertinent past medical history negx: dm,thyroid,dvt/pe PCP: [facility] Adverse effect of COVID-19 vaccine Cerebral palsy Brain injury at Chronic migraine without aura, intractable, with status migrainosus Foot anomaly, congenital Surgical History History of back surgery at age 13 Hx of release of tendon multiple, most recently was in 2019 S/P matrixectomy of toe Family History Grandmother Diabetes Maternal Hypertension Maternal Stroke Maternal Grandfather Diabetes Maternal Heart disease Paternal Mother Hypertension Denies family history of Colon cancer Ovarian cancer Hypercholesteremia Breast cancer Uterine cancer Thyroid disease Social History Smoking and tobacco/nicotine status: never used tobacco/nicotine Substance/Drug Use: never Do you think of yourself as: Straight/Heterosexual Female Reproductive History: Date of last menstrual period: 06/15/25 Physical Exam 2 Const: GENERAL APPEARANCE: cooperative ORIENTATION/CONSCIOUSNESS: Yes awake, Yes oriented to person, Yes oriented to place and Yes oriented to time HENMT: COMMON NORMALS: normocephalic, atraumatic and hearing grossly normal bilaterally HEAD & SCALP: normocephalic and atraumatic Resp: COMMON NORMALS: normal respiratory effort, No retractions, No use of accessory muscles and clear to auscultation bilaterally AUSCULTATION: clear to auscultation bilaterally Cardio: COMMON NORMALS: regular rate, regular rhythm and No murmurs present (Cardio) RATE: regular rate RHYTHM: regular rhythm GI: COMMON NORMALS: Soft to palpation and No hepatosplenomegaly present A USCULTATION: Yes normoactive bowel sounds PALPATION: Yes Soft to palpation, No Tenderness to palpation present (GI), No Guarding due to palpation present (GI) and Yes No hepatosplenomegaly present Extremity: COMMON NORMALS: normal to inspection, capillary refill normal, no clubbing, cyanosis or edema, no calf tenderness and no pedal edema Neuro: SENSORIUM/ORIENTATION: Yes oriented to person, Yes oriented to place and Yes oriented to time Skin: COMMON NORMALS: no rashes or lesions noted GENERAL SKIN EXAM: no rashes or lesions noted Course 2 Vital Signs: Vital signs: Vital Signs Temperature 98.4 F 06/19/24 14:52 Pulse Rate 92 06/19/24 17:17 Respiratory Rate 15 06/19/24 17:17 Blood Pressure 152/94 06/19/24 17:12 Pulse Oximetry 98 06/19/24 17:17 Oxygen Delivery Me thod Room Air 06/19/24 14:52 MDM - Abdominal Pain 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 Patient's pain is improved with medication discharge home have her follow-up with AGRICULTURAL EDUCATION PROFESSOR. Radiology report reported noted no ovarian cyst and difficulty visualizing the right ovary. She has follow-up with Jackie should complete this. Pain medications were given. hCG was negative. Lab Data 06/19/24 15:26 06/19/24 15:26 Labs/Radiology: Radiology Impressions Transvaginal US 06/19/24 15:54 IMPRESSION: 1. No acute findings. 2. Intrauterine device in place, grossly unchanged in position, although assessment of positioning is limited due to artifact. 3. The right ovary was not visualized. No visualized right adnexal cysts or lesions. Laboratory Results WBC 9.89 10^3/uL (3.29-11.43) 06/19/24 15:26 RBC 4.86 10^6/uL (3.85-5.65) 06/19/24 15:26 Hgb 14.90 g/dL (11.27-16.99) 06/19/24 15:26 Hct 44.2 % (36-47) 06/19/24 15:26 MCV 90.9 fl (85-98) 06/19/24 15:26 MCH 30.7 pg (27-33) 06/19/24 15:26 MCHC 33.7 g/dL (30-55) 06/19/24 15:26 RDW 11.9 % (12.1-15.1) L 06/19/24 15:26 Plt Count 452 10^3/cmm (157-399) H 06/19/24 15:26 MPV 8.3 fL (7.4-10.4) 06/19/24 15:26 Neut % (Auto) 49.4 % 06/19/24 15:26 Lymph % (Auto) 38.8 % 06/19/24 15:26 [place] % (Auto) 7.7 % 06/19/24 15:26 Eos % (Auto) 2.7 % 06/19/24 15:26 Baso % (Auto) 1.2 % 06/19/24 15:26 Neut # (Auto) 4.88 10^3/uL (1.8-7.7) 06/19/24 15:26 Lymph # (Auto) 3.8 10^3/uL (0.8-4.8) 06/19/24 15:26 [place] # (Auto) 0.8 10^3/uL (0.2-0.9) 06/19/24 15:26 Eos # (Auto) 0.3 10^3/uL (0.0-0.8) 06/19/24 15:26 Baso # (Auto) 0.1 10^3/uL (0.0-0.1) 06/19/24 15:26 Nucleated RBC % (auto) 0 % 06/19/24: Nucleated RBCs # 0.0 /100WBC 06/19/24 15:26 Sodium 140 mmol/L (136-145) 06/19/24 15:26 Potassium 4.1 mmol/L (3.5-5.1) 06/19/24 15:26 Chloride 103 mmol/L (98-107) 06/19/24 15:26 Carbon Dioxide 25 mmol/L (22-29) 06/19/24 15:26 Anion Gap 16.1 (5-19) 06/19/24 15:26 BUN 7 mg/dL (6-20) 06/19/24 15:26 Creatinine 0.5 mg/dL (0.5-0.9) 06/19/24 15:26 GFR Calculation 154.3 mL/min (90-130) H 06/19/24 15:26 Glucose 113 mg/dL (65-115) 06/19/24 15: Calculated Osmolality 289 mOsm/kg (285-295) 06/19/24 15:26 Calcium 9.6 mg/dL (8.5-10.5) 06/19/24 15: Total Bilirubin 0.6 mg/dL (0.15-1.2) 06/19/24 15:26 AST 13 U/L (0-32) 06/19/24 15:26 ALT 16 U/L (0-33) 06/19/24 15:26 Alkaline Phosphatase 76 U/L (35-105) 06/19/24 15:26 C-Reactive Protein 3.0 mg/L (0.0-4.9) 06/19/24 15: Total Protein 7.7 g/dL (6.6-8.7) 06/19/24 15: Albumin 4.1 g/dL (3.5-5.2) 06/19/24 15: Globulin 3.6 g/dL (1.3-4.6) 06/19/24 15:26 Lipase 39 U/L (13-60) 06/19/24 15:26 HCG, Qual Negative (Negative) 06/19/24 15:21 Urine Color Yellow (Yellow) 06/19/24 15: Urine Appearance Clear (CLEAR) 06/19/24 15:21 Urine pH 6.5 (5-7) 06/19/24 15:21 Ur Specific [place] 1.005 (1.005-1.030) 06/19/24 15:21 Urine Protein Negative (Negative) 06/19/24 15: Urine Glucose (UA) Negative (Normal) 06/19/24 15:21 Urine Ketones Negative (Negative) 06/19/24 15:21 Urine Blood Negative (Negative) 06/19/24 15:21 Urine Nitrate Negative (Negative) 06/19/24 15:21 Urine Bilirubin Negative (Negative) 06/19/24 15:21 Urine Urobilinogen 0.2 mg/dL (Negative) 06/19/24 15:21 Ur Leukocyte Esterase Negative (Negative) 06/19/24 15:21 Urine RBC 0-2 /hpf (0-2) 06/19/24 15:21 Urine WBC 0-5 /hpf (0-5) 06/19/24 15:21 Ur Squamous Epith Cells 0-5 /hpf (0-5) 06/19/24 15:21 Amorphous Sediment Not Reportable 06/19/24 15:21 Urine Bacteria None seen /hpf (NONE) 06/19/24 15:21 Hyaline Casts 0-4 /lpf H 06/19/24 15:21 All radiology interpretation(s) finalized by discharge Discharge Plan Discharge Patient Disposition: Home Clinical Impression: Ovarian cyst Condition: Stable Prescriptions: New hydrocodone-acetaminophen 5-325 mg tablet 1 tab PO Q6H PRN (Reason: pain) Qty: 7 0RF diclofenac sodium 75 mg tablet,delayed release (DR/EC) 75 mg PO Q12H PRN (Reason: pain) Qty: 20 0RF promethazine 25 mg tablet 25 mg PO Q6H PRN (Reason: nausea and vomiting) Qty: 20 0RF No Action desvenlafaxine 50 mg tablet extended release 24 hr 100 mg PO DAILY Mirena 20 mcg/24 hours (6 yrs) 52 mg intrauterine device 20 mcg intrauterine DIRECTED diclofenac potassium 50 mg tablet 50 mg PO TID PRN (Reason: Pain) gabapentin 300 mg capsule 300 mg PO BID imipramine HCl 10 mg tablet 50 mg PO .at bedtime (DME) [place] [facility] [place] .Route Qty: 2 0RF Rx Instructions: As directed buspirone 5 mg tablet 5 mg PO TID diazepam [Valium] 10 mg tablet 10 mg PO .PRN PRN (Reason: anxiety) 90 Days Qty: 7 2RF Rx Instructions: As needed for Botox sumatriptan succinate [Imitrex] 100 mg tablet 100 mg PO Q2H PRN (Reason: migraines) Qty: 30 3RF tizanidine 4 mg capsule 8 mg PO Q8H PRN (Reason: Muscle Spasm) Qty: 360 3RF Botox 100 unit recon soln See Rx Instructions .ROUTE .COMPLEX Qty: 2 0RF Dose Instruction: Inject 155 units IM-31 sites, 5 units/site per FDA protocol: in procerus, in bilateral vp respiratory, frontalis (2 sites bilaterally),temporalis (4 sites bilateral), occipitalis (3 sites bilateral), paraspinosus cervical bilaterally (2 injections), trapezius (3 sites bilateral) Rx Instructions: Inject 155 units IM-31 sites, 5 units/site per FDA protocol: in procerus, in bilateral vp respiratory, frontalis (2 sites bilaterally),temporalis (4 sites bilateral), occipitalis (3 sites bilateral), paraspinosus cervical bilaterally (2 injections), trapezius (3 sites bilateral) dicyclomine 10 mg capsule 10 mg PO TID hydrocodone-acetaminophen 5-325 mg tablet 1 tab PO Q6H PRN (Reason: pain) Qty: 10 0RF promethazine 25 mg tablet 25 mg PO Q6H PRN (Reason: nausea and vomiting) Qty: 20 0RF propranolol 40 mg tablet 20 mg PO BID Rx Instructions: TAKE 1/2 TABLET BY MOUTH TWICE DAILY pantoprazole 40 mg tablet,delayed release (DR/EC) 40 mg PO BID Qty: 90 8RF Discharge Orders: Discharge ED (Routine); Ordered 06/19/24 Ordered By: Alexandre Sarabia Referrals: Magnus Jiang, EXERCISE MANAGER [Primary Care Provider] - Patient Instructions: Opioid Safety, Pain Management Activity Restrictions/Additional Instructions: Thank you for choosing [facility] for your healthcare needs today. It is very important that you follow up as instructed or that you return to the Emergency Department should you have concerns or if your condition changes or worsens in any way. You are seen in the emergency room for pelvic pain. There is an ovarian cyst noted on the ultrasound. There is no evidence of fluid your white count was normal. Your other laboratory test including chemistries liver functions kidney functions and urine were all normal as well. Follow-up with gynecology as previously planned. You are given diclofenac hydrocodone or promethazine to use for symptoms. Coding Level of Care Code ED Juice Mixer for Shelby Barron
[2024-06-19 15:32] LABS: HCG Qualitative Urine. Negative (Negative)
[2024-06-19 15:33] LABS: Add Urine Microscopic? YES; Bacteria Urine None Seen /hpf; Hyaline Casts Urine 0-4 /lpf; RBC Urine 0-2 /hpf (0-2); Squamous Epithelial Cell Urine 0-5 /hpf (0-5); WBC Urine 0-5 /hpf (0-5)
[2024-06-19] MEDS: ketorolac 30 mg/mL INJ IVP (15:49)
[2024-06-19 15:52] LABS: Alanine Aminotransferase 16 U/L (0-33); Albumin Level 4.1 g/dL (3.5-5.2); Alkaline Phosphatase 76 U/L (35-105); Anion Gap 16.1 (5-19); Aspartate Amino Transferase 13 U/L (0-32); Blood Urea Nitrogen 7 mg/dL (6-20); Calcium 9.6 mg/dL (8.5-10.5); Carbon Dioxide 25 mmol/L (22-29); Chloride 103 mmol/L (98-107); Creatinine Clr Calc Pharmacy 168.3692; Globulin 3.6 g/dL (1.3-4.6); Glomerular Filtration Rate 154.3 mL/min (90-130); Glucose 113 mg/dL (65-115); Lipase 39 U/L (13-60); Osmolality Calculated 289 mOsm/kg (285-295); Potassium 4.1 mmol/L (3.5-5.1); Sodium 140 mmol/L (136-145); Total Bilirubin 0.6 mg/dL (0.15-1.2); Total Protein 7.7 g/dL (6.6-8.7)
--- NOTE | 2024-06-19 15:54 | USR_ITS ---
PROCEDURE INFORMATION: Exam: US Pelvis, Transvaginal, Non-Obstetric Exam date and time: 06/19/2024 4:38 PM Age: 23 years old Clinical indication: Pelvic pain TECHNIQUE: Imaging protocol: Real-time transvaginal pelvic (non-obstetric) ultrasound with image documentation. Transvaginal imaging was used for better evaluation of the endometrium, adnexa, and/or cervix. COMPARISON: US pelvis lmt w transvag 04/28/2024 5:11 PM FINDINGS: Uterus: The uterus is anteverted and measures 2.3 x 3.4 x 6.1 cm. There is trace amount of fluid within the cervix. There is an intrauterine device in place, which appears unchanged in position, suboptimally assessed due to artifact. The endometrial echo complex measures 0.4 cm. Right ovary/adnexa: Not visualized. No abnormality seen in the right adnexal region. Left ovary/adnexa: The left ovary measures 2.2 x 2.4 x 1.5 cm. There is a 1.7 cm dominant follicle. Normal flow is seen on color Doppler, with preserved waveforms. Urinary bladder: Urinary bladder is limited. Intraperitoneal space: No free fluid. US/US transvaginal [id number] IMPRESSION: 1. No acute findings. 2. Intrauterine device in place, grossly unchanged in position, although assessment of positioning is limited due to artifact. 3. The right ovary was not visualized. No visualized right adnexal cysts or lesions.
[2024-06-19 17:12] VITALS: BP 152/94; PULSE 90; O2SAT 96
[2024-06-19 17:17] VITALS: PULSE 92; RESP 15; O2SAT 98
== END 2024-06-19 17:19 | disposition home or self-care (01) ==
PROVIDERS: Nurse Practitioner; Emergency Provider Family Medicine; PCP Nurse Practitioner
DX: N83.201 Unspecified ovarian cyst, right side (principal); I10 Essential (primary) hypertension
CPT/HCPCS: 76830; 80053; 81001; 81025; 83690; 85025; 86140; 96374; 99284; J1885

== ENCOUNTER → 2024-07-02 13:51 | Outpatient (BNVA) | payer MEDICARE, SELFPAY | PROVIDERS: PCP Nurse Practitioner; Visit Provider Specialist | DX: G43.711 Chronic migraine without aura, intractable, with status migrainosus (principal) | CPT/HCPCS: 64615 ==

== ENCOUNTER 2024-07-07 08:06 | Observation (INO) | payer MEDICARE, SELFPAY ==
[2024-07-07] VITALS (11 sets, daily range): BP systolic 148–174; BP diastolic 83–131; PULSE 88–123; RESP 14–24; TEMP 36.4–36.8; O2SAT 94–100; BMI 37.7
--- NOTE | 2024-07-07 08:09 | XR_ITS ---
WS: [id number] Portable AP upright chest, 07/07/2024 Clinical Data: dyspnea/cough Comparison: Two-view chest, 07/03/2017. Findings: No nodules, masses or effusions are seen. The heart is normal. The pulmonary vascularity is not increased. No pneumonia or pneumothorax is seen. XR/XR chest 1V portable [id number] Impression: Negative chest.
--- NOTE | 2024-07-07 08:15 | ED_ITS ---
HPI - Abdominal Pain 2 General: Chief Complaint: Abdominal Pain Stated Complaint: right side abdominal pain Time Seen by Provider: 07/07/24 08:08 History of Present Illness: 23-year-old female presents to the [facility] ency room with right-sided abdominal pain. She is previously been seen and had an ovarian cyst 1 point looks like it may had ruptured or drained a bit. She had a Mirena which she was concerned may be causing the Mirena was removed despite this she still has symptoms. She has not had any biliary colic like symptoms. More of her abdominal pain is right mid abdomen to lower abdomen. Previous CT did not show any significant abnormality liver functions were normal she has not really noticed anything that triggers or relieves it. Patient had extensive diarrhea that began yesterday. No hematochezia or melena. She states her rectal area is very sore and raw from frequent diarrhea and when she wipes she has small smears of blood from the localized irritation but no actual blood in the stool. She denies any hematuria. Associated Symptoms: Reports nausea and vomiting; Denies chills, dysuria and fever(s) Related Data Home Medications Medication Instructions Recorded Confirmed buspirone 5 mg tablet 5 mg PO TID 07/03/23 07/07/24 dicyclomine 10 mg capsule 10 mg PO TID 04/28/24 07/07/24 propranolol 40 mg tablet 20 mg PO BID 06/19/24 07/07/24 desvenlafaxine succinate 100 mg 100 mg PO DAILY 07/07/24 07/07/24 tablet,extended release 24 hr drospirenone 3 mg-ethinyl 1 tab PO DAILY 07/07/24 07/07/24 estradiol 0.02 mg tablet (Loryna (28)) tizanidine 4 mg tablet 4 mg PO Q8H 07/07/24 07/07/24 Previous Rx's Medication Instructions Recorded pantoprazole 40 mg tablet,delayed 40 mg PO BID #90 tabs 01/21/22 release arm brace #2 ea 06/27/22 diazepam 10 mg tablet (Valium) 10 mg PO .PRN PRN anxiety 3 months 04/08/24 #7 tabs sumatriptan succinate 100 mg 100 mg PO Q2H PRN migraines #30 04/08/24 tablet (Imitrex) tabs promethazine 25 mg tablet 25 mg PO Q6H PRN nausea and 04/28/24 vomiting #20 tabs diclofenac sodium 75 mg 75 mg PO Q12H PRN pain #20 tabs 06/19/24 tablet,delayed release onabotulinumtoxinA 100 unit See Rx Instructions .Route 06/21/24 solution for injection (Botox) .COMPLEX #2 ea gabapentin 600 mg tablet 600 mg PO TID #90 tabs 07/08/24 Allergies Allergy/AdvReac Type Severity Reaction Status Date / Time Penicillins Allergy rash Verified 07/02/24 13:53 Review of Systems 2 Const: Denies: fever(s) or chills Card: Denies: chest pain Resp: Denies: dyspnea GI: Reports: abdominal pain, nausea and vomiting : Denies: dysuria, urinary frequency or urinary urgency Musc: Denies: neck pain or back pain Skin/Breast: Denies: rash PFSH ED 2 PFSH: Medical History Hypertension No pertinent past medical history negx: dm,thyroid,dvt/pe PCP: [facility] Adverse effect of COVID-19 vaccine Cerebral palsy Brain injury at Chronic migraine without aura, intractable, with status migrainosus Foot anomaly, congenital Surgical History History of back surgery at age 13 Hx of release of tendon multiple, most recently was in 2019 S/P matrixectomy of toe Family History Grandmother Diabetes Maternal Hypertension Maternal Stroke Maternal Grandfather Diabetes Maternal Heart disease Paternal Mother Hypertension Denies family history of Colon cancer Ovarian cancer Hypercholesteremia Breast cancer Uterine cancer Thyroid disease Social History Smoking and tobacco/nicotine status: never used tobacco/nicotine Substance/Drug Use: never Do you think of yourself as: Straight/Heterosexual Physical Exam 2 Const: GENERAL APPEARANCE: cooperative ORIENTATION/CONSCIOUSNESS: Yes awake, Yes oriented to person, Yes oriented to place and Yes oriented to time HENMT: COMMON NORMALS: normocephalic, atraumatic and hearing grossly normal bilaterally HEAD & SCALP: normocephalic and atraumatic Resp: COMMON NORMALS: normal respiratory effort, No retractions, No use of accessory muscles and clear to auscultation bilaterally AUSCULTATION: clear to auscultation bilaterally Cardio: COMMON NORMALS: regular rate, regular rhythm and No murmurs present (Cardio) RATE: regular rate RHYTHM: regular rhythm GI: COMMON NORMALS: No hepatosplenomegaly present AUSCULTATION: Yes normoactive bowel sounds PALPATION: Yes Tenderness to palpation present (GI), No Guarding due to palpation present (GI) and Yes No hepatosplenomegaly present Extremity: COMMON NORMALS: normal to inspection, capillary refill normal, no clubbing, cyanosis or edema, no calf tenderness and no pedal edema Neuro: SENSORIUM/ORIENTATION: Yes oriented to person, Yes oriented to place and Yes oriented to time Skin: COMMON NORMALS: no rashes or lesions noted GENERAL SKIN EXAM: no rashes or lesions noted Course 2 Vital Signs: Vital signs: Vital Signs Temperature 98.7 F 07/08/24 17:14 Pulse Rate 105 H 07/08/24 17:14 Respiratory Rate 15 07/08/24 17:14 Blood Pressure 135/87 07/08/24 17:14 Pulse Oximetry 98 07/08/24 17:14 Oxygen Delivery Me thod Room Air 07/08/24 15:30 MDM - Abdominal Pain Medical Decision Making Patient has a white count of 15,000 there is concern of early appendicitis on the CT. Discussed with Dr. Pringle patient was given Zosyn will keep her n.p.o. Dr. Pringle will see the patient will admit to her his services. Medical Records I reviewed the patient's medical records. Lab Data I reviewed the patient's lab results. 07/08/24 05:47 07/08/24 05:47 Labs/Radiology: Radiology Impressions Chest X-Ray 07/07/24 08:09 Impression: Negative chest. Abdomen/Pelvis CT 07/08/24 07:56 IMPRESSION: 1. No suspicion for appendicitis on today's exam. There is less wall thickening and the appendix as decreased slightly in size and now contains air. 2. No free fluid or free air. 3. No GI tract obstruction. 4. Small bilateral ovarian follicles. 5. No renal obstruction. Laboratory Results WBC 15.06 10^3/uL (3.29-11.43) H 07/07/24 08:30 RBC 5.05 10^6/uL (3.85-5.65) 07/07/24 08:30 Hgb 15.40 g/dL (11.27-16.99) 07/07/24 08:30 Hct 48.1 % (36-47) H 07/07/24 08:30 MCV 95.2 fl (85-98) 07/07/24 08:30 MCH 30.5 pg (27-33) 07/07/24 08: MCHC 32.0 g/dL (30-55) 07/07/24 08:30 RDW 11.8 % (12.1-15.1) L 07/07/24 08:30 Plt Count 458 10^3/cmm (157-399) H 07/07/24 08:30 MPV 8.7 fL (7.4-10.4) 07/07/24 08:30 Neut % (Auto) 81.1 % 07/07/24 08:30 Lymph % (Auto) 14.7 % 07/07/24 08:30 [place] % (Auto) 2.1 % 07/07/24 08:30 Eos % (Auto) 1.1 % 07/07/24 08:30 Baso % (Auto) 0.7 % 07/07/24 08:30 Neut # (Auto) 12.22 10^3/uL (1.8-7.7) H 07/07/24 08:30 Lymph # (Auto) 2.2 10^3/uL (0.8-4.8) 07/07/24 08:30 [place] # (Auto) 0.3 10^3/uL (0.2-0.9) 07/07/24 08:30 Eos # (Auto) 0.2 10^3/uL (0.0-0.8) 07/07/24 08:30 Baso # (Auto) 0.1 10^3/uL (0.0-0.1) 07/07/24 08:30 Nucleated RBC % (auto) 0 % 07/07/24 08:30 Nucleated RBCs # 0.0 /100WBC 07/07/24 08:30 Sodium 139 mmol/L (136-145) 07/07/24 08:55 Potassium 3.5 mmol/L (3.5-5.1) 01/22/25 08:55 Chloride 103 mmol/L (98-107) 07/07/24 08:55 Carbon Dioxide 19 mmol/L (22-29) L 07/07/24 08:55 Anion Gap 20.5 (5-19) H 07/07/24 08:55 BUN 10 mg/dL (6-20) 07/07/24 08:55 Creatinine 0.5 mg/dL (0.5-0.9) 07/07/24 08:55 GFR Calculation 154.3 mL/min (90-130) H 07/07/24 08:55 Glucose 121 mg/dL (65-115) H 07/07/24 08:55 Calculated Osmolality 288 mOsm/kg (285-295) 07/07/24 08:55 Lactic Acid 2.7 mmol/L (0.5-2.2) H 07/07/24 08:55 Calcium 9.6 mg/dL (8.5-10.5) 07/07/24 08:55 Total Bilirubin 0.9 mg/dL (0.15-1.2) 07/07/24 08:55 AST 17 U/L (0-32) 07/07/24 08:55 ALT 22 U/L (0-33) 07/07/24 08:55 Alkaline Phosphatase 72 U/L (35-105) 07/07/24 08:55 Total Protein 8.5 g/dL (6.6-8.7) 07/07/24 08:55 Albumin 4.2 g/dL (3.5-5.2) 07/07/24 08:55 Globulin 4.3 g/dL (1.3-4.6) 07/07/24 08:55 HCG, Qual Negative (Negative) 07/07/24 08:55 Urine Color [place] (Yellow) A 07/07/24 08:34 Urine Appearance Cloudy (CLEAR) A 07/07/24 08:34 Urine pH 7.5 (5-7) 07/07/24 08:34 Ur Specific [place] 1.023 (1.005-1.030) 07/07/24 08:34 Urine Protein 2+ (Negative) A 07/07/24 08:34 Urine Glucose (UA) Negative (Normal) 07/07/24 08:34 Urine Ketones 3+ (Negative) H 07/07/24 08:34 Urine Blood Negative (Negative) 07/07/24 08:34 Urine Nitrate Negative (Negative) 07/07/24 08:34 Urine Bilirubin Negative (Negative) 07/07/24 08:34 Urine Urobilinogen 1.0 mg/dL (Negative) 07/07/24 08:34 Ur Leukocyte Esterase Negative (Negative) 07/07/24 08:34 Urine RBC 3-5 /hpf (0-2) 07/07/24 08:34 Urine WBC 0-5 /hpf (0-5) 07/07/24 08:34 Ur Squamous Epith Cells 11-20 /hpf (0-5) H 07/07/24 08:34 Amorphous Sediment Not Reportable 07/07/24 08:34 Urine Bacteria 2+ /hpf (NONE) H 07/07/24 08:34 Hyaline Casts 0.81 /lpf 07/07/24 08:34 Urine Opiates Screen Positive ng/mL (Negative) H 07/07/24 08:34 Ur Barbiturates Screen Negative ng/mL (Negative) 07/07/24 08:34 Ur Phencyclidine Scrn Negative ng/mL (Negative) 07/07/24 08:34 Ur Amphetamines Screen Negative ng/mL (Negative) 07/07/24 08:34 U Benzodiazepines Scrn Negative ng/mL (Negative) 07/07/24 08:34 Urine Cocaine Screen Negative ng/mL (Negative) 07/07/24 08:34 U Marijuana (THC) Screen Positive ng/mL (Negative) H 07/07/24 08:34 All radiology interpretation(s) finalized by discharge Discharge Plan Discharge Patient Disposition: Admitted As Inpatient Admit Provider: Juna Antonio Pringle Clinical Impression: Acute appendicitis, Abdominal pain Condition: Stable Discharge Diet: Advance as tolerated Discharge Activity: Resume usual activity Coding Level of Care Code ED Commercial Sales Consultant for Shelby Barron
--- NOTE | 2024-07-07 08:29 | CT_ITS ---
WS: [id number] CT ABDOMEN AND PELVIS WITH CONTRAST HISTORY: RIGHT abdominal pain. Known cyst. TECHNIQUE: Imaging performed of the abdomen and pelvis with IV contrast. Single phase imaging of the abdomen. Coronal and sagittal reformats are submitted. All CT scans at [facility] use at [address] one of these dose optimization techniques: automated exposure control; mA and/or kV adjustment per patient size (includes targeted exams where dose is matched to clinical indication); or iterative re construction. IV CONTRAST: Omnipaque 350; 100 mL IV. Oral contrast: No DLP: 826.27 mGy.cm COMPARISON: 04/28/2024 Lower thorax: Lung bases are clear. Heart is normal size. No hiatal hernia. Liver/biliary system: Normal size with no intrahepatic dilatation. Gallbladder: Normal. No gallstones or wall thickening. No pericholecystic fluid. Pancreas: Normal size pancreas and pancreatic duct. No adjacent inflammation. Spleen: Normal size spleen. No mass or infarct. Adrenal glands: Normal RIGHT adrenal gland. Calcification LEFT adrenal gland is stable. Right kidney: Mild atrophy of the kidney. Kidney measures 8.8 cm in length. Multifocal areas of corti jordan thinning and scarring. There is normal enhancement within the renal parenchyma remaining. No obst ruction. Left kidney: Normal. Aorta: Normal. Lymphadenopathy: Small mesenteric lymph nodes are noted in the RIGHT lower quadrant with the largest measuring 6 mm. Free fluid: None. GI tract: Interval change in appearance of the appendix since the prior study of 04/28/2024. The appe ndix now measures 6.6 mm in diameter with mild hyperemia. There is no adjacent inflammation but the w all of the appendix is irregular and there is no remaining air in the appendix. Highly suspicious for early acute appendicitis. There is no adjacent fluid. The remaining GI tract is negative. Abdominal wall: Unremarkable abdominal wall. No hernia. Pelvis: No free fluid or adenopathy within the pelvis. Recently described RIGHT ovarian cyst has sign ificantly collapsed. Residual cyst is 2.3 x 2.0 cm. Dominant follicle LEFT ovary 1.8 x 2.1 cm. Bones: Unremarkable. CT/CT abdomen pelvis w con* [id number] IMPRESSION: 1. Interval change in appearance of the appendix since 09/26/2022 and 4. The appendix has increased in size to 6.6 mm with no residual air. There is mild hyperemia. No appendicolith and no adjacent inflammation. Highly suspiciou s for early appendicitis. No appendiceal rupture. 2. RIGHT ovarian cyst has collapsed. No residual cyst. 3. No free fluid. Notified Alexandre Sarabia DO at 07/07/2024 10:25 AM.
[2024-07-07 08:39] LABS: Basophils # 0.1 10^3/uL (0.0-0.1); Basophils % 0.7 %; Eosinophils # 0.2 10^3/uL (0.0-0.8); Eosinophils % 1.1 %; Hematocrit 48.1 % (36-47); Lymphocytes # 2.2 10^3/uL (0.8-4.8); Lymphocytes % 14.7 %; Mean Corpuscular Hemoglobin 30.5 pg (27-33); Mean Corpuscular Volume 95.2 fl (85-98); Mean Platelet Volume 8.7 fL (7.4-10.4); Monocytes # 0.3 10^3/uL (0.2-0.9); Monocytes % 2.1 %; Neutrophils # 12.22 10^3/uL (1.8-7.7); Neutrophils % 81.1 %; Nucleated Red Blood Cells % 0 %; Platelet Count 458 10^3/cmm (157-399); Red Blood Count 5.05 10^6/uL (3.85-5.65); Red Cell Distribution Width 11.8 % (12.1-15.1); White Blood Count 15.06 10^3/uL (3.29-11.43)
[2024-07-07 08:43] LABS: Bilirubin Urine Negative (Negative); Blood Urine Negative (Negative); Glucose Urine UA Negative (Normal); Ketones Urine 3+ (Negative); Leukocyte Esterase Urine Negative (Negative); Nitrate Urine Negative (Negative); Protein Urine 2+ (Negative); Specific Gravity, Urine 1.023 (1.005-1.030); Urine Appearance Cloudy (CLEAR); pH Urine 7.5 (5-7)
[2024-07-07 08:48] LABS: Add Urine Microscopic? YES; Bacteria Urine 2+ /hpf; Hyaline Casts Urine 0.81 /lpf; WBC Urine 0-5 /hpf (0-5)
[2024-07-07] MEDS: ondansetron 2 mg/ML SDV 2 mL 4 MG IVP ×3 (09:02→20:06)
[2024-07-07] MEDS: ketorolac 30 mg/mL INJ IVP (09:02)
[2024-07-07] MEDS: morphine 4 mg/mL SDV 1 mL IVP ×2 (09:02→11:11)
[2024-07-07 09:16] LABS: Urine Color Orange (Yellow)
[2024-07-07 09:32] LABS: HCG, Serum Qual Negative (Negative)
[2024-07-07 09:33] LABS: Lactic Sepsis W/Reflex 2.7 mmol/L (0.5-2.2)
[2024-07-07 09:39] LABS: Alanine Aminotransferase 22 U/L (0-33); Albumin Level 4.2 g/dL (3.5-5.2); Alkaline Phosphatase 72 U/L (35-105); Anion Gap 20.5 (5-19); Aspartate Amino Transferase 17 U/L (0-32); Blood Urea Nitrogen 10 mg/dL (6-20); Calcium 9.6 mg/dL (8.5-10.5); Carbon Dioxide 19 mmol/L (22-29); Chloride 103 mmol/L (98-107); Creatinine Clr Calc Pharmacy 173.6226; Globulin 4.3 g/dL (1.3-4.6); Glomerular Filtration Rate 154.3 mL/min (90-130); Glucose 121 mg/dL (65-115); Osmolality Calculated 288 mOsm/kg (285-295); Potassium 3.5 mmol/L (3.5-5.1); Sodium 139 mmol/L (136-145); Total Bilirubin 0.9 mg/dL (0.15-1.2); Total Protein 8.5 g/dL (6.6-8.7)
[2024-07-07 09:42] LABS: Amphetamines Screen Urine Negative (Negative); Barbiturates Screen Urine Negative (Negative); Benzodiazepines Screen Urine Negative (Negative); Cocaine Screen Urine Negative (Negative); Opiate Screen Urine Positive (Negative); PCP Screen Urine Negative (Negative); THC Screen Urine Positive (Negative)
[2024-07-07] MEDS: iohexol 350 mg/mL 500 mL Btl (per mL) IV (09:54)
[2024-07-07 10:45] LABS: Reflex Lactate Order REFLEX LACTIC ORDERD
[2024-07-07] MEDS: sodium chloride 0.9% 1,000 ML 999 ML IV (11:11)
[2024-07-07] MEDS: prochlorperazine 10 mg/2 mL Inj IVP (11:11)
[2024-07-07] MEDS: metroNIDAZOLE IV 500 MG/100 ML PREMIX 100 MG IV (11:11)
--- NOTE | 2024-07-07 12:09 | PC.NURSE ---
This nurse took report from Lalita GhoshRN in ER at 1208 for TAZ Abrams.
--- NOTE | 2024-07-07 12:14 | PC.NURSE ---
REPORT CALLED TO VANIA VARELA LPN ABX BAG SENT WITH PATIENT TO FLOOR NURSE PULLED BUT DID NOT START MEDICATION UNTIL 1ST ABX WAS FINISHED.
[2024-07-07] MEDS: ciprofloxacin 400 MG/200 ML PREMIX 200 MG IV (12:49)
[2024-07-07 13:24] LABS: Lactic Acid level (Lactate) 1.3 mmol/L (0.5-2.2)
[2024-07-07] MEDS: HYDROmorphone 1 mg/mL INJ 1 mL IVP ×3 (14:24→23:16)
--- NOTE | 2024-07-07 15:08 | P.CONIM_ITS ---
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 She had been seen in the ER due to pelvic pain. Review of Systems 2 General: Reports: 10 or more systems reviewed and unremarkable except in HPI and below Const: Denies: fever(s) or chills ENMT: Denies: throat pain Card: Denies: chest pain Resp: Denies: dyspnea, productive cough or non-productive cough GI: Denies: abdominal pain : Reports: pelvic pain; Denies: flank pain, difficulty voiding, dysuria, urinary frequency, urinary urgency, urinary incontinence, genital lesions, genital pruritis, vaginal dryness, vaginal odor, vaginal bleeding, vaginal discharge, dysmenorrhea, irregular period, metrorrhagia, amenorrhea, prolapse symptoms or dyspareunia Medications/Allergies Home Medications Medication Instructions Recorded Confirmed Last Taken Type pantoprazole 40 mg tablet,delayed 40 mg PO BID #90 tabs 01/21/22 07/07/24 06/18/24 Rx release arm brace #2 ea 06/27/22 07/07/24 Unknown Rx buspirone 5 mg tablet 5 mg PO TID 07/03/23 07/07/24 06/18/24 History gabapentin 300 mg capsule 300 mg PO BID 04/02/24 07/07/24 06/18/24 History diazepam 10 mg tablet (Valium) 10 mg PO .PRN PRN anxiety 3 months 04/08/24 07/07/24 06/18/24 Rx #7 tabs sumatriptan succinate 100 mg 100 mg PO Q2H PRN migraines #30 04/08/24 07/07/24 04/26/24 Rx tablet (Imitrex) tabs dicyclomine 10 mg capsule 10 mg PO TID 04/28/24 07/07/24 06/18/24 History promethazine 25 mg tablet 25 mg PO Q6H PRN nausea and 04/28/24 07/07/24 Unknown Rx vomiting #20 tabs diclofenac sodium 75 mg 75 mg PO Q12H PRN pain #20 tabs 06/19/24 07/07/24 Unknown Rx tablet,delayed release propranolol 40 mg tablet 20 mg PO BID 06/19/24 07/07/24 06/18/24 History onabotulinumtoxinA 100 unit See Rx Instructions .Route 06/21/24 07/07/24 Unknown Rx solution for injection (Botox) .COMPLEX #2 ea desvenlafaxine succinate 100 mg 100 mg PO DAILY 07/07/24 07/07/24 Unknown History tablet,extended release 24 hr drospirenone 3 mg-ethinyl 1 tab PO DAILY 07/07/24 07/07/24 Unknown History estradiol 0.02 mg tablet (Loryna (28)) tizanidine 4 mg tablet 4 mg PO Q8H 07/07/24 07/07/24 Unknown History Allergies Allergy/AdvReac Type Severity Reaction Status Date / Time Penicillins Allergy rash Verified 07/02/24 13:53 Current Medications Generic Name Dose Route Start Last Admin Trade Name Freq PRN Reason Stop Dose Admin Hydromorphone HCl 1 mg 07/07/24 13:21 07/07/24 14:24 Hydromorphone 1 Mg/Ml Inj 1 Ml IVP 1 mg Q3H PRN Administration PAIN Ondansetron HCl 4 mg 07/07/24 13:22 07/07/24 13:49 Ondansetron 2 Mg/Ml Sdv 2 Ml IVP 4 mg Q6H PRN Administration NAUSEA AND VOMITING PFSH GEOLOGY TECHNICIAN 2 PFSH: Medical History Hypertension No pertinent past medical history negx: dm,thyroid,dvt/pe PCP: [facility] Adverse effect of COVID-19 vaccine Cerebral palsy Brain injury at Chronic migraine without aura, intractable, with status migrainosus Foot anomaly, congenital Surgical History History of back surgery at age 13 Hx of release of tendon multiple, most recently was in 2019 S/P matrixectomy of toe Family History Grandmother Diabetes Maternal Hypertension Maternal Stroke Maternal Grandfather Diabetes Maternal Heart disease Paternal Mother Hypertension Denies family history of Colon cancer Ovarian cancer Hypercholesteremia Breast cancer Uterine cancer Thyroid disease Social History Smoking and tobacco/nicotine status: never used tobacco/nicotine Substance/Drug Use: never Do you think of yourself as: Straight/Heterosexual Vitals/I&O/Wt Last Vital Signs Temp 97.6 F 07/07/24 12:44 Pulse 90 07/07/24 12:44 Resp 14 07/07/24 14:24 BP 163/125 07/07/24 12:44 Pulse Ox 96 07/07/24 12:44 O2 Del Method Room Air 07/07/24 12:44 07/07/24 07/07/24 07/07/24 06:59 14:59 22:59 Intake Total 1300 / 1300 Balance 1300 / 1300 Weight last 48 hrs Weight 87.543 kg Physical Exam 2 Const: COMMON NORMALS: no acute distress, average body habitus and patient oriented x3 GENERAL APPEARANCE: cooperative and well kempt HENMT: COMMON NORMALS: normocephalic and atraumatic HEAD & SCALP: n ormocephalic and atraumatic Neck/C-Spine: COMMON NORMALS: full ROM Chest: COMMONS NORMALS: normal inspection of the chest Resp: COMMON NORMALS: normal respiratory effort Cardio: COMMON NORMALS: regular rate and regular rhythm RATE: regular rate RHYTHM: regular rhythm GI: COMMON NORMALS: Soft to palpation INSPECTION: Yes normal to inspection PALPATION: Yes Soft to palpation and Yes Other GI palpation findings present (Right lower quadrant tenderness) Neuro: COMMON NORMALS: patient oriented x3 Psych: APPEARANCE: Yes well kempt Data 07/07/24 08:30 07/07/24 08:55 A&P Assessment and plan (1) Pelvic pain: Mrs. Riojas 23 y/o female with history of pelvic pain, she was counseled regarding Chronic pelvic pain is defined as pain that occurs below the umbilicus (belly button) that lasts for at least six months. Causes of chronic pelvic pain include a variety of gynecologic, gastrointestinal, urologic, musculoskeletal and body-wide disorders can cause chronic pelvic pain. Gynecologic causes include endometriosis, pelvic inflammatory disease, pelvic adhesive disease, and enlarged fibroid uterus. Other causes include Irritable bowel syndrome, Painful bladder syndrome and interstitial cystitis, diverticulitis, pelvic floor pain, abdominal myofascial pain, and fibromyalgia. Treatment modalities include medical treatment, physical therapy, pain management clinics, and surgical treatment. She had been treated medically without significant improvement. A few causes of gynecologic pelvic pain can be treated surgically like a hysterectomy may alleviate chronic pelvic pain, especially when it is due to uterine disorders such as adenomyosis or fibroids. She was counseled about the need to evaluate the pelvis via a diagnostic laparoscopy. CT scan shows no ENVIRONMENTAL DESIGNER pathology, transvaginal ultrasound on June 19, 2024 was unremarkable. Differential at this time may be endometriosis for for which she is already being treated via hormonal IUD. Follow-up at the ENVIRONMENTAL DESIGNER clinic after discharge. Coding Level [facility] Pelvic pain R10.2
--- NOTE | 2024-07-07 18:12 | P.HP_ITS ---
Providers/Chief Complaint 2 Admitting Physician: Juan Antonio Pringle DO Primary Care Provider: BELA Enrique Chief Complaint: right side abdominal pain History of Present Illness Shonna Riojas is a 23 year old female with a several year history of abdominal pain nausea and vomiting, including a nearly constant history of abdominal pain nausea and vomiting for the past 4 months along with several hospital visits with a history of spastic diplegic cerebral palsy, chronic migraine, ovarian cyst and menometrorrhagia, presented to the hospital with a 4-month history of abdominal pain, usually more right-sided nausea and emesis. She is crying and very distressed. She reports that she has an appointment to see a flume ride operator but has not seen one yet. She had her IUD removed to consent has been oral hormonal control. She denies any sick contacts, recent travel or possibility of eating bad food. A CT of the abdomen pelvis no longer shows a right ovarian cyst that was present 2 months ago but does show a 6 mm somewhat hyperemic appendix without appendicolith or surrounding inflammation. Review of Systems 2 General: Reports: 10 or more systems reviewed and unremarkable except in HPI and below Medications/Allergies Home Medications Medication Instructions Recorded Confirmed Last Taken Type pantoprazole 40 mg tablet,delayed 40 mg PO BID #90 tabs 01/21/22 07/07/24 06/18/24 Rx release arm brace #2 ea 06/27/22 07/07/24 Unknown Rx buspirone 5 mg tablet 5 mg PO TID 07/03/23 07/07/24 06/18/24 History gabapentin 300 mg capsule 300 mg PO BID 04/02/24 07/07/24 06/18/24 History diazepam 10 mg tablet (Valium) 10 mg PO .PRN PRN anxiety 3 months 04/08/24 07/07/24 06/18/24 Rx #7 tabs sumatriptan succinate 100 mg 100 mg PO Q2H PRN migraines #30 04/08/24 07/07/24 04/26/24 Rx tablet (Imitrex) tabs dicyclomine 10 mg capsule 10 mg PO TID 04/28/24 07/07/24 06/18/24 History promethazine 25 mg tablet 25 mg PO Q6H PRN nausea and 04/28/24 07/07/24 Unknown Rx vomiting #20 tabs diclofenac sodium 75 mg 75 mg PO Q12H PRN pain #20 tabs 06/19/24 07/07/24 Unknown Rx tablet,delayed release propranolol 40 mg tablet 20 mg PO BID 06/19/24 07/07/24 06/18/24 History onabotulinumtoxinA 100 unit See Rx Instructions .Route 06/21/24 07/07/24 Unknown Rx solution for injection (Botox) .COMPLEX #2 ea desvenlafaxine succinate 100 mg 100 mg PO DAILY 07/07/24 07/07/24 Unknown History tablet,extended release 24 hr drospirenone 3 mg-ethinyl 1 tab PO DAILY 07/07/24 07/07/24 Unknown History estradiol 0.02 mg tablet (Loryna (28)) tizanidine 4 mg tablet 4 mg PO Q8H 07/07/24 07/07/24 Unknown History Allergies Allergy/AdvReac Type Severity Reaction Status Date / Time Penicillins Allergy rash Verified 07/02/24 13:53 PFSH Acute 2 PFSH: Medical History Hypertension No pertinent past medical history negx: dm,thyroid,dvt/pe PCP: [facility] Adverse effect of COVID-19 vaccine Cerebral palsy Brain injury at Chronic migraine without aura, intractable, with status migrainosus Foot anomaly, congenital Surgical History History of back surgery at age 13 Hx of release of tendon multiple, most recently was in 2019 S/P matrixectomy of toe Family History Grandmother Diabetes Maternal Hypertension Maternal Stroke Maternal Grandfather Diabetes Maternal Heart disease Paternal Mother Hypertension Denies family history of Colon cancer Ovarian cancer Hypercholesteremia Breast cancer Uterine cancer Thyroid disease Social History Smoking and tobacco/nicotine status: never used tobacco/nicotine Substance/Drug Use: never Do you think of yourself as: Straight/Heterosexual Vitals/I&O/Wt Last Vital Signs Temp 98.0 F 07/07/24 19:11 Pulse 107 H 07/07/24 19:11 Resp 16 07/07/24 20:06 BP 148/89 07/07/24 19:11 Pulse Ox 94 07/07/24 19:11 O2 Del Method Room Air 07/07/24 19:11 07/07/24 07/07/24 07/07/24 06:59 14:59 22:59 Intake Total 1300 / 1300 240 / 1540 Balance 1300 / 1300 240 / 1540 Weight last 48 hrs Weight 193 lb Physical Exam 2 Narrative: General : Patient is well developed, obese, no acute distress, oriented x3 Head : Normal cephalic, a-traumatic. Ears : Pinnae and external canal are normal. Hearing is normal. Eyes : PERRLA, Sclera and injection are normal. No conjunctival discharge. Nose : Mucous membranes are without erythema. Throat : buccal mucosa is normal, gums are without significant recession or hypertrophy. Lungs : Equal chest rise bilaterally, no use of accessory muscles, trachea is midline. Cor : Rate and rhythm are normal. Abdomen : Soft, possible mild distenstion, diffuse tenderness- mostly right- sided, negative Rovsings, no g/r/m Extremities : No edema, no cyanosis or clubbing, dorsalis pedis pulses are present bilaterally, non-tender to palpation of calves. Upper extremities are normal bilaterally. Back : non-tender to palpation, no CVA tenderness. Data 07/07/24 08:30 07/07/24 08:55 A&P Assessment and plan (1) Chronic abdominal pain: (2) Nausea & vomiting: (3) Menometrorrhagia: (4) Spastic diplegic cerebral palsy: (5) Chronic migraine without aura, intractable, with status migrainosus: (6) Anxiety: Plan It is very unlikely this patient has acute appendicitis with at least a 4-month history of abdominal pain nausea and vomiting, with presentation similar to this dating years back and a 6 mm diameter appendix without surrounding inflammation or appendicolith This may possibly be related to nerve pain from her spine possibly related to her cerebral palsy. She also has a history of right ovarian cysts with rupture. I will consult SHOPPING INVESTIGATOR and admit the patient for observation. Repeat labs and possible CT tomorrow. Will hold antibiotics for now Pain control Antinausea medication N.p.o. after midnight Attestations 2 Medical Necessity Statement*: Patient will need at least 1 night in the hospital for observation to rule out acute appendicitis Coding Level of Care Code 87781 Diagnoses Chronic abdominal pain R10.9; G89.29 Nausea & vomiting R11.2 Menometrorrhagia N92.1 Spastic diplegic cerebral palsy G80.1 Chronic migraine without aura, intractable, with status migrainosus G43.711 Anxiety F41.9
[2024-07-08] VITALS (9 sets, daily range): BP systolic 133–167; BP diastolic 80–102; PULSE 90–116; RESP 14–21; TEMP 36.7–37.1; O2SAT 96–98
[2024-07-08] MEDS: ondansetron 2 mg/ML SDV 2 mL 4 MG IVP ×2 (03:14→11:16)
[2024-07-08] MEDS: HYDROmorphone 1 mg/mL INJ 1 mL IVP ×3 (03:15→11:17)
[2024-07-08 06:14] LABS: Basophils # 0.1 10^3/uL (0.0-0.1); Basophils % 0.4 %; Eosinophils # 0.1 10^3/uL (0.0-0.8); Eosinophils % 0.5 %; Hematocrit 38.3 % (36-47); Lymphocytes # 3.3 10^3/uL (0.8-4.8); Lymphocytes % 22.3 %; Mean Corpuscular HGB Conc 34.7 g/dL (30-55); Mean Corpuscular Hemoglobin 30.9 pg (27-33); Mean Corpuscular Volume 88.9 fl (85-98); Mean Platelet Volume 8.5 fL (7.4-10.4); Monocytes # 0.8 10^3/uL (0.2-0.9); Monocytes % 5.7 %; Neutrophils # 10.44 10^3/uL (1.8-7.7); Neutrophils % 70.9 %; Nucleated Red Blood Cells % 0 %; Platelet Count 447 10^3/cmm (157-399); Red Blood Count 4.31 10^6/uL (3.85-5.65); Red Cell Distribution Width 11.8 % (12.1-15.1); White Blood Count 14.73 10^3/uL (3.29-11.43)
[2024-07-08 06:34] LABS: Blood Urea Nitrogen 8 mg/dL (6-20); Calcium 8.7 mg/dL (8.5-10.5); Carbon Dioxide 23 mmol/L (22-29); Chloride 103 mmol/L (98-107); Creatinine Clr Calc Pharmacy 174.8363; Glomerular Filtration Rate 154.3 mL/min (90-130); Glucose 107 mg/dL (65-115); Osmolality Calculated 287 mOsm/kg (285-295); Sodium 139 mmol/L (136-145)
[2024-07-08 06:35] LABS: Anion Gap 16.7 (5-19); Potassium 3.7 mmol/L (3.5-5.1)
--- NOTE | 2024-07-08 07:56 | CT_ITS ---
WS: [id number] CT ABDOMEN AND PELVIS WITH CONTRAST HISTORY: abdominal pain TECHNIQUE: Imaging performed of the abdomen and pelvis with IV contrast. Single phase imaging of the abdomen. Coronal and sagittal reformats are submitted. All CT scans at [facility] use at [address] one of these dose optimization techniques: automated exposure control; mA and/or kV adjustment per patient size (includes targeted exams where dose is matched to clinical indication); or iterative re construction. IV CONTRAST: Omnipaque 350; 100 mL IV. Oral contrast: No DLP: 869.12 mGy.cm COMPARISON: 09/26/2022, 07/07/2024 Lower thorax: Lung bases are clear. Heart is normal size. No hiatal hernia. Liver/biliary system: Normal size with no intrahepatic dilatation. Gallbladder: Increased density in the gallbladder from vicarious excretion from prior contrast CT. Pancreas: Normal size pancreas and pancreatic duct. No adjacent inflammation. Spleen: Normal size spleen. No mass or infarct. Adrenal glands: Normal RIGHT adrenal gland. Calcification associated with the LEFT adrenal gland is u nchanged. Right kidney: Mild atrophy RIGHT kidney with cortical thinning and scarring is chronic. No obstructio n. Left kidney: Normal. Aorta: Normal. Lymphadenopathy: Small lymph nodes in the RIGHT lower quadrant. No adenopathy. Free fluid: None. GI tract: The appendix is visualized and more normal in appearance than on the prior study of 07/07/19 25. There is now air within the appendix and the diameter has decreased to 5 mm. There is less hypere wes and wall irregularity. Otherwise GI tract is negative. Abdominal wall: Unremarkable abdominal wall. No hernia. Pelvis: No free fluid or adenopathy within the pelvis. Small follicles associated with each ovary. Th ere is no cyst or solid mass. No hyperemia or abnormal enhancement. Bones: Unremarkable. CT/CT abdomen pelvis w con* [id number] IMPRESSION: 1. No suspicion for appendicitis on today's exam. There is less wall thickenin g and the appendix as decreased slightly in size and now contains air. 2. No free fluid or free air. 3. No GI tract obstruction. 4. Small bilateral ovarian follicles. 5. No renal obstruction.
[2024-07-08] MEDS: iohexol 350 mg/mL 500 mL Btl (per mL) IV (08:52)
--- NOTE | 2024-07-08 13:24 | P.CONIM_ITS ---
Providers/Reason For Consult 2 Consulting Physician/Specialty*: dr. pringle Reason for Consult*: Persistent pain Requesting Physician: Dr. Pringle Attending Physician: Juan Antonio Pringle DO Primary Care Provider: BLEA Enrique History of Present Illness History of Present Illness Shonna Riojas is a 23 year old female whom I have known for many years. 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 She had previously been treated with heel cord releases on 3 occasions and I am pretty sure I referred her to Dr. Martini for dorsal rhizotomy. I did not see her again until 2018 when she started coming in for chronic migraine and I been treating her with Botox after she tried antidepressants, anticonvulsants and beta- blockers without success. She was first documented to have problems with belly pain when she came to the emergency department in January 2022 and subsequently she had colonoscopy by Dr. Do for that complaint. She thought she had an ovarian cyst in November 2021 and was complaining of severe pain in the left lower quadrant as well as gastritis and increased pain with intercourse. CT showed a 5 cm ovarian cyst. She was back in the ER with abdominal pain, nausea vomiting and diarrhea 09/25/2022 and she was having frequent diarrhea. At that point she had right sided abdominal pain, nausea and vomiting aggravated by eating. In February she complained that her symptoms got worse whenever she had her. Which was only happening once every 6 months. She has been treated with dicyclomine 20 mg 4 times daily for the last 4 years and she has 6 bottles of it in her pill bag. All of the bottles are about half full. She came to me in March 2023 complaining of severe back pain in the left low back radiating down the left leg. Her spastic diplegia was not different. By March 2024 her was having to take care of her. She was no longer able to work. He was having to help her get to the toilet and she was not walking as well. She was having more problems with pain all over and nausea. Because of the patient's complicated neurologic exam from her cerebral palsy I ordered MRI scans of the cervical, thoracic and lumbar spine. Dr. Richardson has seen the patient in consultation and his consult was reviewed. He recommended ongoing follow-up with the [facility]. MRI of the thoracic spine was normal 05/18/2024 MRI of the cervical spine was normal 05/18/2024. MRI LUMBAR SPINE NONCONTRAST 05/18/2024 Prior large bilateral laminectomy defects at L1-2. L1-L2: Normal. L2-L3: Normal. L3-L4: Mild facet arthritis and annular disc bulging. No stenosis. L4-L5: Mild annular disc bulging. Mild facet arthritis. No stenosis. L5-S1: Mild annular disc bulging. No stenosis. Normal paravertebral soft tissues. Mild atrophy of the LEFT kidney with cortical thinning. Similar to the prior study. MR/MR lumbar spine wo con* [id number] IMPRESSION: 1. Postoperative laminectomy defects at L1-2, stable. 2. No significant central or foraminal stenosis. 3. No disc protrusions. Dictated By: Lalita Poole DO DD/ 1213 Review of Systems 2 General: Reports: Other (fatigue) Narrative: - Musculoskeletal: Reports weakness in t he back, neck, and legs; increased muscle spasticity in legs. - Neurological: Reports dizziness, tinni tus, and clonus in legs. - Genitourinary: Reports increased urina ry frequency. - Gastrointestinal: Reports nausea and s tomach disquiet. Const: Denies: fever(s), change in weight or fatigue Eyes: Denies: change in vision, blurry vision, blind spots, photophobia, eye discomfort, seeing flashes or other (Glaucoma) ENMT: Denies: odynophagia, hoarseness, change in hearing, tinnitus, sinus pain or other (Loss of taste/smell) Card: Denies: chest pain, palpitations, syncope or other (Calf cramps) Resp: Denies: dyspnea, non-productive cough, wheezing or hemoptysis GI: Reports: abdominal pain, nausea, vomiting, heartburn and diarrhea; Denies: constipation or hematochezia : Reports: dysuria and urinary frequency; Denies: urinary incontinence Musc: Reports: back pain, extremity pain and muscle weakness; Denies: neck pain or decrease in muscle mass Skin/Breast: Reports: skin pain; Denies: rash Neuro: Reports: headache(s), numbness in extremities and difficulty walking; Denies: weakness in extremities, sensory changes, Slurred speech present or seizure-like activity Psych: Reports: anxiety, depression and difficulty concentrating; Denies: irritability, memory loss or other (Personality changes) Endo: Denies: polyuria, polydipsia, excessive sweating or change in body appearance Madhu/Lymph: Denies: easy bruising, easy bleeding or enlarged lymph nodes Medications/Allergies Home Medications Medication Instructions Recorded Confirmed Last Taken Type pantoprazole 40 mg tablet,delayed 40 mg PO BID #90 tabs 01/21/22 07/07/24 06/18/24 Rx release arm brace #2 ea 06/27/22 07/07/24 Unknown Rx buspirone 5 mg tablet 5 mg PO TID 07/03/23 07/07/24 06/18/24 History gabapentin 300 mg capsule 300 mg PO BID 04/02/24 07/07/24 06/18/24 History diazepam 10 mg tablet (Valium) 10 mg PO .PRN PRN anxiety 3 months 04/08/24 07/07/24 06/18/24 Rx #7 tabs sumatriptan succinate 100 mg 100 mg PO Q2H PRN migraines #30 04/08/24 07/07/24 04/26/24 Rx tablet (Imitrex) tabs dicyclomine 10 mg capsule 10 mg PO TID 04/28/24 07/07/24 06/18/24 History promethazine 25 mg tablet 25 mg PO Q6H PRN nausea and 04/28/24 07/07/24 Unknown Rx vomiting #20 tabs diclofenac sodium 75 mg 75 mg PO Q12H PRN pain #20 tabs 06/19/24 07/07/24 Unknown Rx tablet,delayed release propranolol 40 mg tablet 20 mg PO BID 06/19/24 07/07/24 06/18/24 History onabotulinumtoxinA 100 unit See Rx Instructions .Route 06/21/24 07/07/24 Unknown Rx solution for injection (Botox) .COMPLEX #2 ea desvenlafaxine succinate 100 mg 100 mg PO DAILY 07/07/24 07/07/24 Unknown History tablet,extended release 24 hr drospirenone 3 mg-ethinyl 1 tab PO DAILY 07/07/24 07/07/24 Unknown History estradiol 0.02 mg tablet (Loryna (28)) tizanidine 4 mg tablet 4 mg PO Q8H 07/07/24 07/07/24 Unknown History Allergies Allergy/AdvReac Type Severity Reaction Status Date / Time Penicillins Allergy rash Verified 07/02/24 13:53 Current Medications Generic Name Dose Route Start Last Admin Trade Name Freq PRN Reason Stop Dose Admin Hydromorphone HCl 1 mg 07/07/24 13:21 07/08/24 11:17 Hydromorphone 1 Mg/Ml Inj 1 Ml IVP 1 mg Q3H PRN Administration PAIN Ondansetron HCl 4 mg 07/07/24 13:22 07/08/24 11:16 Ondansetron 2 Mg/Ml Sdv 2 Ml IVP 4 mg Q6H PRN Administration NAUSEA AND VOMITING PFSH Acute 2 PFSH: Medical History Hypertension No pertinent past medical history negx: dm,thyroid,dvt/pe PCP: [facility] Adverse effect of COVID-19 vaccine Cerebral palsy Brain injury at Chronic migraine without aura, intractable, with status migrainosus Foot anomaly, congenital Surgical History History of back surgery at age 13 Hx of release of tendon multiple, most recently was in 2019 S/P matrixectomy of toe Family History Grandmother Diabetes Maternal Hypertension Maternal Stroke Maternal Grandfather Diabetes Maternal Heart disease Paternal Mother Hypertension Denies family history of Colon cancer Ovarian cancer Hypercholesteremia Breast cancer Uterine cancer Thyroid disease Social History Smoking and tobacco/nicotine status: never used tobacco/nicotine Substance/Drug Use: never Do you think of yourself as: Straight/Heterosexual Vitals/I&O/Wt Last Vital Signs Temp 98.7 F 07/08/24 11:56 Pulse 94 07/08/24 11:56 Resp 15 07/08/24 11:56 BP 167/98 07/08/24 11:56 Pulse Ox 96 07/08/24 11:56 O2 Del Method Room Air 07/08/24 11:56 07/07/24 07/08/24 07/08/24 22:59 06:59 14:59 Intake Total 240 / 1540 0 / 1540 Balance 240 / 1540 0 / 1540 Weight last 48 hrs Weight 195 lb 6.4 oz Weight 193 lb Physical Exam 2 Narrative: Pleasant young woman who was standing at the bedside because she felt she got some relief by standing up. She was marching from the bathroom to the bedside and I had to examine her briefly as she was very restless and moving about. She was tender in every location that I touched her including the neck, trapezius, stroking the skin and any location on her body. After I touched her back she said that she needed some pain medicine. She has bilateral scars from her heel cord surgeries. She has a scar in her mid back from previous back surgery that I think was related to her dorsal rhizotomy. She was able to walk independently. She has foot deformities and does not pick her feet up well. 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 She was actually doing extremely well in the last several years with a lot of improvement while she was working. Unfortunately her chronic pelvic pain that she complained of as far back as 2021 in the records as become progressively more severe over time. She is tender all over consistent with fibromyalgia. At this point I think it would be beneficial to stop dicyclomine as it may be having a paradoxical reaction at this point. It looks like she has been taking a lot of it is she has 6 bottles and most of them are at least half empty or more. Similarly diclofenac could be aggravating her irritable bowel and I would recommend that that be stopped. It is comforting that she has already had imaging studies of her entire neuro axis and that was done because the patient has multiple findings on exam and she is often difficult to draw conclusions as she has chronic anxiety in addition to her cerebral palsy. She is not a candidate for physical therapy currently but that something we might think about long-term. She would like to go home today. Increase gabapentin 600 mg 3 times a day for pain and I will make an appointment in my office to see her about her chronic pain. Dr. Sood and Dr. Pringle comanaging the patient and grateful for their care. (2) Fibromyalgia: (3) Anxiety: (4) Chronic abdominal pain: Coding Level of Care Code Acute Code for Chg Fwd Diagnoses Spastic diplegic cerebral palsy G80.1 Fibromyalgia M79.7 Anxiety F41.9 Chronic abdominal pain R10.9; G89.29
[2024-07-08] MEDS: gabapentin 300 mg Capsule 600 MG PO (14:13)
--- NOTE | 2024-07-08 15:25 | P.DS_ITS ---
Discharge Providers Date of Admission: 07/07/24 11:22 Date of Discharge: July 08, 2024 Attending Provider at Admission: Juan Antonio Pringle DO Attending Provider at Discharge: Juan Antonio Pringle DO Primary Care Provider: BELA Enrique Diagnoses at Discharge Discharge Diagnosis (1) Spastic diplegic cerebral palsy: Status: Acute (2) Fibromyalgia: Status: Acute (3) Anxiety: Status: Acute (4) Chronic abdominal pain: Status: Chronic Reason for Visit Reason for Visit: right side abdominal pain Hospital Course Hospital Course Pleasant 83-year-old female presented to the hospital with chronic right-sided abdominal pain nausea and vomiting. She has cerebral palsy with spastic diplegia of her lower extremities. CT of the abdomen pelvis was concerning for possible early acute appendicitis. She was admitted for observation. Clinically, I did not think that she had appendicitis as she had had nearly daily symptoms for the past few months, reportedly. Repeat CT confirms she did not have appendicitis. Gynecology was consulted for pelvic pain and recommended outpatient follow-up. I felt that her symptoms were coming from her spine and in a dermatomal distribution, from the lower back towards the umbilicus. Light touch of her abdominal wall elicited the pain and light touch up to the right side of her lower back made the pain even worse than that. I consulted neurology who increased her gabapentin. Patient was discharged home in good condition Physical Exam Narrative: General : Patient is well developed , no acute distress, oriented x3 Head : Normal cephalic, a-traumatic. Ears : Pinnae and external canal are normal. Hearing is normal. Eyes : PERRLA, Sclera and injection are normal. No conjunctival discharge. Nose : Mucous membranes are without erythema. Throat : buccal mucosa is normal, gums are without significant recession or hypertrophy. Lungs : Equal chest rise bilaterally, no use of accessory muscles, trachea is midline. Cor : Rate and rhythm are normal. Abdomen : Soft, ND, tender to light touch of the abdominal skin on the right hemiabdomen and the skin of the right lower back no g/r/m Extremities : No edema, no cyanosis or clubbing, dorsalis pedis pulses are pre sent bilaterally, non-tender to palpation of calves. Upper extremities are normal bilaterally. Back : non-tender to palpation, no CVA tenderness. Discharge Data Studies Completed and Pending Completed Studies During Hospitalization Category Date Time Status CT abdomen pelvis w con* [id number] Routine Cat Scan 07/08/24 07:[address] abdomen pelvis w con* [id number] Stat Cat Scan 07/07/24 08:29 Completed XR chest 1V portable [id number] Stat Exams 07/07/24 08:09 Completed Pending at discharge Category Date Time Status CBC Auto Diff [Complete Blood Count w/Auto] AM LABS Lab 07/09/24 04:00 Ordered CBC Auto Diff [Complete Blood Count w/Auto] AM LABS Lab 07/10/24 04:00 Ordered Radiology Impressions Chest X-Ray 07/07/24 08:09 Impression: Negative chest. Abdomen/Pelvis CT 07/08/24 07:56 IMPRESSION: 1. No suspicion for appendicitis on today's exam. There is less wall thickening and the appendix as decreased slightly in size and now contains air. 2. No free fluid or free air. 3. No GI tract obstruction. 4. Small bilateral ovarian follicles. 5. No renal obstruction. Laboratory Results WBC 14.73 10^3/uL (3.29-11.43) H 07/08/24 05:47 RBC 4.31 10^6/uL (3.85-5.65) 07/08/24 05:47 Hgb 13.30 g/dL (11.27-16.99) 07/08/24 05:47 Hct 38.3 % (36-47) 07/08/24 05:47 MCV 88.9 fl (85-98) D 07/08/24 05:47 MCH 30.9 pg (27-33) 07/08/24 05:47 MCHC 34.7 g/dL (30-55) D 07/08/24 05:47 RDW 11.8 % (12.1-15.1) L 07/08/24 05:47 Plt Count 447 10^3/cmm (157-399) H 07/08/24 05:47 MPV 8.5 fL (7.4-10.4) 07/08/24 05:47 Neut % (Auto) 70.9 % 07/08/24 05:47 Lymph % (Auto) 22.3 % 07/08/24 05:47 [place] % (Auto) 5.7 % 07/08/24 05:47 Eos % (Auto) 0.5 % 07/08/24 05:47 Baso % (Auto) 0.4 % 07/08/24 05:47 Neut # (Auto) 10.44 10^3/uL (1.8-7.7) H 07/08/24 05:47 Lymph # (Auto) 3.3 10^3/uL (0.8-4.8) 07/08/24 05:47 [place] # (Auto) 0.8 10^3/uL (0.2-0.9) 07/08/24 05:47 Eos # (Auto) 0.1 10^3/uL (0.0-0.8) 07/08/24 05:47 Baso # (Auto) 0.1 10^3/uL (0.0-0.1) 07/08/24 05:47 Nucleated RBC % (auto) 0 % 07/08/24 05:47 Nucleated RBCs # 0.0 /100WBC 07/08/24 05:47 Sodium 139 mmol/L (136-145) 07/08/24 05:47 Potassium 3.7 mmol/L (3.5-5.1) 07/08/24 05:47 Chloride 103 mmol/L (98-107) 07/08/24 05:47 Carbon Dioxide 23 mmol/L (22-29) 07/08/24 05:47 Anion Gap 16.7 (5-19) 07/08/24 05:47 BUN 8 mg/dL (6-20) 07/08/24 05:47 Creatinine 0.5 mg/dL (0.5-0.9) 07/08/24 05:47 GFR Calculation 154.3 mL/min (90-130) H 07/08/24 05:47 Glucose 107 mg/dL (65-115) 07/08/24 05:47 Calculated Osmolality 287 mOsm/kg (285-295) 07/08/24 05:47 Lactic Acid 2.7 mmol/L (0.5-2.2) H 07/07/24 08:55 Lactic Acid (Sepsis) 1.3 mmol/L (0.5-2.2) 07/07/24 12:57 Calcium 8.7 mg/dL (8.5-10.5) 07/08/24 05:47 Total Bilirubin 0.9 mg/dL (0.15-1.2) 07/07/24 08:55 AST 17 U/L (0-32) 07/07/24 08:55 ALT 22 U/L (0-33) 07/07/24 08:55 Alkaline Phosphatase 72 U/L (35-105) 07/07/24 08:55 Total Protein 8.5 g/dL (6.6-8.7) 07/07/24 08:55 Albumin 4.2 g/dL (3.5-5.2) 07/07/24 08:55 Globulin 4.3 g/dL (1.3-4.6) 07/07/24 08:55 HCG, Qual Negative (Negative) 07/07/24 08:55 Urine Color [place] (Yellow) A 07/07/24 08:34 Urine Appearance Cloudy (CLEAR) A 07/07/24 08:34 Urine pH 7.5 (5-7) 07/07/24 08:34 Ur Specific [place] 1.023 (1.005-1.030) 07/07/24 08:34 Urine Protein 2+ (Negative) A 07/07/24 08:34 Urine Glucose (UA) Negative (Normal) 07/07/24 08:34 Urine Ketones 3+ (Negative) H 07/07/24 08:34 Urine Blood Negative (Negative) 07/07/24 08:34 Urine Nitrate Negative (Negative) 07/07/24 08:34 Urine Bilirubin Negative (Negative) 07/07/24 08:34 Urine Urobilinogen 1.0 mg/dL (Negative) 07/07/24 08:34 Ur Leukocyte Esterase Negative (Negative) 07/07/24 08:34 Urine RBC 3-5 /hpf (0-2) 07/07/24 08:34 Urine WBC 0-5 /hpf (0-5) 07/07/24 08:34 Ur Squamous Epith Cells 11-20 /hpf (0-5) H 07/07/24 08:34 Amorphous Sediment Not Reportable 07/07/24 08:34 Urine Bacteria 2+ /hpf (NONE) H 07/07/24 08:34 Hyaline Casts 0.81 /lpf 07/07/24 08:34 Urine Opiates Screen Positive ng/mL (Negative) H 07/07/24 08:34 Ur Barbiturates Screen Negative ng/mL (Negative) 07/07/24 08:34 Ur Phencyclidine Scrn Negative ng/mL (Negative) 07/07/24 08:34 Ur Amphetamines Screen Negative ng/mL (Negative) 07/07/24 08:34 U Benzodiazepines Scrn Negative ng/mL (Negative) 07/07/24 08:34 Urine Cocaine Screen Negative ng/mL (Negative) 07/07/24 08:34 U Marijuana (THC) Screen Positive ng/mL (Negative) H 07/07/24 08:34 Procedures Performed None Vitals Last Vital Signs Temp 98.7 F 07/08/24 11:56 Pulse 94 07/08/24 11:56 Resp 15 07/08/24 11:56 BP 167/98 07/08/24 11:56 Pulse Ox 96 07/08/24 11:56 O2 Del Method Room Air 07/08/24 11:56 Discharge Plan Discharge Patient Disposition: Home Condition: Stable Prescriptions: New gabapentin 600 mg tablet 600 mg PO TID Qty: 90 11RF Continued (DME) arm brace Misc See Rx Instructions .Route Qty: 2 0RF Rx Instructions: As directed buspirone 5 mg tablet 5 mg PO TID diazepam [Valium] 10 mg tablet 10 mg PO .PRN PRN (Reason: anxiety) 90 Days Qty: 7 2RF Rx Instructions: As needed for Botox sumatriptan succinate [Imitrex] 100 mg tablet 100 mg PO Q2H PRN (Reason: migraines) Qty: 30 3RF Botox 100 unit recon soln See Rx Instructions .ROUTE .COMPLEX Qty: 2 0RF Dose Instruction: Inject 155 units IM-31 sites, 5 units/site per FDA protocol: in procerus, in bilateral 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 machine operator, frontalis (2 sites bilaterally),temporalis (4 sites bilateral), occipitalis (3 sites bilateral), paraspinosus cervical bilaterally (2 injections), trapezius (3 sites bilateral) Rx Instructions: Inject 155 units IM-31 sites, 5 units/site per FDA protocol: in procerus, in bilateral 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 machine operator, frontalis (2 sites bilaterally),temporalis (4 sites bilateral), occipitalis (3 sites bilateral), paraspinosus cervical bilaterally (2 injections), trapezius (3 sites bilateral) dicyclomine 10 mg capsule 10 mg PO TID promethazine 25 mg tablet 25 mg PO Q6H PRN (Reason: nausea and vomiting) Qty: 20 0RF propranolol 40 mg tablet 20 mg PO BID Rx Instructions: TAKE 1/2 TABLET BY MOUTH TWICE DAILY diclofenac sodium 75 mg tablet,delayed release (DR/EC) 75 mg PO Q12H PRN (Reason: pain) Qty: 20 0RF tizanidine 4 mg tablet 4 mg PO Q8H drospirenone-ethinyl estradiol [Loryna (28)] 3-0.02 mg tablet 1 tab PO DAILY desvenlafaxine succinate 100 mg tablet extended release 24 hr 100 mg PO DAILY pantoprazole 40 mg tablet,delayed release (DR/EC) 40 mg PO BID Qty: 90 8RF Discontinued gabapentin 300 mg capsule 300 mg PO BID Discharge Orders: Discharge Order (Routine); Ordered 07/08/24 Ordered By: Juan Antonio Pringle Referrals: Magnus Jiang DROP HAMMER MECHANIC [Primary Care Provider] - 4-7 days Discharge Diet: Advance as tolerated Discharge Activity: Resume usual activity Patient Instructions: Acute Wound Care (DC), Opioid Safety, Post Anesthesia Care Discharge Attestations Time Spent in Discharge Care*: less than 30 min Quality Metrics Clinical Quality Measures [ No reported AMI, CVA or VTE this stay] Coding Level of Care Code Acute Code for Chg Fwd Diagnoses Spastic diplegic cerebral palsy G80.1 Fibromyalgia M79.7 Anxiety F41.9 Chronic abdominal pain R10.9; G89.29
== END 2024-07-08 19:00 | disposition home or self-care (01) ==
LOC: ER 10:48 → MEDSURG 12:42
PROVIDERS: Admitting Provider Surgery; Emergency Provider Family Medicine; PCP Nurse Practitioner; Visit Provider Surgery
DX: G80.1 Spastic diplegic cerebral palsy (principal); M79.7 Fibromyalgia; F41.9 Anxiety disorder, unspecified; G89.29 Other chronic pain; R10.9 Unspecified abdominal pain; I10 Essential (primary) hypertension; N83.209 Unspecified ovarian cyst, unspecified side
CPT/HCPCS: 36415; 71045; 74177; 80048; 80053; 80306; 81001; 83605; 84703; 85025; 96365; 96367; 96375; 96376; 99285; G0378; J0744; J0780; J1171; J1885; J2270; J2405; J3490; J7030

== ENCOUNTER → 2024-08-05 10:51 | Outpatient (BNVA) | payer MEDICARE, SELFPAY | PROVIDERS: PCP Nurse Practitioner; Visit Provider Specialist | DX: M79.7 Fibromyalgia (principal); G80.1 Spastic diplegic cerebral palsy; G43.711 Chronic migraine without aura, intractable, with status migrainosus; G25.0 Essential tremor; F41.8 Other specified anxiety disorders; F41.9 Anxiety disorder, unspecified | CPT/HCPCS: 99214 ==

== ENCOUNTER → 2024-08-13 14:05 | Outpatient (BNVA) | payer MEDICARE, SELFPAY | PROVIDERS: PCP Nurse Practitioner; Visit Provider Obstetrics & Gynecology | DX: R10.2 Pelvic and perineal pain (principal) | CPT/HCPCS: 87624 ==

== ENCOUNTER → 2024-08-24 13:11 | Outpatient (BNVA) | payer MEDICARE, SELFPAY | PROVIDERS: PCP Nurse Practitioner; Visit Provider Obstetrics & Gynecology | DX: R10.2 Pelvic and perineal pain (principal) | CPT/HCPCS: 76830 ==

== ENCOUNTER → 2024-09-03 15:04 | Outpatient (BNVA) | payer MEDICARE, SELFPAY | PROVIDERS: PCP Nurse Practitioner; Visit Provider Obstetrics & Gynecology | DX: Z30.430 Encounter for insertion of intrauterine contraceptive device (principal) | CPT/HCPCS: 81025 ==

== ENCOUNTER → 2024-10-08 13:44 | Outpatient (BNVA) | payer MEDICARE, SELFPAY | PROVIDERS: PCP Nurse Practitioner; Visit Provider Specialist | DX: G43.711 Chronic migraine without aura, intractable, with status migrainosus (principal) | CPT/HCPCS: 64615; J9999 ==

== ENCOUNTER → 2024-12-15 14:03 | Outpatient (BNVA) | payer MEDICARE, SELFPAY | PROVIDERS: PCP Nurse Practitioner; Visit Provider Specialist | DX: G43.711 Chronic migraine without aura, intractable, with status migrainosus (principal); G80.1 Spastic diplegic cerebral palsy; G25.0 Essential tremor; M79.7 Fibromyalgia | CPT/HCPCS: 99213 ==

== ENCOUNTER → 2025-01-06 13:44 | Outpatient (BNVA) | payer MEDICARE, SELFPAY | PROVIDERS: PCP Nurse Practitioner; Visit Provider Specialist | DX: G43.711 Chronic migraine without aura, intractable, with status migrainosus (principal) | CPT/HCPCS: 64615; J9999 ==

== ENCOUNTER 2025-01-18 10:46 | Emergency (ER) | payer MEDICARE, MEDICAID, SELFPAY ==
[2025-01-18] VITALS (7 sets, daily range): BP systolic 146–167; BP diastolic 104–120; PULSE 95–104; RESP 19–96; TEMP 36.8; O2SAT 95–98
--- OUTSIDE RECORDS SUMMARY | 2025-01-18 10:57 | XMS_ITS | Encounter Summary ---
Author Organization [facility] Address [address] [place] [address] Care Team Providers Care Vice President Quality Assurance Name Role Phone Julien Giles Primary Care Provider [phone] Reason for Referral * Outpatient Services (Routine) - Closed Specialty Diagnoses / Procedures Referred By Joss sewell Referred To Contact Diagnoses Migraines Cerebral palsy, unspecified type (CMS/HCC) Procedures MRI BRAIN W WO CONTRAST Julien Giles PA [address] [facility] [address] [place] [address] Phone: tel: fax: [facility] [place] CALL TO MAKE APPOINTMENT ONLY [address] [place] [address] Phone: tel: fax: Referral ID Status Reason Start Date Expiration Date V isits Requested Visits Authorized [id number] [place] [facility] [place] [facility] [place] [place] 08/28/2016 09/27/2016 1 1 Encounter Details Date Type Department Care Team (Latest Contact Info) Description 08/27/2016 Ancillary Orders [facility] [place] CALL TO MAKE APPOINTMENT ONLY [address] [place] [address] Julien Giles PA [address] [facility] [address] [place] [address] Migraines; Cerebral palsy, unspecified type (CMS/HCC) Social History Tobacco Use Types Packs/Day Years Used Date Smoking Tobacco: Never Comments Unknown Sex and Gender Information Value Date Recorded Sex Assigned at Not on file Legal 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 Exam: MRI BRAIN W WO CONTRAST Date/Time of Exam: 09/09/2016 2:00 PM Reason For Exam: Migraines,Cerebral palsy, unspecified type. Technique: MRI of the brain was performed prior to and following the administration of intravenous contrast. Contrast: 12 mL MultiHance Findings: The sagittal midline images show mild thinning of the posterior body of the corpus callosum. The brain shows mild signal changes in the cerebral white matter of the parietal lobes with white matter volume loss. No masses or abnormal fluid collections are present. Susceptibility weighted imaging shows no intracranial hemorrhages or abnormal calcifications. The intracranial flow voids and ventricles appear normal. Postcontrast images show no sites of abnormal enhancement. The meninges appear normal. The paranasal sinuses are clear. The skull base is unremarkable. IMPRESSION: 1. 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 2. No acute or active disease is seen. Narrative Procedure Note Damian Price MD - 09/09/2016 IMPRESSION IMPRESSION: Please see below. Exam: MRI BRAIN W WO CONTRAST Date/Time of Exam: 09/09/2016 2:00 PM Reason For Exam: Migraines,Cerebral palsy, unspecified type. Technique: MRI of the brain was performed prior to and following the administration of intravenous contrast. Contrast: 12 mL MultiHance Findings: The sagittal midline images show mild thinning of the posterior body of the corpus callosum. The brain shows mild signal changes in the cerebral white matter of the parietal lobes with white matter volume loss. No masses or abnormal fluid collections are present. Susceptibility weighted imaging shows no intracranial hemorrhages or abnormal calcifications. The intracranial flow voids and ventricles appear normal. Postcontrast images show no sites of abnormal enhancement. The meninges appear normal. The paranasal sinuses are clear. The skull base is unremarkable. IMPRESSION: 1. 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 2. No acute or active disease is seen. Julien PARDO MR ORDERABLES Final Result documented in this encounter Visit Diagnoses Diagnosis Migraines Migraine, unspecified, without mention of intractable migraine without mention of status migrainosus Cerebral palsy, unspecified type (CMS/HCC) Migraines Migraine, unspecified, without mention of intractable migraine without mention of status migrainosus Cerebral palsy, unspecified type (CMS/HCC) documented in this encounter Care Teams Vice President Quality Assurance Relationship Specialty Start Date End Date Julien Giles PA [address] [address] PCP - General Physician Nutritional Services Director 07/24/16 documented as of this encounter
--- OUTSIDE RECORDS SUMMARY | 2025-01-18 10:57 | XMS_ITS | Encounter Summary ---
Author Organization [facility] Address [address] [place] [address] Care Team Providers Care Supervisor Cell Operation Name Role Phone Julien Giles Primary Care Provider Encounter Details Date Type Department Care Team (Latest Contact Info) Description 01/06/2004 Outpatient Historical [facility] 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
--- OUTSIDE RECORDS SUMMARY | 2025-01-18 10:57 | XMS_ITS | Encounter Summary ---
Author Organization [facility] Address [address] [place] [address] Care Team Providers Care Garment Tag Stringer Name Role Phone Julien Giles Primary Care Provider [phone] Encounter Details Date Type Department Care Team (Latest Contact Info) Description 08/30/2004 Outpatient Historical [facility] 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
--- OUTSIDE RECORDS SUMMARY | 2025-01-18 10:57 | XMS_ITS | Clinical Summary ---
Author Organization [facility] Address [address] [facility] Attn: [place] [address] Care Team Providers Care Mechanical Reliability Engineer Name Role Phone Julien Giles Primary Care Provider [phone] Allergies Active Allergy Reactions Criticality Noted Date Comments Penicillins Hives,Shortness of Breath/Wheezing,Swelling,Abdominal Pain High 10/19/2007 Medications baclofen (LIORESAL) 10 mg tablet Take 10 mg by mouth 3 times daily. 04/06/2019 Active propranoloL (INDERAL) 40 mg tablet Take 40 mg by mouth 2 times daily. 04/06/2019 Active topiramate (TOPAMAX) 25 mg tablet Take 25 mg by mouth daily at bedtime. 04/06/2019 Active venlafaxine (EFFEXOR) 37.5 mg tablet Take 37.5 mg by mouth daily at bedtime. 04/06/2019 Active ondansetron (ZOFRAN) 4 mg Tablet Take 4 mg by mouth every 8 hours as needed for Nausea/Emes is. 04/19/2019 Active melatonin 5 mg Tablet Take 5 mg by mouth daily at bedtime. 04/19/2019 Active SUMAtriptan (IMITREX) 25 mg tablet Take 25 mg by mouth every 2 hours as needed for Other (See Comment). may repeat in 2 hours; max dose 200mg in 24 hours 04/06/2019 Active diclofenac sodium (VOLTAREN) 50 mg Tablet, Delayed Release (E.C.) Take 50 mg by mouth 2 times daily. 04/19/2019 Active cetirizine (ZyrTEC) 10 mg tablet Take 10 mg by mouth daily java project manager. 04/19/2019 Active norgestrel-ethin yl estradiol (CRYSELLE, 28, ORAL) Take 1 Tablet by mouth daily at bedtime. 04/06/2019 Active citalopram (CeleXA) 10 mg tablet Take 10 mg by mouth daily at bedtime. 04/19/2019 Active venlafaxine (EFFEXOR) 75 mg tablet Take 75 mg by mouth daily at bedtime. 04/06/2019 Active diazePAM (VALIUM) 10 mg tablet Take 10 mg by mouth every 8 hours as needed for Other (See Comment) (only for procedures) . 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 Immunizations Immunization Administration Dates Next Due (M-M-R II/PRIORIX)(12 MO UP) MEASLES, MUMPS AND RUBELLA VIRUS VACCINE, 0.5 ML IM/SUBCUT 12/22/2002 (PNEUMOVAX 23)(50 YRS UP) PN EUMOCOCCAL POLYSACCHARIDE (PPV23) 0.5 ML, IM 04/19/2002 (VARIVAX)(12 MOS UP)VARICELL A VIRUS VACCINE (PF) 0.5 ML, SUB CUT 04/09/2005 Dt Dtp Dtap Vaccine 09/11/2006, 3,06/17/2002,04/19,02/10/2002 HIB, Unspecified Formulation 06/17/2002,04/19/20 02,02/10/2002 Hepatitis B Vaccine 12/22/2002,04/19/2002,2001 IPV/OPV 09/11/2006, 3,06/17/2002,04/19,02/10/2002 Influenza Seasonal Unspecifi ed Formulation IM 03/29/2019,05/23/2003 Pneumococcal 7-valent conjug ate vaccine IM 06/17/2002,02/10/2002 Family History Medical History Relation Name Comments Diabetes Maternal Grandmother Asia Hypertension Maternal Grandmother Asia Migraines Mother Ganesh Relation Name Status Comments Father Dillon Alive little to no co ntact Maternal Grandfather Mateo Alive Maternal Grandmother Asia Alive Mother Tenaya Alive Sister Linnette Alive Social History Tobacco Use Types Packs/Day Years Used Date Smoking Tobacco: Never Smokeless Tobacco: Never Alcohol Use Standard Drinks/Week Comments Never 0 (1 standard drink = 0.6 oz pur e alcohol) Comments Unknown Sex and Gender Information Value Date Recorded Sex Assigned at Not on file Legal Sex Female 1:40 PM PHILANTHROPY OFFICER Gender Identity Not on file Sexual Orientation Not on file Last Filed Vital Signs Vital Sign Reading Time Taken Comments Blood Pressure 117/77 07/16/2019 10:14 AM PHILANTHROPY OFFICER Pulse 101 07/16/2019 10:14 AM PHILANTHROPY OFFICER Temperature 36.1 C (97 F) 05/05/2019 9:15 AM PHILANTHROPY OFFICER Respiratory Rate 18 05/05/2019 9:25 AM PHILANTHROPY OFFICER Oxygen Saturation - - Inhaled Oxygen Concentration - - Weight 75 kg (165 lb 6.4 oz) 07/16/2019 10:14 AM PHILANTHROPY OFFICER Height 152.4 cm (5') 06/17/2019 10:10 AM PHILANTHROPY OFFICER Body Mass Index - - Plan of Treatment Health Maintenance Due Date Last Done Comments CHLAMYDIA SCREENING (ANNUAL) 11-24 YEARS 2012 DTAP/TDAP/TD VACCINES (6 - Tdap) 2012 09/11/2006, 12/22/2002, 06/17/2002, Additional history exists HPV VACCINES (1 - 3-dose series) 2016 CERVICAL CANCER SCREENING 2022 HPV/Cotest (21-29) 2022 PAP SMEAR 2022 INFLUENZA VACCINE (#1) 2025 03/29/2019, 2002 HEPATITIS B VACCINES Completed 12/22/2002, 04/19/2002, 02/10/2002 Insurance * Guarantor: ANDIE MENDOZA Account Type Relation to Patient Date of Phone Billing Address Personal/Family [address] [place] [id number] RX INFOCROSSING Medicaid Advance Directives For more information, please contact: [phone] Documents on File Type Date Recorded Patient Manager Of Distribution Expl anation Advance Directive POA 04/21/2019 7:19 AM L egal Guardianship papers Care Teams Mechanical Reliability Engineer Relationship Specialty Start Date End Date Julien Giles PA [address] [place] [id number] PCP - General Physician Automotive Collision Repair Instructor 07/24/16
--- OUTSIDE RECORDS SUMMARY | 2025-01-18 10:57 | XMS_ITS | Encounter Summary ---
Author Organization [facility] Address [address] [place] [address] Care Team Providers Care Installation Manager Name Role Phone Julien Giles Primary Care Provider [phone] Encounter Details Date Type Department Care Team (Latest Contact Info) Description 03/28/2004 Outpatient Historical [facility] 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
--- OUTSIDE RECORDS SUMMARY | 2025-01-18 10:57 | XMS_ITS | Encounter Summary ---
Author Organization [facility] Address [address] [place] [address] Care Team Providers Care Stress Analyst Name Role Phone Julien Giles Primary Care Provider [phone] Encounter Details Date Type Department Care Team (Latest Contact Info) Description 08/30/2004 Outpatient Historical [facility] 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
--- OUTSIDE RECORDS SUMMARY | 2025-01-18 10:57 | XMS_ITS | Encounter Summary ---
Author Organization [facility] Address [address] [place] [address] Care Team Providers Care Stock Driver Name Role Phone Julien Giles Primary Care Provider [phone] Encounter Details Date Type Department Care Team (Latest Contact Info) Description 01/06/2004 Outpatient Historical [facility] 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
--- OUTSIDE RECORDS SUMMARY | 2025-01-18 10:57 | XMS_ITS | Clinical Summary ---
Author Organization [facility] Address [address] [place] [address] Phone Care Team Providers Care Filament Maker Name Role Phone Julien Giles Primary Care Provider [phone] Allergies Active Allergy Reactions Criticality Noted Date Comments Penicillins Hives,Shortness of Breath/Wheezing,Swelling,Abdominal Pain High 10/19/2007 Medications Miscellaneous Medical Supply Misc Misc by [facility]Non-Dr ug; Combo Route) route. Cam Walker non articulated. 1 Each 0 06/27/2009 Active SUMAtriptan (IMITREX) 25 mg tablet Take 25 mg by mouth every 2 hours as needed for Other (See Comment). may repeat in 2 hours; max dose 200mg in 24 hours Active norgestrel-ethi nyl estradiol (CRYSELLE, 28, ORAL) Take 1 Tablet by mouth daily at bedtime. Active venlafaxine (EFFEXOR) 37.5 mg tablet Take 37.5 mg by mouth daily at bedtime. Active venlafaxine (EFFEXOR) 75 mg tablet Take 75 mg by mouth daily at bedtime. Active topiramate (TOPAMAX) 25 mg tablet Take 25 mg by mouth daily at bedtime. Active propranolol (INDERAL) 40 mg tablet Take 40 mg by mouth 2 times daily. Active baclofen (LIORESAL) 10 mg tablet Take 10 mg by mouth 3 times daily. Active diazePAM (VALIUM) 10 mg tablet Take 10 mg by mouth every 8 hours as needed for Other (See Comment) (only for procedures). Active ondansetron (ZOFRAN) 4 mg Tablet Take 4 mg by mouth every 8 hours as needed for Nausea/Emesi s. Active diclofenac sodium (VOLTAREN) 50 mg Tablet, Delayed Release (E.C.) Take 50 mg by mouth 2 times daily. Active cetirizine (ZyrTEC) 10 mg tablet Take 10 mg by mouth daily oracle webcenter consultant. Active citalopram (CeleXA) 10 mg tablet Take 10 mg by mouth daily at bedtime. Active melatonin 5 mg Tablet Take 5 mg by mouth daily at bedtime. Active ibuprofen (MOTRIN) 600 mg tablet Take 1 Tablet (600 mg) by mouth every 6 hours as needed for Pain, Mild. 30 Tablet 04/21/2019 3:54 PM SEROLOGY TECHNICIAN 04/21/2019 Active ibuprofen (MOTRIN) 400 mg tablet Take 2 Tablets (800 mg) by mouth every 6 hours as needed for Pain, Mild. 30 Tablet 05/05/2019 9:36 AM SEROLOGY TECHNICIAN 05/05/2019 Active Active Problems Problem Noted Date Diagnosed [...] = 0.6 oz pur e alcohol) Comments No Sex and Gender Information Value Date Recorded Sex Assigned at Not on file Legal Sex Female 2:48 AM SEROLOGY TECHNICIAN Gender Identity Not on file Sexual Orientation Not on file Last Filed Vital Signs Vital Sign Reading Time Taken Comments Blood Pressure 117/77 07/16/2019 10:14 AM SEROLOGY TECHNICIAN Pulse 101 07/16/2019 10:14 AM SEROLOGY TECHNICIAN Temperature 36.1 C (97 F) 05/05/2019 9:15 AM SEROLOGY TECHNICIAN Respiratory Rate 18 05/05/2019 9:25 AM SEROLOGY TECHNICIAN Oxygen Saturation 95% 05/05/2019 9:25 AM SEROLOGY TECHNICIAN Inhaled Oxygen Concentration - - Weight 75 kg (165 lb 6.4 oz) 07/16/2019 10:14 AM SEROLOGY TECHNICIAN Height 152.4 cm (5') 06/17/2019 10:10 AM SEROLOGY TECHNICIAN Body Mass Index - - Plan of [...] B VACCINES Completed 12/22/2002, 04/19/2002, 02/10/2002 Insurance RX INFOCROSSING Medicaid [employer] MEDICAID PENDING SALE TO [facility] MEDICA[employer] Advance Directives For more information, please contact: [phone] Documents on File Type Date Recorded Patient Blasting Machine Operator Expl anation Advance Directive POA 04/21/2019 7:19 AM L egal Guardianship papers * Full Code (Latest Code Status on File) Date Activated Date Inactivated Comments 05/05/2019 7:02 AM 05/05/2019 8:30 AM * Full Code Date Activated Date Inactivated Comments 04/21/2019 7:57 AM 04/21/2019 12:18 PM * Full Code Date Activated Date Inactivated Comments 05/31/2009 8:01 AM 05/31/2009 3:59 PM * Full Code Date Activated Date Inactivated Comments 05/31/2009 6:06 AM 05/31/2009 8:01 AM * Full Code Date Activated Date Inactivated Comments 07/14/2008 10:11 AM 07/14/2008 2:01 PM Care Teams Filament Maker Relationship Specialty Start Date End Date Julien Giles PA [address] [id number] PCP - General Physician Stand Up Forklift Operator 07/24/16
--- OUTSIDE RECORDS SUMMARY | 2025-01-18 10:57 | XMS_ITS | Encounter Summary ---
Author Organization [facility] Address [address] [place] [address] Care Team Providers Care Distillation Operator Helper Name Role Phone Julien Giles Primary Care Provider [phone] Encounter Details Date Type Department Care Team (Latest Contact Info) Description 12/23/2003 Outpatient Historical [facility] [address] [place] [phone] Gerber Piña MD [address] [facility] [address] [place] [phone] Routine child health exam (Primary Dx) Social History Tobacco Use Types Packs/Day Years Used Date Smoking Tobacco: Never Assessed Comments Unknown Sex and Gender Information Value Date Recorded Sex Assigned at Not on file Legal Sex Female 2:48 AM HAND SPLITTER Gender Identity Not on file Sexual Orientation Not on file documented as of this encounter Plan of Treatment Not on file documented as of this encounter Visit Diagnoses Diagnosis Routine child health exam- Primary Routine or child health check documented in this encounter Care Teams Distillation Operator Helper Relationship Specialty Start Date End Date Julien Giles PA [address] [facility] [address] [place] [address] PCP - General Physician Conductor Sleeping Car 07/24/16 documented as of this encounter
--- OUTSIDE RECORDS SUMMARY | 2025-01-18 10:57 | XMS_ITS | Encounter Summary ---
Author Organization [facility] Address [address] [place] [address] Care Team Providers Care Staff Appraiser Name Role Phone Julien Giles Primary Care Provider [phone] Encounter Details Date Type Department Care Team (Latest Contact Info) Description 03/28/2004 Outpatient Historical [facility] 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
--- NOTE | 2025-01-18 11:03 | W.ED.ABDPA2 ---
Documented by User: EDVIN Mckay 01/18/25 14:25 HPI - Abdominal Pain General: Chief Complaint: Abdominal Pain Stated Complaint: exteme abd pain, doc sent Time Seen by Provider: 01/18/25 10:48 Source: patient Mode of arrival: ambulatory Limitations: no limitations History of Present Illness: Patient is a 24-year-old female presents to ED today with a complaint of lower abdominal pain mainly to her right lower quadrant. She states pain has been present over the past 2 weeks. Her grandmother was recently terminally ill so she has delayed medical care to be with her. Patient states pain has acutely worsened over the past 48 to 72 hours. She is having nausea and vomiting. No fevers. She does feel like when she strains to urinate or defecate, that it makes her pain significantly worse. She does have a history of ovarian cysts but is not sure if this is similar. She does not have any vaginal bleeding. Reportedly denies concern for . MD elicited complaint: abdominal pain Pertinent past history: none Onset (ago): week(s) Pain Consistency: constant Location: RLQ Severity: severe Quality: sharp Radiation: none Migration to: no migration Exacerbating factors: bowel movement and other (urination) Relieving factors: nothing Associated Symptoms: Reports nausea and vomiting; Denies change in bowel habits, chills, constipation, diarrhea, dysuria, fever(s) and hematuria Related Data Home Medications ?Medication ?Instructions ?Recorded ?Confirmed desvenlafaxine succinate 100 mg 100 mg PO DAILY 07/07/24 01/18/25 tablet,extended release 24 hr levonorgestrel (Mirena) 1 device intrauterine .Q8Y 09/03/24 01/18/25 buspirone 10 mg tablet 10 mg PO BID 01/18/25 01/18/25 imipramine HCl 10 mg tablet 10 mg PO BEDTIME 01/18/25 01/18/25 ondansetron 4 mg disintegrating 4 mg PO Q4H PRN Nausea And Vomiting 01/18/25 01/18/25 tablet propranolol 20 mg tablet 20 mg PO BID 01/18/25 01/18/25 Previous Rx's ?Medication ?Instructions ?Recorded pantoprazole 40 mg tablet,delayed 40 mg PO BID #90 tabs 01/21/22 release arm brace #2 ea 06/27/22 diazepam 10 mg tablet (Valium) 10 mg PO .PRN PRN anxiety 3 months 04/08/24 #7 tabs sumatriptan succinate 100 mg 100 mg PO Q2H PRN migraines #30 04/08/24 tablet (Imitrex) tabs promethazine 25 mg tablet 25 mg PO Q6H PRN nausea and 04/28/24 vomiting #20 tabs pregabalin 50 mg capsule (Lyrica) 50 mg PO Q8H #90 caps 08/05/24 tizanidine 4 mg tablet (Zanaflex) 8 mg (2 x 4 mg) PO TID #180 tabs 08/05/24 onabotulinumtoxinA 100 unit See Rx Instructions .Route 12/27/24 solution for injection (Botox) .COMPLEX #2 ea hydrocodone 5 mg-acetaminophen 325 1 tab PO Q6H PRN pain #10 tabs 01/18/25 mg tablet promethazine 50 mg tablet 50 mg PO TID PRN nausea and 01/18/25 vomiting #14 tabs Allergies Allergy/AdvReac Type Severity Reaction Status Date / Time Penicillins Allergy rash Verified 01/06/25 14:20 Review of Systems Const: Denies: fever(s), chills, body aches, fatigue or malaise Card: Denies: chest pain Resp: Denies: dyspnea GI: Reports: abdominal pain, nausea, vomiting and pain on defecation; Denies: diarrhea, constipation or change in bowel habits : Reports: urinary urgency and urinary hesitancy; Denies: flank pain, difficulty voiding, dysuria, urinary frequency, hematuria, vaginal bleeding or vaginal discharge Musc: Denies: back pain Skin/Breast: Denies: rash Neuro: Denies: headache(s) or dizziness PFSH ED PFSH: Medical History Hypertension No pertinent past medical history negx: dm,thyroid,dvt/pe PCP: [facility] Adverse effect of COVID-19 vaccine Cerebral palsy Brain injury at Chronic migraine without aura, intractable, with status migrainosus Foot anomaly, congenital Surgical History History of back surgery at age 13 Hx of release of tendon multiple, most recently was in 2019 S/P matrixectomy of toe Family History Grandmother Diabetes Maternal Hypertension Maternal Stroke Maternal Grandfather Diabetes Maternal Heart disease Paternal Mother Hypertension Denies family history of Colon cancer Ovarian cancer Hypercholesteremia Breast cancer Uterine cancer Thyroid disease Social History Smoking and tobacco/nicotine status: never used tobacco/nicotine Substance/Drug Use: never Do you think of yourself as: Straight/Heterosexual Physical Exam Const: COMMON NORMALS: patient oriented x3, no limitations, alert and well nourished GENERAL APPEARANCE: cooperative and in distress (visibly uncomfortable) NUTRITIONAL APPEARANCE: overweight ORIENTATION/CONSCIOUSNESS: Yes awake, Yes oriented to person, Yes oriented to place and Yes oriented to time Eye: COMMON NORMALS: no scleral icterus Resp: COMMON NORMALS: normal respiratory effort and clear to auscultation bilaterally AUSCULTATION: clear to auscultation bilaterally Cardio: COMMON NORMALS: regular rate and regular rhythm RATE: regular rate RHYTHM: regular rhythm GI: COMMON NORMALS: Normal to inspection, nondistended, normoactive bowel sounds present, Soft to palpation, No hepatosplenomegaly present and no masses INSPECTION: Yes normal to inspection AUSCULTATION: Yes normoactive bowel sounds PALPATION: Yes Soft to palpation, Yes Tenderness to palpation present (GI) (across lower abdomen), Yes Guarding due to palpation present (GI), No Rigid due to palpation and Yes No hepatosplenomegaly present : COMMON NORMALS: Yes no CVA tenderness BLADDER/KIDNEY EXAM: Yes no CVA tenderness Back/Pelvis: COMMON NORMALS: no CVA tenderness, thoracic and lumbar spine normal to inspection, no thoracic nor lumbar tenderness, thoraco-lumbar ROM normal and straight leg raise negative bilaterally Extremity: GENERAL: Yes normal exam except as noted Neuro: AMERICO COMA SCALE: document GCS findings [place] coma scale eye opening: Spontaneous [place] coma scale verbal response: Orientated [place] coma scale motor response: Obey commands [place] coma scale total score: 15 COMMON NORMALS: patient oriented x3, moves all extremities, no focal motor deficits and no sensory deficits noted SENSORIUM/ORIENTATION: Yes alert, Yes oriented to person, Yes oriented to place and Yes oriented to time Skin: COMMON NORMALS: no rashes or lesions noted GENERAL SKIN EXAM: no rashes or lesions noted Course Vital Signs: Vital signs: Vital Signs Temperature 98.3 F 01/18/25 10:49 Pulse Rate 100 01/18/25 14:28 Respiratory Rate 96 H 01/18/25 14:05 Blood Pressure 160/114 01/18/25 14:00 Pulse Oximetry 97 01/18/25 14:28 Oxygen Delivery Me thod Room Air 01/18/25 14:00 MDM - Abdominal Pain Medical Decision Making Patient is a 24-year-old female here for significant right lower quadrant abdominal pain, nausea, vomiting. She does visibly appear uncomfortable. Vital signs are stable. White count is 13.3. Remainder of blood work is unremarkable. UA is contaminated. CT scan of her abdomen showing cystic dilatation of her appendix without adjacent inflammation. Possibility of developing mucocele should be considered with recommendations for surgical evaluation. Spoke to Dr. Pereira who had planned on OR tomorrow. He did come and speak to patient but after speaking with her, she would rather go home. Risks of this discussed with patient. Will place case management referral to get her set up with general surgery as an outpatient. She is requesting pain and nausea medications to go home with. Strict return to ED precautions discussed. Medical Records I reviewed the patient's medical records. Lab Data I reviewed the patient's lab results. 01/18/25 12:18 01/18/25 11:35 Labs/Radiology: Radiology Impressions Abdomen/Pelvis CT 01/18/25 11:08 IMPRESSION: 1. No renal obstruction or perinephric stranding. 2. Mild cystic dilatation of the appendix is new since 07/08/2024. There is no adjacent inflammation. Possibility of a developing mucocele should be considered. Recommend surgical evaluation for consideration of appendectomy. At this time this does not appear to be acute appendicitis. 3. Several small RIGHT lower quadrant lymph nodes can be seen with mesenteric adenitis. 4. Mild stable atrophy RIGHT kidney. Laboratory Results WBC 13.37 10^3/uL (3.29-11.43) H 01/18/25 12:18 Corrected WBC Cancelled 01/18/25 11:35 RBC 4.91 10^6/uL (3.85-5.65) 01/18/25 12:18 Hgb 14.70 g/dL (11.27-16.99) 01/18/25 12:18 Hct 43.7 % (36-47) 01/18/25 12:18 MCV 89.0 fl (85-98) 01/18/25 12:18 MCH 29.9 pg (27-33) 01/18/25 12:18 MCHC 33.6 g/dL (30-55) 01/18/25 12:18 RDW 11.9 % (12.1-15.1) L 01/18/25 12:18 Plt Count 404 10^3/cmm (157-399) H 01/18/25 12:18 MPV 8.5 fL (7.4-10.4) 01/18/25 12:18 Gran % Cancelled 01/18/25 11:35 Neut % (Auto) 80.6 % 01/18/25 12:18 Lymph % (Auto) 13.8 % 01/18/25 12:18 Nye % (Auto) 4.0 % 01/18/25 12:18 Eos % (Auto) 0.8 % 01/18/25 12:18 Baso % (Auto) 0.6 % 01/18/25 12:18 Neut # (Auto) 10.76 10^3/uL (1.8-7.7) H 01/18/25 12:18 Lymph # (Auto) 1.9 10^3/uL (0.8-4.8) 01/18/25 12:18 Nye # (Auto) 0.5 10^3/uL (0.2-0.9) 01/18/25 12:18 Eos # (Auto) 0.1 10^3/uL (0.0-0.8) 01/18/25 12:18 Baso # (Auto) 0.1 10^3/uL (0.0-0.1) 01/18/25 12:18 Absolute Gran (auto) Cancelled 01/18/25 11:35 Nucleated RBC % (auto) 0 % 01/18/25 12:18 Nucleated RBCs # 0.0 /100WBC 01/18/25 12:18 Sodium 140 mmol/L (136-145) 01/18/25 11:35 Potassium 3.7 mmol/L (3.5-5.1) 01/18/25 11:35 Chloride 105 mmol/L (98-107) 01/18/25 11:35 Carbon Dioxide 21 mmol/L (22-29) L 01/18/25 11:35 Anion Gap 17.7 (5-19) 01/18/25 11:35 BUN 8 mg/dL (6-20) 01/18/25 11:35 Creatinine 0.5 mg/dL (0.5-0.9) 01/18/25 11:35 GFR Calculation 152.9 mL/min (90-130) H 01/18/25 11:35 Glucose 104 mg/dL (65-115) 01/18/25 11:35 Calculated Osmolality 289 mOsm/kg (285-295) 01/18/25 11:35 Calcium 9.7 mg/dL (8.5-10.5) 01/18/25 11:35 Total Bilirubin 0.9 mg/dL (0.15-1.2) 01/18/25 11:35 AST 24 U/L (0-32) 01/18/25 11:35 ALT 21 U/L (0-33) 01/18/25 11:35 Alkaline Phosphatase 95 U/L (35-105) 01/18/25 11:35 Total Protein 8.7 g/dL (6.6-8.7) 01/18/25 11:35 Albumin 4.4 g/dL (3.5-5.2) 01/18/25 11:35 Globulin 4.3 g/dL (1.3-4.6) 01/18/25 11:35 Lipase 29 U/L (13-60) 01/18/25 11:35 HCG, Qual Negative (Negative) 01/18/25 11:35 Urine Color Yellow (Yellow) 01/18/25 11:35 Urine Appearance Clear (CLEAR) 01/18/25 11:35 Urine pH 8.0 (5-7) A 01/18/25 11:35 Ur Specific Irene 1.029 (1.005-1.030) 01/18/25 11:35 Urine Protein 1+ (Negative) A 01/18/25 11:35 Urine Glucose (UA) Negative (Normal) 01/18/25 11:35 Urine Ketones Trace (Negative) 01/18/25 11:35 Urine Blood Negative (Negative) 01/18/25 11:35 Urine Nitrate Negative (Negative) 01/18/25 11:35 Urine Bilirubin Negative (Negative) 01/18/25 11:35 Urine Urobilinogen 1.0 mg/dL (Negative) 01/18/25 11:35 Ur Leukocyte Esterase Trace (Negative) A 01/18/25 11:35 Urine RBC 3-5 /hpf (0-2) 01/18/25 11:35 Urine WBC 6-10 /hpf (0-5) 01/18/25 11:35 Ur Squamous Epith Cells 11-20 /hpf (0-5) H 01/18/25 11:35 Amorphous Sediment Not Reportable 01/18/25 11:35 Urine Bacteria 1+ /hpf (NONE) H 01/18/25 11:35 Hyaline Casts 1.65 /lpf 01/18/25 11:35 All radiology interpretation(s) finalized by discharge Discharge Plan Discharge Patient Disposition: Home Clinical Impression: Mucocele of appendix Condition: Stable Prescriptions: New promethazine 50 mg tablet 50 mg PO TID PRN (Reason: nausea and vomiting) Qty: 14 0RF hydrocodone-acetaminophen 5-325 mg tablet 1 tab PO Q6H PRN (Reason: pain) Qty: 10 0RF No Action tizanidine [Zanaflex] 4 mg tablet 8 mg PO TID Qty: 180 5RF pregabalin [Lyrica] 50 mg capsule 50 mg PO Q8H Qty: 90 5RF (DME) arm brace Misc See Rx Instructions .Route Qty: 2 0RF Rx Instructions: As directed diazepam [Valium] 10 mg tablet 10 mg PO .PRN PRN (Reason: anxiety) 90 Days Qty: 7 2RF Rx Instructions: As needed for Botox sumatriptan succinate [Imitrex] 100 mg tablet 100 mg PO Q2H PRN (Reason: migraines) Qty: 30 3RF Mirena 21 mcg/24hr (up to 8 yrs) 52 mg intrauterine device 1 device intrauterine .Q8Y Botox 100 unit recon soln See Rx Instructions .ROUTE .COMPLEX Qty: 2 0RF Dose Instruction: Inject 155 units IM-31 sites, 5 units/site per FDA protocol: in procerus, in bilateral rn transitional, frontalis (2 sites bilaterally),temporalis (4 sites bilateral), occipitalis (3 sites bilateral), paraspinosus cervical bilaterally (2 injections), trapezius (3 sites bilateral) Rx Instructions: Inject 155 units IM-31 sites, 5 units/site per FDA protocol: in procerus, in bilateral rn transitional, frontalis (2 sites bilaterally),temporalis (4 sites bilateral), occipitalis (3 sites bilateral), paraspinosus cervical bilaterally (2 injections), trapezius (3 sites bilateral) promethazine 25 mg tablet 25 mg PO Q6H PRN (Reason: nausea and vomiting) Qty: 20 0RF desvenlafaxine succinate 100 mg tablet extended release 24 hr 100 mg PO DAILY pantoprazole 40 mg tablet,delayed release (DR/EC) 40 mg PO BID Qty: 90 8RF buspirone 10 mg tablet 10 mg PO BID imipramine HCl 10 mg tablet 10 mg PO BEDTIME propranolol 20 mg tablet 20 mg PO BID ondansetron 4 mg tablet,disintegrating 4 mg PO Q4H PRN (Reason: Nausea And Vomiting) Discharge Orders: Discharge ED (Routine); Ordered 01/18/25 Ordered By: Katya Garcia Referrals: Damari Lowery FNP [Primary Care Provider] Patient Instructions: Opioid Safety, Pain Management, Patient Portal & Dalia Instructions Activity Restrictions/Additional Instructions: As we discussed, you have been offered admission into the hospital for an appendectomy but you have declined. You would like to go home. Will prescribe you pain and nausea medications you may take sparingly. As we discussed in detail, you need to return to the emergency department for worsening abdominal pain, continued episodes of vomiting, fevers, generally feeling worse or unwell, or any other concerns you may have. 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 [employer] Fwd Documented by User: Alexandre Sarabia DO 01/18/25 18:57 HPI - Abdominal Pain General: Chief Complaint: Abdominal Pain Stated Complaint: exteme abd pain, doc sent Time Seen by Provider: 01/18/25 10:48 Related Data Home Medications ?Medication ?Instructions ?Recorded ?Confirmed desvenlafaxine succinate 100 mg 100 mg PO DAILY 07/07/24 01/18/25 tablet,extended release 24 hr levonorgestrel (Mirena) 1 device intrauterine .Q8Y 09/03/24 01/18/25 buspirone 10 mg tablet 10 mg PO BID 01/18/25 01/18/25 imipramine HCl 10 mg tablet 10 mg PO BEDTIME 01/18/25 01/18/25 ondansetron 4 mg disintegrating 4 mg PO Q4H PRN Nausea And Vomiting 01/18/25 01/18/25 tablet propranolol 20 mg tablet 20 mg PO BID 01/18/25 01/18/25 Previous Rx's ?Medication ?Instructions ?Recorded pantoprazole 40 mg tablet,delayed 40 mg PO BID #90 tabs 01/21/22 release arm brace #2 ea 06/27/22 diazepam 10 mg tablet (Valium) 10 mg PO .PRN PRN anxiety 3 months 04/08/24 #7 tabs sumatriptan succinate 100 mg 100 mg PO Q2H PRN migraines #30 04/08/24 tablet (Imitrex) tabs promethazine 25 mg tablet 25 mg PO Q6H PRN nausea and 04/28/24 vomiting #20 tabs pregabalin 50 mg capsule (Lyrica) 50 mg PO Q8H #90 caps 08/05/24 tizanidine 4 mg tablet (Zanaflex) 8 mg (2 x 4 mg) PO TID #180 tabs 08/05/24 onabotulinumtoxinA 100 unit See Rx Instructions .Route 12/27/24 solution for injection (Botox) .COMPLEX #2 ea hydrocodone 5 mg-acetaminophen 325 1 tab PO Q6H PRN pain #10 tabs 01/18/25 mg tablet promethazine 50 mg tablet 50 mg PO TID PRN nausea and 01/18/25 vomiting #14 tabs Allergies Allergy/AdvReac Type Severity Reaction Status Date / Time Penicillins Allergy rash Verified 01/06/25 14:20 PFS ED PFSH: Medical History Hypertension No pertinent past medical history negx: dm,thyroid,dvt/pe PCP: [facility] Adverse effect of COVID-19 vaccine Cerebral palsy Brain injury at Chronic migraine without aura, intractable, with status migrainosus Foot anomaly, congenital Surgical History History of back surgery at age 13 Hx of release of tendon multiple, most recently was in 2019 S/P matrixectomy of toe Family History Grandmother Diabetes Maternal Hypertension Maternal Stroke Maternal Grandfather Diabetes Maternal Heart disease Paternal Mother Hypertension Denies family history of Colon cancer Ovarian cancer Hypercholesteremia Breast cancer Uterine cancer Thyroid disease Social History Smoking and tobacco/nicotine status: never used tobacco/nicotine Substance/Drug Use: never Do you think of yourself as: Straight/Heterosexual Physical Exam Neuro: AMERICO COMA SCALE: document GCS findings [place] coma scale total score: 15 Course Vital Signs: Vital signs: Vital Signs Temperature 98.3 F 01/18/25 10:49 Pulse Rate 100 01/18/25 14:28 Respiratory Rate 96 H 01/18/25 14:05 Blood Pressure 160/114 01/18/25 14:00 Pulse Oximetry 97 01/18/25 14:28 Oxygen Delivery Me thod Room Air 01/18/25 14:00 MDM - Abdominal Pain Medical Decision Making Patient is a 24-year-old female here for significant right lower quadrant abdominal pain, nausea, vomiting. She does visibly appear uncomfortable. Vital signs are stable. White count is 13.3. Remainder of blood work is unremarkable. UA is contaminated. CT scan of her abdomen showing cystic dilatation of her appendix without adjacent inflammation. Possibility of developing mucocele should be considered with recommendations for surgical evaluation. Spoke to Dr. Pereira who had planned on OR tomorrow. He did come and speak to patient but after speaking with her, she would rather go home. Risks of this discussed with patient. Will place case management referral to get her set up with general surgery as an outpatient. She is requesting pain and nausea medications to go home with. Strict return to ED precautions discussed. Chart reviewed and patient discussed with midlevel. Agree with assessment and plan. Lab Data 01/18/25 12:18 01/18/25 11:35 Labs/Radiology: Radiology Impressions Abdomen/Pelvis CT 01/18/25 11:08 IMPRESSION: 1. No renal obstruction or perinephric stranding. 2. Mild cystic dilatation of the appendix is new since 07/08/2024. There is no adjacent inflammation. Possibility of a developing mucocele should be considered. Recommend surgical evaluation for consideration of appendectomy. At this time this does not appear to be acute appendicitis. 3. Several small RIGHT lower quadrant lymph nodes can be seen with mesenteric adenitis. 4. Mild stable atrophy RIGHT kidney. Laboratory Results WBC 13.37 10^3/uL (3.29-11.43) H 01/18/25 12:18 Corrected WBC Cancelled 01/18/25 11:35 RBC 4.91 10^6/uL (3.85-5.65) 01/18/25 12:18 Hgb 14.70 g/dL (11.27-16.99) 01/18/25 12:18 Hct 43.7 % (36-47) 01/18/25 12:18 MCV 89.0 fl (85-98) 01/18/25 12:18 MCH 29.9 pg (27-33) 01/18/25 12:18 MCHC 33.6 g/dL (30-55) 01/18/25 12:18 RDW 11.9 % (12.1-15.1) L 01/18/25 12:18 Plt Count 404 10^3/cmm (157-399) H 01/18/25 12:18 MPV 8.5 fL (7.4-10.4) 01/18/25 12:18 Gran % Cancelled 01/18/25 11:35 Neut % (Auto) 80.6 % 01/18/25 12:18 Lymph % (Auto) 13.8 % 01/18/25 12:18 Nye % (Auto) 4.0 % 01/18/25 12:18 Eos % (Auto) 0.8 % 01/18/25 12:18 Baso % (Auto) 0.6 % 01/18/25 12:18 Neut # (Auto) 10.76 10^3/uL (1.8-7.7) H 01/18/25 12:18 Lymph # (Auto) 1.9 10^3/uL (0.8-4.8) 01/18/25 12:18 Nye # (Auto) 0.5 10^3/uL (0.2-0.9) 01/18/25 12:18 Eos # (Auto) 0.1 10^3/uL (0.0-0.8) 01/18/25 12:18 Baso # (Auto) 0.1 10^3/uL (0.0-0.1) 01/18/25 12:18 Absolute Gran (auto) Cancelled 01/18/25 11:35 Nucleated RBC % (auto) 0 % 01/18/25 12:18 Nucleated RBCs # 0.0 /100WBC 01/18/25 12:18 Sodium 140 mmol/L (136-145) 01/18/25 11:35 Potassium 3.7 mmol/L (3.5-5.1) 01/18/25 11:35 Chloride 105 mmol/L (98-107) 01/18/25 11:35 Carbon Dioxide 21 mmol/L (22-29) L 01/18/25 11:35 Anion Gap 17.7 (5-19) 01/18/25 11:35 BUN 8 mg/dL (6-20) 01/18/25 11:35 Creatinine 0.5 mg/dL (0.5-0.9) 01/18/25 11:35 GFR Calculation 152.9 mL/min (90-130) H 01/18/25 11:35 Glucose 104 mg/dL (65-115) 01/18/25 11:35 Calculated Osmolality 289 mOsm/kg (285-295) 01/18/25 11:35 Calcium 9.7 mg/dL (8.5-10.5) 01/18/25 11:35 Total Bilirubin 0.9 mg/dL (0.15-1.2) 01/18/25 11:35 AST 24 U/L (0-32) 01/18/25 11:35 ALT 21 U/L (0-33) 01/18/25 11:35 Alkaline Phosphatase 95 U/L (35-105) 01/18/25 11:35 Total Protein 8.7 g/dL (6.6-8.7) 01/18/25 11:35 Albumin 4.4 g/dL (3.5-5.2) 01/18/25 11:35 Globulin 4.3 g/dL (1.3-4.6) 01/18/25 11:35 Lipase 29 U/L (13-60) 01/18/25 11:35 HCG, Qual Negative (Negative) 01/18/25 11:35 Urine Color Yellow (Yellow) 01/18/25 11:35 Urine Appearance Clear (CLEAR) 01/18/25 11:35 Urine pH 8.0 (5-7) A 01/18/25 11:35 Ur Specific Irene 1.029 (1.005-1.030) 01/18/25 11:35 Urine Protein 1+ (Negative) A 01/18/25 11:35 Urine Glucose (UA) Negative (Normal) 01/18/25 11:35 Urine Ketones Trace (Negative) 01/18/25 11:35 Urine Blood Negative (Negative) 01/18/25 11:35 Urine Nitrate Negative (Negative) 01/18/25 11:35 Urine Bilirubin Negative (Negative) 01/18/25 11:35 Urine Urobilinogen 1.0 mg/dL (Negative) 01/18/25 11:35 Ur Leukocyte Esterase Trace (Negative) A 01/18/25 11:35 Urine RBC 3-5 /hpf (0-2) 01/18/25 11:35 Urine WBC 6-10 /hpf (0-5) 01/18/25 11:35 Ur Squamous Epith Cells 11-20 /hpf (0-5) H 01/18/25 11:35 Amorphous Sediment Not Reportable 01/18/25 11:35 Urine Bacteria 1+ /hpf (NONE) H 01/18/25 11:35 Hyaline Casts 1.65 /lpf 01/18/25 11:35 Discharge Plan Discharge Patient Disposition: Home Clinical Impression: Mucocele of appendix Condition: Stable Prescriptions: New promethazine 50 mg tablet 50 mg PO TID PRN (Reason: nausea and vomiting) Qty: 14 0RF hydrocodone-acetaminophen 5-325 mg tablet 1 tab PO Q6H PRN (Reason: pain) Qty: 10 0RF No Action tizanidine [Zanaflex] 4 mg tablet 8 mg PO TID Qty: 180 5RF pregabalin [Lyrica] 50 mg capsule 50 mg PO Q8H Qty: 90 5RF (DME) arm brace Misc See Rx Instructions .Route Qty: 2 0RF Rx Instructions: As directed diazepam [Valium] 10 mg tablet 10 mg PO .PRN PRN (Reason: anxiety) 90 Days Qty: 7 2RF Rx Instructions: As needed for Botox sumatriptan succinate [Imitrex] 100 mg tablet 100 mg PO Q2H PRN (Reason: migraines) Qty: 30 3RF Mirena 21 mcg/24hr (up to 8 yrs) 52 mg intrauterine device 1 device intrauterine .Q8Y Botox 100 unit recon soln See Rx Instructions .ROUTE .COMPLEX Qty: 2 0RF Dose Instruction: Inject 155 units IM-31 sites, 5 units/site per FDA protocol: in procerus, in bilateral rn transitional, frontalis (2 sites bilaterally),temporalis (4 sites bilateral), occipitalis (3 sites bilateral), paraspinosus cervical bilaterally (2 injections), trapezius (3 sites bilateral) Rx Instructions: Inject 155 units IM-31 sites, 5 units/site per FDA protocol: in procerus, in bilateral rn transitional, frontalis (2 sites bilaterally),temporalis (4 sites bilateral), occipitalis (3 sites bilateral), paraspinosus cervical bilaterally (2 injections), trapezius (3 sites bilateral) promethazine 25 mg tablet 25 mg PO Q6H PRN (Reason: nausea and vomiting) Qty: 20 0RF desvenlafaxine succinate 100 mg tablet extended release 24 hr 100 mg PO DAILY pantoprazole 40 mg tablet,delayed release (DR/EC) 40 mg PO BID Qty: 90 8RF buspirone 10 mg tablet 10 mg PO BID imipramine HCl 10 mg tablet 10 mg PO BEDTIME propranolol 20 mg tablet 20 mg PO BID ondansetron 4 mg tablet,disintegrating 4 mg PO Q4H PRN (Reason: Nausea And Vomiting) Discharge Orders: Discharge ED (Routine); Ordered 01/18/25 Ordered By: Katya Garcia Referrals: Damari Lowery FNP [Primary Care Provider] Patient Instructions: Opioid Safety, Pain Management, Patient Portal & Dalia Instructions Activity Restrictions/Additional Instructions: As we discussed, you have been offered admission into the hospital for an appendectomy but you have declined. You would like to go home. Will prescribe you pain and nausea medications you may take sparingly. As we discussed in detail, you need to return to the emergency department for worsening abdominal pain, continued episodes of vomiting, fevers, generally feeling worse or unwell, or any other concerns you may have. 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
--- NOTE | 2025-01-18 11:08 | CT_ITS ---
WS: [id number] CT ABDOMEN AND PELVIS WITH CONTRAST HISTORY: diffuse low abdominal pain, N/V TECHNIQUE: Imaging performed of the abdomen and pelvis with IV contrast. Single phase imaging of the abdomen. Coronal and sagittal reformats are submitted. All CT scans at [facility] use at least one of these dose optimization techniques: automated exposure control; mA and/or kV adjustment per patient size (includes targeted exams where dose is matched to clinical indication); or iterative reconstruction. IV CONTRAST: Omnipaque 350; 100 mL IV. Oral contrast: No DLP: 930.23 mGy.cm COMPARISON: 07/08/2024 Lower thorax: Stable micronodule 2 mm RIGHT lung base. Heart is normal size. No hiatal hernia. Liver/biliary system: Normal size with no intrahepatic dilatation. Gallbladder: Normal. No gallstones or wall thickening. No pericholecystic fluid. Pancreas: Normal size pancreas and pancreatic duct. No adjacent inflammation. Spleen: Normal size spleen. No mass or infarct. Adrenal glands: Normal RIGHT adrenal gland. Partially calcified LEFT adrenal gland similar to the prior study. Right kidney: Mild atrophy RIGHT kidney with areas of cortical thinning and scarring. No obstruction or mass. Normal enhancement. Left kidney: Normal. Aorta: Normal. Lymphadenopathy: Small RIGHT lower quadrant lymph nodes. Free fluid: None. GI tract: Stomach is distended with fluid. No small bowel obstruction. Appendix is identified and there is mild cystic dilatation of the appendix which is new since prior studies. Largest cystic dilatation is 11 mm. There is a loop of small bowel closely associated with the appendix but the cystic area appears inseparable from the appendix. There is no evidence for acute appendicitis. No colitis. Abdominal wall: Unremarkable abdominal wall. No hernia. Pelvis: No free fluid or adenopathy within the pelvis. IUD is in place. Reidentified is a small follicle associated with the RIGHT ovary measuring 1.7 cm. Bones: Unremarkable. CT/CT abdomen pelvis w con* [id number] IMPRESSION: 1. No renal obstruction or perinephric stranding. 2. Mild cystic dilatation of the appendix is new since 07/08/2024. There is no adjacent inflammation. Possibility of a developing mucocele should be considere d. Recommend surgical evaluation for consideration of appendectomy. At this samreen e this does not appear to be acute appendicitis. 3. Several small RIGHT lower quadrant lymph nodes can be seen with mesenteric adenitis. 4. Mild stable atrophy RIGHT kidney.
[2025-01-18] MEDS: ondansetron 2 mg/ML SDV 2 mL 4 MG IVP (11:26)
[2025-01-18] MEDS: morphine 4 mg/mL SDV 1 mL IVP ×2 (11:26→14:05)
[2025-01-18 12:11] LABS: Alanine Aminotransferase 21 U/L (0-33); Albumin Level 4.4 g/dL (3.5-5.2); Alkaline Phosphatase 95 U/L (35-105); Blood Urea Nitrogen 8 mg/dL (6-20); Calcium 9.7 mg/dL (8.5-10.5); Carbon Dioxide 21 mmol/L (22-29); Chloride 105 mmol/L (98-107); Creatinine Clr Calc Pharmacy 176.6630; Globulin 4.3 g/dL (1.3-4.6); Glucose 104 mg/dL (65-115); Lipase 29 U/L (13-60); Osmolality Calculated 289 mOsm/kg (285-295); Sodium 140 mmol/L (136-145); Total Protein 8.7 g/dL (6.6-8.7)
[2025-01-18 12:15] LABS: Glucose Urine UA Negative (Normal); Nitrate Urine Negative (Negative); Specific Gravity, Urine 1.029 (1.005-1.030)
[2025-01-18 12:18] LABS: HCG, Serum Qual Negative (Negative)
[2025-01-18 12:20] LABS: Add Urine Microscopic? YES
[2025-01-18 12:24] LABS: Hematocrit 43.7 % (36-47); Hemoglobin 14.70 g/dL (11.27-16.99); Mean Corpuscular HGB Conc 33.6 g/dL (30-55); Mean Corpuscular Hemoglobin 29.9 pg (27-33); Mean Corpuscular Volume 89.0 fl (85-98); Nucleated Red Blood Cells % 0 %; Platelet Count 404 10^3/cmm (157-399); Red Blood Count 4.91 10^6/uL (3.85-5.65); White Blood Count 13.37 10^3/uL (3.29-11.43)
[2025-01-18 12:26] LABS: Anion Gap 17.7 (5-19); Aspartate Amino Transferase 24 U/L (0-32); Potassium 3.7 mmol/L (3.5-5.1)
[2025-01-18] MEDS: iohexol 350 mg/mL 500 mL Btl (per mL) IV (12:42)
[2025-01-18] MEDS: metoclopramide 5 mg/mL SDV 2 mL 10 MG IVP (13:23)
--- NOTE | 2025-01-18 13:48 | PM.HP ---
Providers/Chief Complaint Primary Care Provider: BELA Thomas Chief Complaint: exteme abd pain, doc sent History of Present Illness Shonna Riojas is a 24 year old female who presented with right lower quadrant pain. CT scan demonstrated a possible mucocele. Patient has been having issues for weeks. Medications/Allergies Home Medications ?Medication ?Instructions ?Recorded ?Confirmed ?Last Taken ?Type pantoprazole 40 mg tablet,delayed 40 mg PO BID #90 tabs 01/21/22 01/18/25 01/17/25 Rx release arm brace #2 ea 06/27/22 01/18/25 Unknown Rx diazepam 10 mg tablet (Valium) 10 mg PO .PRN PRN anxiety 3 months 04/08/24 01/18/25 01/03/25 Rx #7 tabs sumatriptan succinate 100 mg 100 mg PO Q2H PRN migraines #30 04/08/24 01/18/25 04/26/24 Rx tablet (Imitrex) tabs promethazine 25 mg tablet 25 mg PO Q6H PRN nausea and 04/28/24 01/18/25 Unknown Rx vomiting #20 tabs desvenlafaxine succinate 100 mg 100 mg PO DAILY 07/07/24 01/18/25 01/17/25 History tablet,extended release 24 hr pregabalin 50 mg capsule (Lyrica) 50 mg PO Q8H #90 caps 08/05/24 01/18/25 01/17/25 Rx tizanidine 4 mg tablet (Zanaflex) 8 mg (2 x 4 mg) PO TID #180 tabs 08/05/24 01/18/25 01/17/25 Rx levonorgestrel (Mirena) 1 device intrauterine .Q8Y 09/03/24 01/18/25 09/29/24 History onabotulinumtoxinA 100 unit See Rx Instructions .Route 12/27/24 01/18/25 01/03/25 Rx solution for injection (Botox) .COMPLEX #2 ea buspirone 10 mg tablet 10 mg PO BID 01/18/25 01/18/25 Unknown History hydrocodone 5 mg-acetaminophen 325 1 tab PO Q6H PRN pain #10 tabs 01/18/25 Unknown Rx mg tablet imipramine HCl 10 mg tablet 10 mg PO BEDTIME 01/18/25 01/18/2501/17/25 History ondansetron 4 mg disintegrating 4 mg PO Q4H PRN Nausea And Vomiting 01/18/25 01/18/25 Unknown History tablet promethazine 50 mg tablet 50 mg PO TID PRN nausea and 01/18/25 Unknown Rx vomiting #14 tabs propranolol 20 mg tablet 20 mg PO BID 01/18/25 01/18/25 01/17/25 History Allergies Allergy/AdvReac Type Severity Reaction Status Date / Time Penicillins Allergy rash Verified 01/06/25 14:20 PFSH Acute PFSH: Medical History (Updated 01/18/25 @ 13:50 by EDVIN Mckay) Hypertension No pertinent past medical history negx: dm,thyroid,dvt/pe PCP: [facility] Adverse effect of COVID-19 vaccine Cerebral palsy Brain injury at Chronic migraine without aura, intractable, with status migrainosus Foot anomaly, congenital Surgical History History of back surgery at age 13 Hx of release of tendon multiple, most recently was in 2019 S/P matrixectomy of toe Family History Grandmother Diabetes Maternal Hypertension Maternal Stroke Maternal Grandfather Diabetes Maternal Heart disease Paternal Mother Hypertension Denies family history of Colon cancer Ovarian cancer Hypercholesteremia Breast cancer Uterine cancer Thyroid disease Social History Smoking and tobacco/nicotine status: never used tobacco/nicotine Substance/Drug Use: never Do you think of yourself as: Straight/Heterosexual Vitals/I&O/Wt Last Vital Signs Temp 98.3 F 01/18/25 10:49 Pulse 96 01/18/25 13:00 Resp 19 H 01/18/25 11:43 BP 155/120 01/18/25 13:00 Pulse Ox 97 01/18/25 13:00 O2 Del Method Room Air 01/18/25 13:00 01/17/25 01/18/25 01/18/25 22:59 06:59 14:59 Intake Total 1000 / 1000 Balance 1000 / 1000 Weight last 48 hrs Weight 202 lb Physical Exam Narrative: Chest: Unlabored breathing room air. No lymphadenopathy. Heart: Regular rate and rhythm. Abdomen: Soft, tender right lower quadrant Data 01/18/25 12:18 01/18/25 11:35 A&P Assessment and plan 1. Mucocele of appendix: Plan: 24-year-old female who presented with an appendiceal mucocele. Discussed risk and benefits and patient did not agreed to proceed with laparoscopic appendectomy possible open. Patient requesting to be discharged from ED AGAINST MEDICAL ADVICE. PDMP PDMP Reviewed: Not Reviewed Attestations Medical Necessity Statement*: N/A Coding Level of Care Code 85329 Diagnoses Mucocele of appendix K38.8
--- NOTE | 2025-01-18 14:12 | PC.NURSE ---
Per Kathleen pt is requesting to go home and does not want to be admitted to hospital.
--- NOTE | 2025-01-20 07:23 | DCPLANNER ---
messaged gen surg for er f/u
== END 2025-01-18 14:29 | disposition home or self-care (01) ==
PROVIDERS: Emergency Provider Physician Assistant; PCP Nurse Practitioner Occupational Health
DX: K38.8 Other specified diseases of appendix (principal); I10 Essential (primary) hypertension
CPT/HCPCS: 36415; 74177; 80053; 81001; 83690; 84703; 85025; 87040; 96361; 96374; 96375; 96376; 99285; J2270; J2405; J2765; J7030

== ENCOUNTER → 2025-04-14 11:35 | Outpatient (BNVA) | payer MEDICARE, MEDICAID, SELFPAY | PROVIDERS: PCP Nurse Practitioner Occupational Health; Visit Provider Specialist | DX: G43.711 Chronic migraine without aura, intractable, with status migrainosus (principal); G80.1 Spastic diplegic cerebral palsy; G25.0 Essential tremor; M79.7 Fibromyalgia | CPT/HCPCS: 64615; 99213; J9999 ==